=== PATIENT | male | born 1960 | race Hispanic/Latino ===

== ENCOUNTER → 2018-12-12 | Outpatient (CLI) | payer MEDICARE, BC | END | disposition home or self-care (01) | LOC: RAH 13:57 | PROVIDERS: ATTEND Nurse Practitioner Family | DX: J34.2 Deviated nasal septum (principal) | CPT/HCPCS: 70450 ==

== ENCOUNTER → 2019-04-04 | Outpatient (CLI) | payer MEDICARE ==
[~2019-04-04] MED LIST: IOHEXOL 350 MG/ML 100ML INFUS..BTL IV ONE; IOHEXOL-350 75 ML VIAL IV ONE
== END | disposition home or self-care (01) ==
LOC: RAH 08:31
PROVIDERS: ATTEND Nurse Practitioner Family
DX: E27.9 Disorder of adrenal gland, unspecified (principal); N28.1 Cyst of kidney, acquired; J98.11 Atelectasis; R94.5 Abnormal results of liver function studies
CPT/HCPCS: 74170; Q9967

== ENCOUNTER 2019-11-28 14:00 | Inpatient (IN) | payer MEDICARE ==
[2019-11-27 10:36] LABS: BASOPHILS % (AUTO) 1.4 % (0.0-5.0); EOSINOPHILS % (AUTO) 4.7 % (0.0-8.0); HEMATOCRIT 43.1 % (42-54); LYMPHOCYTES % (AUTO) 33.6 % (21.0-51.0); MEAN CORPUSCULAR HEMOGLOBIN 28.7 pg (27.0-33.0); MEAN CORPUSCULAR HGB CONC 33.2 g/dL (32.0-36.0); MEAN CORPUSCULAR VOLUME 86.4 fL (79-99); MONOCYTES % (AUTO) 8.4 % (3.0-13.0); NEUTROPHILS % (AUTO) 51.5 % (40.0-77.0); PLATELET COUNT (AUTO) 432 K/uL (130-400); RED BLOOD CELL COUNT(AUTO) 4.99 MIL/uL (4.50-6.20); RED CELL DISTRIBUTION WIDTH 13.7 % (11.0-15.5); WHITE BLOOD COUNT (AUTO) 10.1 K/uL (4.8-10.8)
[2019-11-27 10:52] LABS: ALBUMIN 3.6 g/dL (3.5-5.0); BILIRUBIN,TOTAL 0.3 mg/dL (0.2-1.0); POTASSIUM 3.7 mmol/L (3.5-5.1); TOTAL PROTEIN, SERUM 8.5 g/dL (6.0-8.3)
[2019-11-27 10:56] LABS: PARTIAL THROMBOPLASTIN TIME 27.8 SEC (26.3-35.5)
[2019-11-27 12:35] LABS: INR 0.94 (0.85-1.15); PROTHROMBIN TIME 10.2 SEC (9.6-11.6)
[~2019-11-28] VITALS: Ht 157.5 cm; Wt 87.5 kg
[2019-11-30] MEDS: CEFAZOLIN SODIUM 1 GM VIAL IVP SCH (12:45)
--- NOTE | 2019-12-01 12:29 | NUR ---
Per Doctor Saul need to advise patient to come in early Wednesday for treatment prior to surgery on 12/04/19, I spoke to patient and he is aware to be here Wednesday12/03/19 at 8am per house.
[2019-12-01] MEDS: CEFAZOLIN SODIUM 1 GM VIAL IVP SCH (12:45)
[2019-12-02] MEDS: CEFAZOLIN SODIUM 1 GM VIAL IVP SCH (12:45)
[2019-12-03 08:00] VITALS: BP 132/65
--- NOTE | 2019-12-03 08:45 | NUR ---
DIRECT ADMIT pt ambulated to room 328 accopm by nurse and sister denies need for wheelchair oriented pt to room pt has home medications in room with him has mati hearing aides with him necklace and ring (gave to sister on admit ) discussed plan of care with pt and sister ,voices understanding ,denies questions pt speaks wolof sister speaks Cameroonian and Vietnamese
[2019-12-03] MEDS ORDERED: HYDR25TA PO (09:08)
[2019-12-03] MEDS ORDERED: LEVO150T11 PO (09:08)
[2019-12-03] MEDS ORDERED: METO50TA18 PO (09:08)
[2019-12-03] MEDS ORDERED: MECL-160 PO (09:08)
[2019-12-03] MEDS ORDERED: DOXA1TAB2 PO (09:08)
[2019-12-03] MEDS ORDERED: DULO60CA64 PO (09:08)
[2019-12-03] MEDS ORDERED: PRAV80TA21 PO (09:08)
[2019-12-03] MEDS ORDERED: AMLO-258 PO (09:08)
[2019-12-03] MEDS ORDERED: INSU500I SQ ×2 (09:08→09:13)
[2019-12-03] MEDS ORDERED: HUM (09:08)
[2019-12-03] MEDS ORDERED: POTASSIUM CL ER PO (09:08)
[2019-12-03] MEDS ORDERED: INSULIN GLARGINE 100 UNITS/ML 10 ML VIAL SQ SCH ×2 (09:30→21:00)
[2019-12-03] MEDS ORDERED: SODIUM CHLORIDE 0.9% 1000ML 1,000 ML IV ONE (09:52)
[2019-12-03] MEDS ORDERED: SODIUM CHLORIDE 0.9% 1000ML 1,000 ML IV SCH (10:00)
[2019-12-03 10:09] LABS: BASOPHILS % (AUTO) 1.5 % (0.0-5.0); EOSINOPHILS % (AUTO) 4.2 % (0.0-8.0); HEMATOCRIT 41.8 % (42-54); LYMPHOCYTES % (AUTO) 36.4 % (21.0-51.0); MEAN CORPUSCULAR HEMOGLOBIN 28.8 pg (27.0-33.0); MEAN CORPUSCULAR VOLUME 84.8 fL (79-99); MONOCYTES % (AUTO) 8.6 % (3.0-13.0); PLATELET COUNT (AUTO) 454 K/uL (130-400); RED BLOOD CELL COUNT(AUTO) 4.93 MIL/uL (4.50-6.20); RED CELL DISTRIBUTION WIDTH 13.6 % (11.0-15.5); WHITE BLOOD COUNT (AUTO) 8.8 K/uL (4.8-10.8)
[2019-12-03 10:26] LABS: HEMOGLOBIN A1C 7.5 % (4.0-6.0)
[2019-12-03 10:47] LABS: ALBUMIN 3.5 g/dL (3.5-5.0); BILIRUBIN,TOTAL 0.3 mg/dL (0.2-1.0); CREATININE 0.9 mg/dL (0.5-1.5); POTASSIUM 3.7 mmol/L (3.5-5.1); TOTAL PROTEIN, SERUM 8.1 g/dL (6.0-8.3)
[2019-12-03 12:00] VITALS: BP_SYST 120; BP_SYST 122; BP_SYST 134; BP_DIAS 59; BP_DIAS 65
[2019-12-03] MEDS: CEFAZOLIN SODIUM 1 GM VIAL IVP SCH (12:45)
[2019-12-03] MEDS ORDERED: INSULIN HUMULIN R 100 UNIT/ML 3ML ONE (12:52)
[2019-12-03] MEDS: INSULIN HUMULIN R 100 UNIT/ML 3ML SQ SCH ×3 (12:54→21:57)
[2019-12-03] MEDS: NS-20 MEQ KCL 1000ML 1,000 ML IV SCH ×3 (13:00→23:27)
[2019-12-03] MEDS ORDERED: POTASSIUM CHLORIDE 20 MEQ in SODIUM CHLORIDE 0.9% 1000ML 1,000 ML IV SCH (13:00)
[2019-12-03 16:00] VITALS: BP 149/64
[2019-12-03] MEDS: INSULIN LISPRO 100 UNIT/ML 3ML SQ SCH ×2 (16:12→19:06)
[2019-12-03] MEDS ORDERED: INSULIN LISPRO 100 UNIT/ML 3ML SQ SCH (16:30)
--- NOTE | 2019-12-03 17:42 | NUR ---
INITIAL: Met w pt and sister this afternoon to discuss dcp. Pt mentions that prior to admission he was living w his sister Anne. Pt is independent w ambulation and ADLs. He does not own any DME or receive services. Per pt he feels safe and comfortable to return home at ct, however if Md recommends he is willing to consider SNF. CM to continue to follow and wait for MD recommendations. Addendum: 12/03/19 at 1743 by PEACE OTOOLE Amended: Links added.
[2019-12-03 20:00] VITALS: BP 156/68
[2019-12-03] MEDS: METOPROLOL SUCCINATE 50 MG TAB.SR.24H PO SCH (21:50)
--- NOTE | 2019-12-03 21:50 | NUR ---
MEDS SHIFT ASSESSMENT DONE, PLEASE REFER TO CHART. PT HAS SPEECH IMPEDIMENT AND IS [place], FAMILY IS BEING ALLOWED TO STAY OVERNIGHT. DUE MEDS ADMINISTERED, TOLERATED WELL. INSTRUCTED TO BE NPO POST MN, VERBALIZES UNDERSTANDING. PT REQUESTED TO SHOWER IN THE AM. KEPT COMFORTABLE IN BED. CALL LIGHT WITHIN REACH. WILL MONITOR PT. Addendum: 12/04/19 at 0139 by KYLE CASTANEDA RN RN Amended: Links added.
[2019-12-03] MEDS: HYDROCORTISONE SOD SUCCINATE 100 MG/2 ML VIAL IV SCH (22:02)
--- NOTE | 2019-12-03 23:30 | NUR ---
RECEIVED ORDERS FROM DR SANTO ENTERED REMOTELY. PLEASE REFER TO CPOE. INCREASED IVF REGULATION TO 200CC/HR. HOME MEDS OF DOXAZOSINE 1MG FROM PT'S HOME MEDS GIVEN, TOTAL OF 10 PILLS. REMINDED PT TO BE NPO POST MN. ENCOURAGED TO REST AND SLEEP. FAMILY IN ATTENDANCE TO NEEDS AT THIS TIME.
[2019-12-04] VITALS (13 sets, daily range): BP systolic 106–146; BP diastolic 49–80
--- NOTE | 2019-12-04 02:00 | NUR ---
ROUNDS PT RESTING WELL, FAIRLY ASLEEP. NO DISTRESS NOTED. KEPT COMFORTABLE AND RESTED. CALL LIGHT WITHIN REACH. FAMILY ASLEEP AT BEDSIDE.
--- NOTE | 2019-12-04 05:13 | NUR ---
ROUNDS PT RESTING WELL. NO DISTRESS NOTED. NO CONCERNS VERBALIZED. KEPT NPO. FOR MORE CARE.
[2019-12-04] MEDS: NS-20 MEQ KCL 1000ML 1,000 ML IV SCH ×3 (05:42→16:31)
[2019-12-04 06:11] LABS: BASOPHILS % (AUTO) 1.4 % (0.0-5.0); EOSINOPHILS % (AUTO) 4.4 % (0.0-8.0); HEMATOCRIT 40.9 % (42-54); MEAN CORPUSCULAR HEMOGLOBIN 28.1 pg (27.0-33.0); MONOCYTES % (AUTO) 8.2 % (3.0-13.0); NEUTROPHILS % (AUTO) 52.8 % (40.0-77.0); PLATELET COUNT (AUTO) 463 K/uL (130-400); RED BLOOD CELL COUNT(AUTO) 4.81 MIL/uL (4.50-6.20); RED CELL DISTRIBUTION WIDTH 13.3 % (11.0-15.5); WHITE BLOOD COUNT (AUTO) 9.6 K/uL (4.8-10.8)
[2019-12-04] MEDS: INSULIN HUMULIN R 100 UNIT/ML 3ML SQ SCH ×3 (06:17→17:28)
[2019-12-04 06:46] LABS: ALBUMIN 3.3 g/dL (3.5-5.0); BILIRUBIN,TOTAL 0.3 mg/dL (0.2-1.0); CREATININE 0.7 mg/dL (0.5-1.5); POTASSIUM 3.5 mmol/L (3.5-5.1); TOTAL PROTEIN, SERUM 7.8 g/dL (6.0-8.3)
--- NOTE | 2019-12-04 07:10 | NUR ---
SURGERY PT ALREADY TAKEN DOWN TO SX BY OR TEAM. FOR MORE CARE AND MANAGEMENT.
[2019-12-04] MEDS ORDERED: SUCCINYLCHOLINE 200MG/10ML SYR ONE (08:40)
[2019-12-04] MEDS ORDERED: PROPOFOL 10 MG/ML 20ML VIAL IV ONE ×2 (08:40→14:09)
[2019-12-04] MEDS ORDERED: LIDOCAINE PF 2% 5ML ABBOJECT ONE (08:40)
[2019-12-04] MEDS: HYDROCORTISONE SOD SUCCINATE 100 MG/2 ML VIAL IV SCH ×2 (09:00→14:00)
[2019-12-04] MEDS: METOPROLOL SUCCINATE 50 MG TAB.SR.24H PO SCH ×2 (09:00→21:00)
[2019-12-04] MEDS ORDERED: ROCURONIUM 10MG/1ML SYR 10 MG/ML ML ONE ×4 (09:14→12:33)
[2019-12-04] MEDS: CEFAZOLIN SODIUM 1 GM VIAL IVP SCH (09:45)
[2019-12-04 11:37] LABS: ABG BASE EXCESS -3.4 mmol/L (-2.0-3.0); ABG HCO3 23.1 mmol/L (21.0-28.0); ABG OXYGEN SATURATION 97.9 % (95.0-99.0); ABG PCO2 47 mmHg (35-48)
[2019-12-04] MEDS ORDERED: ALBUMIN (HUMAN) 5% 250 ML IV ONE ×3 (11:38→12:17)
[2019-12-04 11:40] LABS: ABG BASE EXCESS -2.8 mmol/L (-2.0-3.0); ABG HCO3 24.3 mmol/L (21.0-28.0); ABG OXYGEN SATURATION 97.9 % (95.0-99.0); ABG PCO2 52 mmHg (35-48)
[2019-12-04 11:45] LABS: ABG BASE EXCESS -3.1 mmol/L (-2.0-3.0); ABG HCO3 23.3 mmol/L (21.0-28.0); ABG PCO2 47 mmHg (35-48)
[2019-12-04] MEDS ORDERED: NOREPINEPHRINE BITARTRATE 1 MG/1 ML ML IV ONE ×2 (12:32→13:21)
[2019-12-04] MEDS ORDERED: GLYCOPYRROLATE 1 MG/5 ML SYRINGE ONE (12:32)
[2019-12-04] MEDS ORDERED: EPINEPHRINE 1 MG/ML AMPULE ONE (12:32)
[2019-12-04 12:42] LABS: ABG BASE EXCESS -6.5 mmol/L (-2.0-3.0); ABG HCO3 22.3 mmol/L (21.0-28.0); ABG PCO2 61 mmHg (35-48)
[2019-12-04] MEDS ORDERED: SODIUM BICARB 8.4% 50ML SYRINGE ONE ×3 (12:44→13:39)
[2019-12-04] MEDS ORDERED: EPINEPHRINE 1 MG/ML 30ML VIAL IJ ONE (12:59)
[2019-12-04] MEDS ORDERED: FENTANYL CITRATE PF 50 MCG/1 ML 5ML AMP IV ONE ×2 (13:21)
[2019-12-04] MEDS ORDERED: SODIUM BICARB 50MEQ 50ML VIAL 50 ML ONE ×2 (13:48→15:22)
[2019-12-04 13:53] LABS: ABG BASE EXCESS -1.6 mmol/L (-2.0-3.0); ABG HCO3 25.2 mmol/L (21.0-28.0); ABG OXYGEN SATURATION 98.7 % (95.0-99.0); ABG PCO2 53 mmHg (35-48)
--- NOTE | 2019-12-04 14:14 | NUR ---
pt to ICU received pt from OR
--- NOTE | 2019-12-04 15:34 | NUR ---
Lottie notified of consultation Lottie Cabral DIRECT SUPPORT STAFF MEMBER, notified of consultation, updated on pt status, orders received.
[2019-12-04] MEDS ORDERED: SODIUM BICARB 50MEQ 50ML VIAL IV ONE (15:45)
[2019-12-04] MEDS ORDERED: SODIUM CHLORIDE 0.9% 1000ML 1,000 ML IV SCH (15:45)
[2019-12-04] MEDS ORDERED: LIDOCAINE HCL-MPF 1% 2ML VIAL IV PRN (15:45)
[2019-12-04 16:17] LABS: ABG BASE EXCESS -5.9 mmol/L (-2.0-3.0); ABG HCO3 23.1 mmol/L (21.0-28.0); ABG OXYGEN SATURATION 91.3 % (95.0-99.0); ABG PCO2 60 mmHg (35-48)
[2019-12-04 16:24] LABS: HEMATOCRIT 28.6 % (42-54)
[2019-12-04 17:08] LABS: INR 1.06 (0.85-1.15); PARTIAL THROMBOPLASTIN TIME 23.8 SEC (26.3-35.5); PROTHROMBIN TIME 11.4 SEC (9.6-11.6)
[2019-12-04] MEDS: MIDAZOLAM 100MG-0.9% NS 100ML 100ML BAG IV PRN (17:36)
[2019-12-04] MEDS: FENTANYL 2500MCG+NS 250ML 250 ML IV SCH (17:36)
[2019-12-04] MEDS: INSULIN LISPRO 100 UNIT/ML 3ML SQ SCH (17:37)
[2019-12-04 17:45] LABS: ABG BASE EXCESS -8.6 mmol/L (-2.0-3.0); ABG HCO3 18.3 mmol/L (21.0-28.0); ABG OXYGEN SATURATION 92.7 % (95.0-99.0); ABG PCO2 43 mmHg (35-48)
[2019-12-04] MEDS ORDERED: SODIUM BICARB 50MEQ 50ML VIAL IV SCH (18:10)
[2019-12-04] MEDS ORDERED: SODIUM BICARB 50MEQ 50ML VIAL 150 ML ONE (18:18)
[2019-12-04] MEDS ORDERED: HYDROCORTISONE SOD SUCCINATE 100 MG/2 ML VIAL IV SCH (19:45)
[2019-12-04] MEDS ORDERED: NOREPINEPHRINE 4MG/NS 250ML 250 ML IV ONE (20:27)
[2019-12-04] MEDS: POTASSIUM CHLORIDE 20MEQ/100ML 100 ML IV PRN (20:46)
[2019-12-04 21:02] LABS: CREATININE 1.5 mg/dL (0.5-1.5); POTASSIUM 3.5 mmol/L (3.5-5.1)
[2019-12-04 23:13] LABS: HEMATOCRIT 28.7 % (42-54)
[2019-12-05] VITALS (24 sets, daily range): BP systolic 104–143; BP diastolic 48–74
[2019-12-05] MEDS ORDERED: SODIUM CHLORIDE 0.9% 1000ML 1,000 ML IV SCH (00:15)
[2019-12-05] MEDS ORDERED: DEXTROSE 5 % AND 0.9 % NACL 1,000 ML IV SCH (02:15)
[2019-12-05] MEDS ORDERED: DEXTROSE 5 % AND 0.9 % NACL 1,000 ML IV ONE (02:20)
[2019-12-05 04:54] LABS: ABG BASE EXCESS 4.6 mmol/L (-2.0-3.0); ABG HCO3 29.6 mmol/L (21.0-28.0); ABG OXYGEN SATURATION 95.8 % (95.0-99.0); ABG PCO2 45 mmHg (35-48)
[2019-12-05 05:27] LABS: BASOPHILS % (AUTO) 0.2 % (0.0-5.0); EOSINOPHILS % (AUTO) 1.6 % (0.0-8.0); HEMATOCRIT 26.2 % (42-54); LYMPHOCYTES % (AUTO) 11.7 % (21.0-51.0); MEAN CORPUSCULAR HEMOGLOBIN 28.5 pg (27.0-33.0); MEAN CORPUSCULAR HGB CONC 33.6 g/dL (32.0-36.0); MEAN CORPUSCULAR VOLUME 84.8 fL (79-99); MONOCYTES % (AUTO) 9.9 % (3.0-13.0); NEUTROPHILS % (AUTO) 76.3 % (40.0-77.0); PLATELET COUNT (AUTO) 266 K/uL (130-400); RED BLOOD CELL COUNT(AUTO) 3.09 MIL/uL (4.50-6.20); RED CELL DISTRIBUTION WIDTH 14.2 % (11.0-15.5); WHITE BLOOD COUNT (AUTO) 9.6 K/uL (4.8-10.8)
[2019-12-05] MEDS: HYDROCORTISONE SOD SUCCINATE 100 MG/2 ML VIAL IV SCH ×4 (05:35→20:39)
[2019-12-05 05:54] LABS: ALBUMIN 2.9 g/dL (3.5-5.0); BILIRUBIN,TOTAL 0.3 mg/dL (0.2-1.0); MAGNESIUM 1.5 mg/dL (1.80-2.40); POTASSIUM 3.5 mmol/L (3.5-5.1); TOTAL PROTEIN, SERUM 5.9 g/dL (6.0-8.3)
[2019-12-05] MEDS: MIDAZOLAM 100MG-0.9% NS 100ML 100ML BAG IV PRN (06:00)
[2019-12-05] MEDS: FENTANYL 2500MCG+NS 250ML 250 ML IV SCH (06:02)
[2019-12-05] MEDS: POTASSIUM CHLORIDE 20MEQ/100ML 100 ML IV PRN ×2 (06:30→18:17)
[2019-12-05] MEDS: MAGNESIUM 2GM PREMIX 50ML 50 ML IV PRN ×2 (06:31→09:50)
[2019-12-05] MEDS: METOPROLOL SUCCINATE 50 MG TAB.SR.24H PO SCH ×2 (09:00→20:40)
[2019-12-05] MEDS ORDERED: GLUCAGON 1MG KIT 1 MG ML IM PRN (09:45)
[2019-12-05] MEDS ORDERED: LIDOCAINE HCL-MPF 1% 2ML VIAL IV PRN ×2 (09:45)
[2019-12-05] MEDS ORDERED: POTASSIUM CHLORIDE 20 MEQ ERTAB PO PRN (09:45)
[2019-12-05] MEDS ORDERED: POTASSIUM CHLORIDE 20MEQ/100ML 100 ML IV PRN (09:45)
[2019-12-05] MEDS ORDERED: DEXTROSE 50%-WATER 50 ML DISP.SYRIN IV PRN (09:45)
[2019-12-05] MEDS: FUROSEMIDE 10 MG/ML 2ML VIAL IV SCH ×2 (09:51→20:40)
[2019-12-05] MEDS ORDERED: DEXTROSE 5 %-0.45 % NACL 1,000 ML IV ONE (10:00)
[2019-12-05] MEDS ORDERED: DEXTROSE 5 %-0.45 % NACL 1,000 ML IV SCH (10:45)
[2019-12-05 12:27] LABS: HEMATOCRIT 25.2 % (42-54)
--- NOTE | 2019-12-05 16:15 | NUR ---
PT HAD SOME SHIVERING AND THEN HAD A SEIZURE TYPE OF ACTIVITY OF ALL 4 EXTREMITIES AND EYES ROLLED BACK AND ARCHED BACK ALSO. NOTIFIED LUISANA VEGA AND ORDERS NOTED. DR. MOLINA WAS PAGED AND NOTIFIED OF CONSULT AND REASON FOR CONSULT. ORDERS NOTED.
--- NOTE | 2019-12-05 17:15 | NUR ---
PT TAKEN DOWN FOR CT SCAN AND TO HAVE STAT READING. SISTER HAS REMAINED AT BEDSIDE.
[2019-12-05 17:22] LABS: POTASSIUM 3.2 mmol/L (3.5-5.1)
--- NOTE | 2019-12-05 18:10 | NUR ---
DR. MOLINA WAS SEND RESULTS OF CT SCAN AND WILL CONTINUE TO MONITOR THE PATIENT FOR ANY FURTHER ACTIVITY.
[2019-12-05] MEDS: LEVETIRACETAM 1,500 MG in SODIUM CHLORIDE 0.9% 100 ML IV SCH (18:23)
[2019-12-05] MEDS: DEXTROSE 5%-WATER 500 ML IV SCH (21:30)
[2019-12-06] VITALS (21 sets, daily range): BP systolic 135–174; BP diastolic 54–74
[2019-12-06] MEDS: MIDAZOLAM 100MG-0.9% NS 100ML 100ML BAG IV PRN (00:21)
[2019-12-06 03:25] LABS: BASOPHILS % (AUTO) 0.6 % (0.0-5.0); EOSINOPHILS % (AUTO) 1.1 % (0.0-8.0); HEMATOCRIT 24.7 % (42-54); LYMPHOCYTES % (AUTO) 16.6 % (21.0-51.0); MEAN CORPUSCULAR HGB CONC 33.2 g/dL (32.0-36.0); MEAN CORPUSCULAR VOLUME 87.3 fL (79-99); MONOCYTES % (AUTO) 7.5 % (3.0-13.0); NEUTROPHILS % (AUTO) 73.7 % (40.0-77.0); PLATELET COUNT (AUTO) 253 K/uL (130-400); RED BLOOD CELL COUNT(AUTO) 2.83 MIL/uL (4.50-6.20); RED CELL DISTRIBUTION WIDTH 14.9 % (11.0-15.5); WHITE BLOOD COUNT (AUTO) 12.2 K/uL (4.8-10.8)
[2019-12-06 03:40] LABS: ALBUMIN 2.7 g/dL (3.5-5.0); BILIRUBIN,TOTAL 0.2 mg/dL (0.2-1.0); POTASSIUM 3.3 mmol/L (3.5-5.1); TOTAL PROTEIN, SERUM 6.1 g/dL (6.0-8.3)
[2019-12-06] MEDS ORDERED: DEXTROSE 5 %-0.45 % NACL 1,000 ML IV ONE (05:58)
[2019-12-06] MEDS: LEVETIRACETAM 1,500 MG in SODIUM CHLORIDE 0.9% 100 ML IV SCH ×2 (06:03→19:21)
[2019-12-06] MEDS: POTASSIUM CHLORIDE 20MEQ/100ML 100 ML IV PRN ×3 (06:03→09:22)
[2019-12-06] MEDS: DEXTROSE 10%-WATER 1,000 ML IV SCH (06:37)
[2019-12-06] MEDS: DEXTROSE 5%-WATER 500 ML IV SCH ×2 (07:30→17:30)
[2019-12-06] MEDS: FUROSEMIDE 10 MG/ML 2ML VIAL IV SCH ×2 (09:04→20:43)
[2019-12-06] MEDS: METOPROLOL SUCCINATE 50 MG TAB.SR.24H PO SCH ×2 (09:04→20:43)
[2019-12-06] MEDS: HYDROCORTISONE SOD SUCCINATE 100 MG/2 ML VIAL IV SCH ×3 (09:04→20:42)
[2019-12-06] MEDS ORDERED: COMPOUND NARC IV MISC 1 EACH IVSOLN MISC PRN (10:00)
--- NOTE | 2019-12-06 11:00 | NUR ---
DR. SARMIENTO HERE AND TALKED WITH SISTER AND ADVISED HER THE PLAN OF CARE AND STUDIES THAT WERE GOING TO BE DONE PRIOR TO EXTUBATING.
[2019-12-06] MEDS: LACOSAMIDE 200 MG/20 ML VIAL IV SCH ×2 (11:22→19:20)
[2019-12-06] MEDS ORDERED: HYDRALAZINE HCL 20 MG/ML VIAL IV PRN (11:45)
[2019-12-06] MEDS: HYDRALAZINE HCL 20 MG/ML VIAL IV PRN (12:17)
[2019-12-06] MEDS ORDERED: COMPOUND IV MISC 1 EACH IVSOLN MISC PRN (13:15)
[2019-12-06 13:19] LABS: CREATININE 0.9 mg/dL (0.5-1.5); POTASSIUM 3.7 mmol/L (3.5-5.1)
--- NOTE | 2019-12-06 15:00 | NUR ---
INTRA ABDOMINAL PRESSURE MEASURED AND LUISANA VEGA NP WAS ADVISED OF THE RESULTS.
--- NOTE | 2019-12-06 15:30 | NUR ---
2D ECHO DONE INCLUDING THE BUBBLE STUDY.
[2019-12-06] MEDS ORDERED: METOPROLOL TARTRATE 1 MG/ML 5ML VIAL IV PRN (22:45)
[2019-12-07] VITALS (19 sets, daily range): BP systolic 146–174; BP diastolic 60–81
[2019-12-07] MEDS: MIDAZOLAM 100MG-0.9% NS 100ML 100ML BAG IV PRN (00:39)
[2019-12-07] MEDS: HYDRALAZINE HCL 20 MG/ML VIAL IV PRN (02:37)
[2019-12-07] MEDS: DEXTROSE 5%-WATER 500 ML IV SCH ×3 (03:30→23:30)
[2019-12-07 04:15] LABS: BASOPHILS % (AUTO) 0.6 % (0.0-5.0); EOSINOPHILS % (AUTO) 0.1 % (0.0-8.0); HEMATOCRIT 28.2 % (42-54); LYMPHOCYTES % (AUTO) 16.5 % (21.0-51.0); MEAN CORPUSCULAR HEMOGLOBIN 28.4 pg (27.0-33.0); MEAN CORPUSCULAR HGB CONC 31.6 g/dL (32.0-36.0); MEAN CORPUSCULAR VOLUME 90.1 fL (79-99); MONOCYTES % (AUTO) 7.7 % (3.0-13.0); NEUTROPHILS % (AUTO) 73.9 % (40.0-77.0); NUCLEATED RED BLOOD CELLS 0.4 % (0.0-0.19); PLATELET COUNT (AUTO) 301 K/uL (130-400); RED BLOOD CELL COUNT(AUTO) 3.13 MIL/uL (4.50-6.20); RED CELL DISTRIBUTION WIDTH 14.8 % (11.0-15.5); WHITE BLOOD COUNT (AUTO) 13.4 K/uL (4.8-10.8)
[2019-12-07 04:45] LABS: ALBUMIN 2.9 g/dL (3.5-5.0); BILIRUBIN,TOTAL 0.3 mg/dL (0.2-1.0); POTASSIUM 3.7 mmol/L (3.5-5.1); TOTAL PROTEIN, SERUM 7.2 g/dL (6.0-8.3)
[2019-12-07] MEDS: POTASSIUM CHLORIDE 20MEQ/100ML 100 ML IV PRN (06:22)
[2019-12-07] MEDS: LEVETIRACETAM 1,500 MG in SODIUM CHLORIDE 0.9% 100 ML IV SCH ×2 (06:33→18:01)
[2019-12-07] MEDS: METOPROLOL SUCCINATE 50 MG TAB.SR.24H PO SCH ×2 (08:27→20:33)
[2019-12-07] MEDS: ENOXAPARIN SODIUM 40 MG/0.4 ML SYRINGE SQ SCH (08:27)
[2019-12-07] MEDS: FAMOTIDINE/PF 20 MG/2 ML VIAL IV SCH ×2 (08:28→20:32)
[2019-12-07] MEDS: FUROSEMIDE 10 MG/ML 2ML VIAL IV SCH ×2 (08:29→20:32)
[2019-12-07] MEDS: HYDROCORTISONE SOD SUCCINATE 100 MG/2 ML VIAL IV SCH ×3 (08:31→20:35)
[2019-12-07] MEDS: LACOSAMIDE 200 MG/20 ML VIAL IV SCH ×2 (08:37→20:32)
[2019-12-07] MEDS: DEXTROSE 10%-WATER 1,000 ML IV SCH (12:45)
[2019-12-08] VITALS (24 sets, daily range): BP systolic 112–178; BP diastolic 47–90
--- NOTE | 2019-12-08 00:15 | NUR ---
Trevor markham/Dr. Mckeon and was notified by the answering service that Dr. Blake is personal service representative for tonight. Dr. Blake baged at this time to notify of patient status, Fever of 102.7. Patient is hemodynamically stable and no distress noted.
[2019-12-08] MEDS: HYDRALAZINE HCL 20 MG/ML VIAL IV PRN (00:38)
[2019-12-08] MEDS: DEXTROSE 10%-WATER 1,000 ML IV SCH ×2 (00:40→08:45)
[2019-12-08] MEDS: PROPOFOL 1000 MG/100 ML 100 ML IV PRN ×2 (00:55→10:46)
[2019-12-08] MEDS ORDERED: ZOSYN 3.375GM+NS 50ML 50 ML IV ONE (01:29)
[2019-12-08] MEDS ORDERED: ACETAMINOPHEN 650 MG SUPPOSITORY RC ONE (01:30)
[2019-12-08] MEDS: ZOSYN 3.375GM+NS 50ML 50 ML IV SCH ×3 (02:00→17:04)
[2019-12-08 04:19] LABS: HEMATOCRIT 26.1 % (42-54); MEAN CORPUSCULAR HEMOGLOBIN 28.4 pg (27.0-33.0); MEAN CORPUSCULAR HGB CONC 31.4 g/dL (32.0-36.0); MEAN CORPUSCULAR VOLUME 90.3 fL (79-99); NUCLEATED RED BLOOD CELLS 0.5 % (0.0-0.19); RED BLOOD CELL COUNT(AUTO) 2.89 MIL/uL (4.50-6.20); RED CELL DISTRIBUTION WIDTH 14.7 % (11.0-15.5); WHITE BLOOD COUNT (AUTO) 11.5 K/uL (4.8-10.8)
[2019-12-08 04:28] LABS: CREATININE 0.9 mg/dL (0.5-1.5); POTASSIUM 3.3 mmol/L (3.5-5.1)
[2019-12-08] MEDS: LEVETIRACETAM 1,500 MG in SODIUM CHLORIDE 0.9% 100 ML IV SCH ×2 (06:06→17:49)
[2019-12-08] MEDS: INSULIN REGULAR, HUMAN 3ML 100 UNIT in SODIUM CHLORIDE 0.9% 99 ML IV SCH ×2 (06:09)
[2019-12-08] MEDS: POTASSIUM CHLORIDE 20MEQ/100ML 100 ML IV PRN ×4 (06:10→13:11)
--- NOTE | 2019-12-08 07:30 | NUR ---
ASSESSMENT Orally intubated - vent settings as recorded. Pt not on sedation but not arousable with verbal stimulation. Pt with documented hearing impairment. Brief eye opening with tactile stimulation but pt does not focus or follow commands. Gross motor movement of UE's with tactile stimulation. No visible movement of LE's - possibly due to presence of epidural catheter/infusion. SR/ST on tele with strong apical heart tones. Breath sounds diminished to RLL. No evidence of respiratory distress. Skin is warm, dry. Generalized edema noted. Right IJ central line in use. Abd incision is clean, dry. Steri strips intact. Abd obese, soft with absent bowel sounds. OGT placement verified per routine - clamped. TF off pending SBT and possible extubation today. F/C patent - yellow urine. PIV to RH patent - insulin gtt infusing per protocol. Assessment completed/recorded.
--- NOTE | 2019-12-08 07:45 | NUR ---
PT CARE Epidural catheter d/c'd by . Will continue to hold lovenox x4h post removal as instructed by .
--- NOTE | 2019-12-08 07:45 | NUR ---
MD ROUNDS in to see pt - updated. Plan of care discussed. Planned SBT today. TF remains on hold.
--- NOTE | 2019-12-08 08:23 | NUR ---
STATUS Placed on CPAP at prescribed setting by R.T. - will observe pt tolerance.
[2019-12-08] MEDS: DEXTROSE 5%-WATER 500 ML IV SCH (09:30)
[2019-12-08] MEDS: HYDROCORTISONE SOD SUCCINATE 100 MG/2 ML VIAL IV SCH ×3 (09:37→21:11)
[2019-12-08] MEDS: FUROSEMIDE 10 MG/ML 2ML VIAL IV SCH ×2 (09:38→21:12)
[2019-12-08] MEDS: FAMOTIDINE/PF 20 MG/2 ML VIAL IV SCH ×2 (09:38→21:11)
[2019-12-08] MEDS: METOPROLOL SUCCINATE 50 MG TAB.SR.24H PO SCH (09:38)
--- NOTE | 2019-12-08 10:10 | NUR ---
STATUS Placed back on IMV vent settings - pt tachypneic/hypertensive - O2 sat 88%.
--- NOTE | 2019-12-08 10:46 | NUR ---
PT CARE Placed on low dose sedation for pt comfort.
[2019-12-08] MEDS: LACOSAMIDE 200 MG/20 ML VIAL IV SCH ×2 (10:52→21:12)
[2019-12-08 12:02] LABS: ABG OXYGEN SATURATION 89.7 % (95.0-99.0); ABG PCO2 45 mmHg (35-48)
[2019-12-08 12:03] LABS: ABG BASE EXCESS 1.5 mmol/L (-2.0-3.0); ABG HCO3 26.1 mmol/L (21.0-28.0); ABG OXYGEN SATURATION 95.3 % (95.0-99.0); ABG PCO2 41 mmHg (35-48)
[2019-12-08 12:04] LABS: ABG BASE EXCESS 4.4 mmol/L (-2.0-3.0); ABG HCO3 28.8 mmol/L (21.0-28.0); ABG OXYGEN SATURATION 97.3 % (95.0-99.0); ABG PCO2 42 mmHg (35-48)
--- NOTE | 2019-12-08 13:00 | NUR ---
MD VISIT in for afternoon rounds - updated. Pt placed on SBT, CPAP 5, PS8, by MD. Will observe pt tolerance and f/u with MD regarding potential extubation. Pt's sister remains at bedside - briefly updated by MD - questions addressed.
[2019-12-08] MEDS: ENOXAPARIN SODIUM 40 MG/0.4 ML SYRINGE SQ SCH (13:11)
[2019-12-08] MEDS ORDERED: FENTANYL CITRATE PF 0.05 MG/ML 1,000 MCG in SODIUM CHLORIDE 0.9% 100 ML IV PRN (16:00)
--- NOTE | 2019-12-08 16:00 | NUR ---
PT CARE Pt placed back on AC vent settings - pt agitated/restless.
--- NOTE | 2019-12-08 16:10 | NUR ---
STATUS Fentanyl gtt initiated - pt agitated/restless even with higher dose of sedation. Will observe med effect and titrate meds accordingly.
[2019-12-08] MEDS ORDERED: FENTANYL 2500MCG+NS 250ML 250 ML IV SCH (16:15)
[2019-12-08] MEDS: ACETAMINOPHEN 650 MG SUPPOSITORY RC PRN ×2 (16:49→21:16)
--- NOTE | 2019-12-08 19:00 | NUR ---
SHIFT REPORT Care of pt endorsed to 7P RN. Discussed plan of care for 12/09/19 regarding planned SBT with possible extubation. Discussed 's preference for low dose sedation in order to facilitate sedation vacation in AM with SBT to follow.
[2019-12-08] MEDS: METOPROLOL TARTRATE 50 MG TAB NG SCH (21:12)
[2019-12-09] VITALS (23 sets, daily range): BP systolic 101–177; BP diastolic 42–76
[2019-12-09] MEDS: ZOSYN 3.375GM+NS 50ML 50 ML IV SCH ×3 (02:28→17:10)
[2019-12-09 03:43] LABS: HEMATOCRIT 25.7 % (42-54); MEAN CORPUSCULAR HEMOGLOBIN 28.1 pg (27.0-33.0); MEAN CORPUSCULAR HGB CONC 31.5 g/dL (32.0-36.0); MEAN CORPUSCULAR VOLUME 89.2 fL (79-99); NUCLEATED RED BLOOD CELLS 0.3 % (0.0-0.19); RED BLOOD CELL COUNT(AUTO) 2.88 MIL/uL (4.50-6.20); RED CELL DISTRIBUTION WIDTH 14.4 % (11.0-15.5); WHITE BLOOD COUNT (AUTO) 9.7 K/uL (4.8-10.8)
[2019-12-09 03:55] LABS: POTASSIUM 3.5 mmol/L (3.5-5.1)
[2019-12-09] MEDS: DEXTROSE 10%-WATER 1,000 ML IV SCH (04:21)
[2019-12-09] MEDS ORDERED: POTASSIUM CHLORIDE 10MEQ/100ML 100 ML IV ONE (04:25)
[2019-12-09] MEDS: LEVETIRACETAM 1,500 MG in SODIUM CHLORIDE 0.9% 100 ML IV SCH ×2 (07:13→17:10)
[2019-12-09 07:25] LABS: ABG HCO3 28.1 mmol/L (21.0-28.0); ABG OXYGEN SATURATION 97.8 % (95.0-99.0); ABG PCO2 49 mmHg (35-48)
[2019-12-09] MEDS: METOPROLOL TARTRATE 50 MG TAB NG SCH ×2 (08:54→20:56)
[2019-12-09] MEDS: FAMOTIDINE/PF 20 MG/2 ML VIAL IV SCH ×2 (08:54→20:55)
[2019-12-09] MEDS: FUROSEMIDE 10 MG/ML 2ML VIAL IV SCH ×2 (08:55→20:58)
[2019-12-09] MEDS: ENOXAPARIN SODIUM 40 MG/0.4 ML SYRINGE SQ SCH (08:55)
[2019-12-09] MEDS: DEXMEDETOMIDINE HCL 400 MCG in SODIUM CHLORIDE 0.9% 100 ML IV SCH ×3 (08:58→15:34)
[2019-12-09] MEDS: POTASSIUM CHLORIDE 20MEQ/100ML 100 ML IV PRN ×2 (08:58→21:00)
[2019-12-09] MEDS: LACOSAMIDE 200 MG/20 ML VIAL IV SCH ×2 (10:09→20:56)
--- NOTE | 2019-12-09 10:15 | NUR ---
Patient changed from propofol to precedex per Dr Moore rounding verbal orders; patient awakened simultaneously & pulled out OG & breathing tube, ambu bagged @ 100% sat, placed on bipap rate 14, fio2 50%, TV 440; will notify Dr Mckeon.
--- NOTE | 2019-12-09 10:46 | NUR ---
Updated patients sister on patient condition, began praying @ bedside, verbalized understanding, patient tolerating bipap; will repeat abg in 1 hour, bilateral mittens placed for patient safety.
--- NOTE | 2019-12-09 11:00 | NUR ---
Dr Nam here to evaluate patient, notified of self-extubation & no bm since 12/02; no new orders noted.
[2019-12-09 11:32] LABS: ABG BASE EXCESS 2.1 mmol/L (-2.0-3.0); ABG HCO3 27.4 mmol/L (21.0-28.0); ABG OXYGEN SATURATION 97.7 % (95.0-99.0); ABG PCO2 45 mmHg (35-48)
[2019-12-09] MEDS ORDERED: HALOPERIDOL LACTATE 5 MG/ML VIAL ONE (12:33)
[2019-12-09] MEDS ORDERED: DEXMEDETOMIDINE HCL IV SCH (12:45)
[2019-12-09] MEDS ORDERED: SODIUM CHLORIDE 0.9% IV SCH (12:45)
[2019-12-09] MEDS ORDERED: LORAZEPAM 2 MG/ML 1 ML VIAL ONE (14:36)
[2019-12-09] MEDS ORDERED: MORPHINE SULFATE 2 MG/ML 1ML SYG IVP PRN (20:30)
[2019-12-09] MEDS ORDERED: SODIUM CHLORIDE 0.9% 500ML 500 ML IV ONE (23:28)
[2019-12-10] VITALS (23 sets, daily range): BP systolic 103–171; BP diastolic 41–81
[2019-12-10] MEDS: MORPHINE SULFATE 4 MG/1ML SYG IV PRN ×2 (00:10→03:55)
[2019-12-10] MEDS: POTASSIUM CHLORIDE 20MEQ/100ML 100 ML IV PRN ×5 (00:26→16:02)
[2019-12-10] MEDS: DEXTROSE 10%-WATER 1,000 ML IV SCH (00:45)
[2019-12-10] MEDS: ZOSYN 3.375GM+NS 50ML 50 ML IV SCH ×3 (01:31→18:40)
[2019-12-10 04:11] LABS: BASOPHILS % (AUTO) 0.7 % (0.0-5.0); EOSINOPHILS % (AUTO) 2.5 % (0.0-8.0); HEMATOCRIT 25.8 % (42-54); LYMPHOCYTES % (AUTO) 23.6 % (21.0-51.0); MEAN CORPUSCULAR HEMOGLOBIN 28.1 pg (27.0-33.0); MEAN CORPUSCULAR HGB CONC 32.9 g/dL (32.0-36.0); MEAN CORPUSCULAR VOLUME 85.1 fL (79-99); MONOCYTES % (AUTO) 8.8 % (3.0-13.0); NEUTROPHILS % (AUTO) 63.5 % (40.0-77.0); NUCLEATED RED BLOOD CELLS 0.4 % (0.0-0.19); PLATELET COUNT (AUTO) 395 K/uL (130-400); RED BLOOD CELL COUNT(AUTO) 3.03 MIL/uL (4.50-6.20); RED CELL DISTRIBUTION WIDTH 13.4 % (11.0-15.5); WHITE BLOOD COUNT (AUTO) 12.7 K/uL (4.8-10.8)
[2019-12-10 04:27] LABS: ALBUMIN 2.5 g/dL (3.5-5.0); BILIRUBIN,TOTAL 0.6 mg/dL (0.2-1.0); CREATININE 0.9 mg/dL (0.5-1.5); MAGNESIUM 1.6 mg/dL (1.80-2.40); TOTAL PROTEIN, SERUM 7.2 g/dL (6.0-8.3)
[2019-12-10 04:31] LABS: B-TYPE NATRIURETIC PEPTIDE 530 pg/mL (0-100)
[2019-12-10] MEDS: LEVETIRACETAM 1,500 MG in SODIUM CHLORIDE 0.9% 100 ML IV SCH ×2 (05:54→18:40)
[2019-12-10] MEDS: MAGNESIUM 2GM PREMIX 50ML 50 ML IV SCH (06:40)
[2019-12-10] MEDS ORDERED: SODIUM CHLORIDE 0.9% IV SCH (07:00)
[2019-12-10] MEDS ORDERED: DEXMEDETOMIDINE HCL IV SCH (07:00)
[2019-12-10] MEDS ORDERED: HALOPERIDOL LACTATE 5 MG/ML VIAL ONE (08:02)
[2019-12-10] MEDS ORDERED: LORAZEPAM 2 MG/ML 1 ML VIAL ONE (08:03)
[2019-12-10 08:45] LABS: ABG BASE EXCESS -0.4 mmol/L (-2.0-3.0); ABG HCO3 22.3 mmol/L (21.0-28.0); ABG OXYGEN SATURATION 94.9 % (95.0-99.0); ABG PCO2 31 mmHg (35-48)
[2019-12-10] MEDS: LACOSAMIDE 200 MG/20 ML VIAL IV SCH ×2 (09:42→20:35)
[2019-12-10] MEDS: ENOXAPARIN SODIUM 40 MG/0.4 ML SYRINGE SQ SCH (09:44)
[2019-12-10] MEDS: FUROSEMIDE 10 MG/ML 2ML VIAL IV SCH ×2 (09:44→20:35)
[2019-12-10] MEDS: METOPROLOL TARTRATE 50 MG TAB NG SCH ×2 (09:44→21:00)
[2019-12-10] MEDS: FAMOTIDINE/PF 20 MG/2 ML VIAL IV SCH ×2 (09:45→20:11)
[2019-12-10] MEDS: ACETAMINOPHEN 650 MG SUPPOSITORY RC PRN (10:08)
[2019-12-10] MEDS ORDERED: BISACODYL 10 MG SUPP.RECT RC SCH (10:30)
[2019-12-10] MEDS: LORAZEPAM 2 MG/ML 1 ML VIAL IVP PRN ×3 (12:25→20:10)
[2019-12-10] MEDS ORDERED: VANCOMYCIN PROTOCOL PER PHARMACY IV SCH (12:45)
[2019-12-10] MEDS ORDERED: VANCOMYCIN 2 GM in SODIUM CHLORIDE 0.9% 500ML 500 ML IV ONE (13:15)
[2019-12-10] MEDS: INSULIN REGULAR, HUMAN 3ML 100 UNIT in SODIUM CHLORIDE 0.9% 99 ML IV SCH ×2 (14:05)
[2019-12-10] MEDS: HALOPERIDOL LACTATE 5 MG/ML VIAL IV PRN ×2 (18:48→22:48)
[2019-12-10] MEDS: CHLORDIAZEPOXIDE HCL 25 MG CAP PO SCH (20:11)
[2019-12-11] VITALS (24 sets, daily range): BP systolic 102–182; BP diastolic 49–83
[2019-12-11] MEDS: LORAZEPAM 2 MG/ML 1 ML VIAL IVP PRN ×4 (01:09→22:18)
[2019-12-11] MEDS: POTASSIUM CHLORIDE 20MEQ/100ML 100 ML IV PRN (01:11)
[2019-12-11] MEDS: VANCOMYCIN 1GM+NS 250ML 250 ML IV SCH ×2 (01:11→12:05)
[2019-12-11] MEDS: ZOSYN 3.375GM+NS 50ML 50 ML IV SCH ×3 (01:52→17:28)
[2019-12-11] MEDS: DEXTROSE 10%-WATER 1,000 ML IV SCH (04:23)
[2019-12-11] MEDS: DEXMEDETOMIDINE HCL 400 MCG in SODIUM CHLORIDE 0.9% 100 ML IV SCH ×3 (04:23→11:24)
[2019-12-11 04:50] LABS: BASOPHILS % (AUTO) 0.7 % (0.0-5.0); EOSINOPHILS % (AUTO) 7.5 % (0.0-8.0); HEMATOCRIT 25.5 % (42-54); LYMPHOCYTES % (AUTO) 17.5 % (21.0-51.0); MEAN CORPUSCULAR HEMOGLOBIN 28.2 pg (27.0-33.0); MEAN CORPUSCULAR HGB CONC 32.9 g/dL (32.0-36.0); MEAN CORPUSCULAR VOLUME 85.6 fL (79-99); NEUTROPHILS % (AUTO) 66.1 % (40.0-77.0); NUCLEATED RED BLOOD CELLS 0.2 % (0.0-0.19); PLATELET COUNT (AUTO) 413 K/uL (130-400); RED BLOOD CELL COUNT(AUTO) 2.98 MIL/uL (4.50-6.20); RED CELL DISTRIBUTION WIDTH 13.5 % (11.0-15.5); WHITE BLOOD COUNT (AUTO) 11.9 K/uL (4.8-10.8)
[2019-12-11 05:02] LABS: ALBUMIN 2.4 g/dL (3.5-5.0); BILIRUBIN,TOTAL 0.6 mg/dL (0.2-1.0); CREATININE 1.1 mg/dL (0.5-1.5); POTASSIUM 3.5 mmol/L (3.5-5.1); TOTAL PROTEIN, SERUM 7.1 g/dL (6.0-8.3)
[2019-12-11 05:12] LABS: B-TYPE NATRIURETIC PEPTIDE 264 pg/mL (0-100)
[2019-12-11] MEDS: HALOPERIDOL LACTATE 5 MG/ML VIAL IV PRN ×3 (05:52→23:44)
[2019-12-11] MEDS: LEVETIRACETAM 1,500 MG in SODIUM CHLORIDE 0.9% 100 ML IV SCH ×2 (06:36→17:30)
[2019-12-11 07:32] LABS: ABG BASE EXCESS -1.8 mmol/L (-2.0-3.0); ABG HCO3 22.2 mmol/L (21.0-28.0); ABG OXYGEN SATURATION 96.6 % (95.0-99.0); ABG PCO2 36 mmHg (35-48)
--- NOTE | 2019-12-11 07:35 | NUR ---
Dr Mckeon at bedside, made aware about latest ABG's, new orders given.
[2019-12-11] MEDS: LEVOFLOXACIN 750 MG/D5W 150 ML 150 ML IV SCH (07:41)
[2019-12-11] MEDS: FAMOTIDINE/PF 20 MG/2 ML VIAL IV SCH ×2 (07:42→21:19)
[2019-12-11] MEDS: METOPROLOL TARTRATE 50 MG TAB NG SCH ×2 (07:42→21:19)
[2019-12-11] MEDS: CHLORDIAZEPOXIDE HCL 25 MG CAP PO SCH ×3 (07:42→21:19)
[2019-12-11] MEDS: ENOXAPARIN SODIUM 40 MG/0.4 ML SYRINGE SQ SCH (08:03)
[2019-12-11] MEDS: LACOSAMIDE 200 MG/20 ML VIAL IV SCH ×2 (08:03→21:29)
[2019-12-11] MEDS: FUROSEMIDE 10 MG/ML 2ML VIAL IV SCH ×2 (08:32→21:19)
[2019-12-11] MEDS ORDERED: CHLORDIAZEPOXIDE HCL 25 MG CAP PO SCH (08:36)
[2019-12-11] MEDS ORDERED: PHARMACY COMMUNICATION MISC SCH (10:45)
[2019-12-11] MEDS ORDERED: SODIUM CHLORIDE 0.9% IV SCH (12:00)
[2019-12-11] MEDS ORDERED: DEXMEDETOMIDINE HCL IV SCH (12:00)
--- NOTE | 2019-12-11 13:40 | NUR ---
RD NOTIFICATION - TPN Recommend initiate Clinimix 5/15% @75mls/hr. Recommend 20% Intralipids MWF schedule. Recommend Weekly Lipid lab draw Recommendations faxed to 2D, RN notified. ANDIE NOTE: Pt admitted with Neoplasm of Right Adrenal Gland. NPO X 5 days. S/p pheochromocytoma excision. Self-extubated X 2 days, NRB, AMS. Pending CT. KUB revealed Ileus s/p procedure. NGT for suction. Possible resolution of Ileus as per MD note. Pending Surgery follow up, feedings previously not recommended. RD to continue to monitor Pt daily weight and TPN tolerance. Please notify as additional nutrition concerns arise. Thank you. Addendum: 12/11/19 at [address] Amended: Links added.
[2019-12-11] MEDS: CLINIMIX E 5%-15% 2,000 ML IV SCH (14:15)
[2019-12-11] MEDS: FAT EMULSIONS 20% 250ML 250 ML IV SCH (14:16)
[2019-12-11] MEDS: MORPHINE SULFATE 4 MG/1ML SYG IV PRN (14:43)
[2019-12-11] MEDS: HYDRALAZINE HCL 20 MG/ML VIAL IV PRN (16:24)
[2019-12-11] MEDS: IPRATROPIUM/ALBUTEROL SULFATE 3 ML SOLUTION IH SCH ×2 (19:03→23:21)
[2019-12-11] MEDS: ACETAMINOPHEN 650 MG SUPPOSITORY RC PRN (19:13)
[2019-12-11] MEDS: INSULIN REGULAR, HUMAN 3ML 100 UNIT in SODIUM CHLORIDE 0.9% 99 ML IV SCH ×2 (20:12)
[2019-12-12] VITALS (24 sets, daily range): BP systolic 119–180; BP diastolic 42–64
[2019-12-12] MEDS: VANCOMYCIN 1GM+NS 250ML 250 ML IV SCH ×2 (01:15→13:21)
[2019-12-12] MEDS: ZOSYN 3.375GM+NS 50ML 50 ML IV SCH ×3 (01:15→17:47)
[2019-12-12 04:39] LABS: BASOPHILS % (AUTO) 0.6 % (0.0-5.0); EOSINOPHILS % (AUTO) 4.5 % (0.0-8.0); HEMATOCRIT 25.5 % (42-54); LYMPHOCYTES % (AUTO) 18.2 % (21.0-51.0); MEAN CORPUSCULAR HEMOGLOBIN 28.2 pg (27.0-33.0); MEAN CORPUSCULAR HGB CONC 32.9 g/dL (32.0-36.0); MEAN CORPUSCULAR VOLUME 85.6 fL (79-99); MONOCYTES % (AUTO) 9.9 % (3.0-13.0); NEUTROPHILS % (AUTO) 65.1 % (40.0-77.0); NUCLEATED RED BLOOD CELLS 0.6 % (0.0-0.19); PLATELET COUNT (AUTO) 472 K/uL (130-400); RED BLOOD CELL COUNT(AUTO) 2.98 MIL/uL (4.50-6.20); RED CELL DISTRIBUTION WIDTH 13.4 % (11.0-15.5); WHITE BLOOD COUNT (AUTO) 9.4 K/uL (4.8-10.8)
[2019-12-12] MEDS: DEXMEDETOMIDINE HCL 400 MCG in SODIUM CHLORIDE 0.9% 100 ML IV SCH ×6 (04:45→20:02)
[2019-12-12 04:55] LABS: ALBUMIN 2.3 g/dL (3.5-5.0); BILIRUBIN,TOTAL 0.5 mg/dL (0.2-1.0); CREATININE 1.5 mg/dL (0.5-1.5); MAGNESIUM 2.3 mg/dL (1.80-2.40); PHOSPHORUS 3.2 mg/dL (2.5-4.9); TOTAL PROTEIN, SERUM 7.1 g/dL (6.0-8.3)
[2019-12-12] MEDS: POTASSIUM CHLORIDE 20MEQ/100ML 100 ML IV PRN ×3 (05:11→13:31)
[2019-12-12 05:21] LABS: B-TYPE NATRIURETIC PEPTIDE 258 pg/mL (0-100)
[2019-12-12] MEDS: IPRATROPIUM/ALBUTEROL SULFATE 3 ML SOLUTION IH SCH ×4 (06:45→23:49)
[2019-12-12] MEDS: LEVETIRACETAM 1,500 MG in SODIUM CHLORIDE 0.9% 100 ML IV SCH ×2 (06:49→17:18)
[2019-12-12] MEDS: LEVOTHYROXINE 100 MCG VIAL IV SCH (06:49)
[2019-12-12] MEDS: FAMOTIDINE/PF 20 MG/2 ML VIAL IV SCH ×2 (08:05→20:02)
[2019-12-12] MEDS: LEVOFLOXACIN 750 MG/D5W 150 ML 150 ML IV SCH (08:06)
[2019-12-12] MEDS: CHLORDIAZEPOXIDE HCL 25 MG CAP PO SCH ×3 (08:19→20:02)
[2019-12-12] MEDS: METOPROLOL TARTRATE 50 MG TAB NG SCH (08:20)
[2019-12-12] MEDS: ENOXAPARIN SODIUM 40 MG/0.4 ML SYRINGE SQ SCH (08:21)
[2019-12-12] MEDS: FUROSEMIDE 10 MG/ML 2ML VIAL IV SCH ×2 (08:22→20:03)
[2019-12-12] MEDS: LACOSAMIDE 200 MG/20 ML VIAL IV SCH ×2 (09:57→20:02)
--- NOTE | 2019-12-12 10:30 | NUR ---
nasogastric tube insertion inserted a 14french nasogastric tube to right nare wtih no resistance. auscultation verified with clarice rockwell rn via auscultation and aspiration of gastric contents Addendum: 12/12/19 at 1441 by SAM WINCHESTER RN RN Amended: Links added.
[2019-12-12] MEDS: INSULIN REGULAR, HUMAN 3ML 100 UNIT in SODIUM CHLORIDE 0.9% 99 ML IV SCH ×2 (10:53)
[2019-12-12 12:24] LABS: MAGNESIUM 2.1 mg/dL (1.80-2.40); POTASSIUM 3.2 mmol/L (3.5-5.1)
[2019-12-12] MEDS: CLINIMIX E 5%-15% 2,000 ML IV SCH (13:48)
[2019-12-12] MEDS ORDERED: LABETALOL 20 MG/4 ML DISP.SYRIN IV PRN (15:00)
[2019-12-12] MEDS ORDERED: POTASSIUM CHLORIDE 10% ELIXIR 20 MEQ/15 ML UDCUP PO PRN (16:00)
[2019-12-12] MEDS: POTASSIUM CHLORIDE 10% ELIXIR 20 MEQ/15 ML UDCUP PO PRN ×3 (16:00→18:30)
[2019-12-12] MEDS: LORAZEPAM 2 MG/ML 1 ML VIAL IVP PRN (21:58)
[2019-12-13] VITALS (23 sets, daily range): BP systolic 116–152; BP diastolic 40–86
[2019-12-13] MEDS: VANCOMYCIN 1GM+NS 250ML 250 ML IV SCH ×2 (00:28→12:46)
[2019-12-13] MEDS: ZOSYN 3.375GM+NS 50ML 50 ML IV SCH ×3 (01:26→17:38)
[2019-12-13 05:07] LABS: BASOPHILS % (AUTO) 0.6 % (0.0-5.0); EOSINOPHILS % (AUTO) 4.9 % (0.0-8.0); HEMATOCRIT 26.3 % (42-54); LYMPHOCYTES % (AUTO) 19.8 % (21.0-51.0); MEAN CORPUSCULAR HEMOGLOBIN 28.1 pg (27.0-33.0); MEAN CORPUSCULAR HGB CONC 31.9 g/dL (32.0-36.0); MONOCYTES % (AUTO) 11.3 % (3.0-13.0); NEUTROPHILS % (AUTO) 62.4 % (40.0-77.0); PLATELET COUNT (AUTO) 483 K/uL (130-400); RED BLOOD CELL COUNT(AUTO) 2.99 MIL/uL (4.50-6.20); RED CELL DISTRIBUTION WIDTH 13.9 % (11.0-15.5); WHITE BLOOD COUNT (AUTO) 9.4 K/uL (4.8-10.8)
[2019-12-13 05:30] LABS: ALBUMIN 2.4 g/dL (3.5-5.0); BILIRUBIN,TOTAL 0.4 mg/dL (0.2-1.0); CREATININE 1.3 mg/dL (0.5-1.5); MAGNESIUM 2.3 mg/dL (1.80-2.40); POTASSIUM 3.2 mmol/L (3.5-5.1); TOTAL PROTEIN, SERUM 7.3 g/dL (6.0-8.3)
[2019-12-13] MEDS: LEVOTHYROXINE 100 MCG VIAL IV SCH (05:40)
[2019-12-13] MEDS: LEVETIRACETAM 1,500 MG in SODIUM CHLORIDE 0.9% 100 ML IV SCH ×2 (05:40→17:38)
[2019-12-13] MEDS: IPRATROPIUM/ALBUTEROL SULFATE 3 ML SOLUTION IH SCH ×4 (06:15→23:47)
[2019-12-13] MEDS: POTASSIUM CHLORIDE 10% ELIXIR 20 MEQ/15 ML UDCUP PO PRN ×3 (07:32→10:51)
[2019-12-13] MEDS: LEVOFLOXACIN 750 MG/D5W 150 ML 150 ML IV SCH (08:05)
[2019-12-13] MEDS: FAMOTIDINE/PF 20 MG/2 ML VIAL IV SCH ×2 (08:05→20:01)
[2019-12-13] MEDS: FUROSEMIDE 10 MG/ML 2ML VIAL IV SCH ×2 (08:11→20:02)
[2019-12-13] MEDS: CHLORDIAZEPOXIDE HCL 25 MG CAP PO SCH ×3 (08:12→20:02)
[2019-12-13] MEDS: ENOXAPARIN SODIUM 40 MG/0.4 ML SYRINGE SQ SCH (08:13)
[2019-12-13] MEDS: DEXMEDETOMIDINE HCL 400 MCG in SODIUM CHLORIDE 0.9% 100 ML IV SCH ×5 (08:19→23:28)
[2019-12-13] MEDS: INSULIN REGULAR, HUMAN 3ML 100 UNIT in SODIUM CHLORIDE 0.9% 99 ML IV SCH ×4 (08:21→16:04)
[2019-12-13] MEDS: LACOSAMIDE 200 MG/20 ML VIAL IV SCH ×2 (09:13→20:02)
[2019-12-13] MEDS ORDERED: CLINIMIX E 5%-15% 2,000 ML IV SCH (10:00)
--- NOTE | 2019-12-13 11:05 | NUR ---
ANDIE FOLLOW UP Pt with NPO diet order in place, receiving TPN, Clinimix 5/15 @75mls/hr. via PICC line. KCl, Dextrose, Piperacillin, Insulin, Lovenox, Lasix, Vanco, Synthroid medications in place. Elevated BG levels with Insulin in place. Additional monitored labs: Na 1489, K 3.2, BG 329, Alb 2.4, BNP 258. ANDIE Concern for elevated BG levels; Recommend to consider decreasing TPN rate to 65mls/hr as medically feasible. Recommend to monitor hydration, nutrition labs, and I/O. Addendum: 12/14/19 at [address] RD Amended: Links added.
--- NOTE | 2019-12-13 11:15 | NUR ---
CONTINUOUS INSULIN DRIP NOTIFIED DR. Hallie SANTO CONCERNING PERSISTENTLY ELEVATED GLUCOSE LEVELS AND PATIENT RECEIVING ALGORITHM 4 OF THE INSULIN DRIP AND INQUIRE IF FURTHER ORDERS/RECOMMENDATIONS COULD BE MADE; WILL CONTINUE TO ASSESS/MONITOR AND AWAIT ANY FURTHER ORDERS
[2019-12-13] MEDS: LORAZEPAM 2 MG/ML 1 ML VIAL IVP PRN ×2 (12:57→19:50)
[2019-12-13] MEDS ORDERED: 1/2 NORMAL SALINE 1,000 ML IV SCH (15:00)
[2019-12-13] MEDS: FAT EMULSIONS 20% 250ML 250 ML IV SCH (15:58)
[2019-12-14] VITALS (27 sets, daily range): BP systolic 118–163; BP diastolic 43–75
[2019-12-14] MEDS: ZOSYN 3.375GM+NS 50ML 50 ML IV SCH ×3 (01:04→18:12)
[2019-12-14] MEDS: VANCOMYCIN 1GM+NS 250ML 250 ML IV SCH ×2 (01:04→12:51)
[2019-12-14] MEDS: INSULIN REGULAR, HUMAN 3ML 100 UNIT in SODIUM CHLORIDE 0.9% 99 ML IV SCH ×2 (03:31)
[2019-12-14] MEDS: DEXMEDETOMIDINE HCL 400 MCG in SODIUM CHLORIDE 0.9% 100 ML IV SCH ×7 (03:31→23:06)
[2019-12-14 03:37] LABS: BASOPHILS % (AUTO) 0.6 % (0.0-5.0); EOSINOPHILS % (AUTO) 8.8 % (0.0-8.0); HEMATOCRIT 27.7 % (42-54); LYMPHOCYTES % (AUTO) 16.6 % (21.0-51.0); MEAN CORPUSCULAR HEMOGLOBIN 27.8 pg (27.0-33.0); MEAN CORPUSCULAR HGB CONC 31.8 g/dL (32.0-36.0); MEAN CORPUSCULAR VOLUME 87.4 fL (79-99); MONOCYTES % (AUTO) 6.9 % (3.0-13.0); NEUTROPHILS % (AUTO) 66.3 % (40.0-77.0); PLATELET COUNT (AUTO) 486 K/uL (130-400); RED BLOOD CELL COUNT(AUTO) 3.17 MIL/uL (4.50-6.20); RED CELL DISTRIBUTION WIDTH 14.1 % (11.0-15.5); WHITE BLOOD COUNT (AUTO) 10.4 K/uL (4.8-10.8)
[2019-12-14 03:53] LABS: ALBUMIN 2.3 g/dL (3.5-5.0); BILIRUBIN,TOTAL 0.3 mg/dL (0.2-1.0); CREATININE 1.3 mg/dL (0.5-1.5); MAGNESIUM 2.6 mg/dL (1.80-2.40); PHOSPHORUS 3.2 mg/dL (2.5-4.9); POTASSIUM 3.6 mmol/L (3.5-5.1); TOTAL PROTEIN, SERUM 7.1 g/dL (6.0-8.3)
[2019-12-14] MEDS: LEVETIRACETAM 1,500 MG in SODIUM CHLORIDE 0.9% 100 ML IV SCH ×2 (05:58→17:55)
[2019-12-14] MEDS: IPRATROPIUM/ALBUTEROL SULFATE 3 ML SOLUTION IH SCH ×3 (06:20→18:59)
[2019-12-14] MEDS: LEVOTHYROXINE 100 MCG VIAL IV SCH (06:30)
[2019-12-14] MEDS: POTASSIUM CHLORIDE 10% ELIXIR 20 MEQ/15 ML UDCUP PO PRN ×2 (07:43→12:50)
[2019-12-14] MEDS: FAMOTIDINE/PF 20 MG/2 ML VIAL IV SCH ×2 (07:59→20:09)
[2019-12-14] MEDS: FUROSEMIDE 10 MG/ML 2ML VIAL IV SCH ×2 (07:59→20:09)
[2019-12-14] MEDS: CHLORDIAZEPOXIDE HCL 25 MG CAP PO SCH ×3 (08:00→20:09)
[2019-12-14] MEDS: ENOXAPARIN SODIUM 40 MG/0.4 ML SYRINGE SQ SCH (08:03)
[2019-12-14] MEDS: LACOSAMIDE 200 MG/20 ML VIAL IV SCH ×2 (09:07→20:09)
[2019-12-14] MEDS: LEVOFLOXACIN 750 MG/D5W 150 ML 150 ML IV SCH (09:08)
--- NOTE | 2019-12-14 14:20 | NUR ---
RD FOLLOW UP/UPDATE Pt continues with TPN @75mls/hr. Receiving 90gm Protein, 1278kcal. Intralipid MWF schedule. Meds: Lasix, KCl, Insulin, Piperacillin, vanco Labs: BG 298, BUN 19, Mg 2.60, Alb 2.3. Resolved ileus. NGT. PICC Line. RD to continue to monitor.
[2019-12-14] MEDS ORDERED: CLINIMIX E 5%-15% 2,000 ML IV SCH (18:15)
[2019-12-14] MEDS: QUETIAPINE FUMARATE 25 MG TAB PO SCH (20:08)
[2019-12-14] MEDS: LORAZEPAM 2 MG/ML 1 ML VIAL IVP PRN (21:33)
[2019-12-15] VITALS (23 sets, daily range): BP systolic 107–157; BP diastolic 41–88
[2019-12-15] MEDS: IPRATROPIUM/ALBUTEROL SULFATE 3 ML SOLUTION IH SCH ×4 (00:03→18:42)
[2019-12-15] MEDS: INSULIN REGULAR, HUMAN 3ML 100 UNIT in SODIUM CHLORIDE 0.9% 99 ML IV SCH ×4 (00:24→09:36)
[2019-12-15] MEDS: DEXMEDETOMIDINE HCL 400 MCG in SODIUM CHLORIDE 0.9% 100 ML IV SCH ×3 (00:25→09:35)
[2019-12-15] MEDS: LORAZEPAM 2 MG/ML 1 ML VIAL IVP PRN ×4 (01:05→20:28)
[2019-12-15] MEDS: VANCOMYCIN 1GM+NS 250ML 250 ML IV SCH ×3 (01:07→13:27)
[2019-12-15] MEDS: ZOSYN 3.375GM+NS 50ML 50 ML IV SCH ×3 (02:00→17:40)
[2019-12-15 05:02] LABS: BASOPHILS % (AUTO) 0.7 % (0.0-5.0); EOSINOPHILS % (AUTO) 8.4 % (0.0-8.0); LYMPHOCYTES % (AUTO) 20.7 % (21.0-51.0); MEAN CORPUSCULAR HEMOGLOBIN 28.1 pg (27.0-33.0); MEAN CORPUSCULAR HGB CONC 32.1 g/dL (32.0-36.0); MEAN CORPUSCULAR VOLUME 87.6 fL (79-99); MONOCYTES % (AUTO) 9.3 % (3.0-13.0); NEUTROPHILS % (AUTO) 60.2 % (40.0-77.0); PLATELET COUNT (AUTO) 518 K/uL (130-400); RED BLOOD CELL COUNT(AUTO) 3.31 MIL/uL (4.50-6.20); RED CELL DISTRIBUTION WIDTH 14.1 % (11.0-15.5); WHITE BLOOD COUNT (AUTO) 8.9 K/uL (4.8-10.8)
[2019-12-15] MEDS: LEVETIRACETAM 1,500 MG in SODIUM CHLORIDE 0.9% 100 ML IV SCH ×2 (05:26→17:40)
[2019-12-15] MEDS: LEVOTHYROXINE 100 MCG VIAL IV SCH (05:27)
[2019-12-15 05:45] LABS: ALBUMIN 2.4 g/dL (3.5-5.0); BILIRUBIN,TOTAL 0.3 mg/dL (0.2-1.0); CREATININE 1.3 mg/dL (0.5-1.5); MAGNESIUM 2.1 mg/dL (1.80-2.40); PHOSPHORUS 4.6 mg/dL (2.5-4.9); POTASSIUM 3.4 mmol/L (3.5-5.1); TOTAL PROTEIN, SERUM 7.3 g/dL (6.0-8.3)
[2019-12-15] MEDS: CHLORDIAZEPOXIDE HCL 25 MG CAP PO SCH ×3 (08:17→20:06)
[2019-12-15] MEDS: POTASSIUM CHLORIDE 10% ELIXIR 20 MEQ/15 ML UDCUP PO PRN ×3 (08:17→16:04)
[2019-12-15] MEDS: FAMOTIDINE/PF 20 MG/2 ML VIAL IV SCH ×2 (08:18→20:06)
[2019-12-15] MEDS: QUETIAPINE FUMARATE 25 MG TAB PO SCH ×3 (08:18→20:06)
[2019-12-15] MEDS: FUROSEMIDE 10 MG/ML 2ML VIAL IV SCH ×2 (08:18→20:06)
[2019-12-15] MEDS: LEVOFLOXACIN 750 MG/D5W 150 ML 150 ML IV SCH (08:19)
[2019-12-15] MEDS: ENOXAPARIN SODIUM 40 MG/0.4 ML SYRINGE SQ SCH (08:19)
[2019-12-15] MEDS: LACOSAMIDE 200 MG/20 ML VIAL IV SCH ×2 (09:55→20:12)
--- NOTE | 2019-12-15 12:36 | NUR ---
Right eyelid droop Right eyelid droop noted. Lottie Cbaral ODD JOBS DAY WORKER notified. Orders received.
[2019-12-15] MEDS: FAT EMULSIONS 20% 250ML 250 ML IV SCH (13:27)
--- NOTE | 2019-12-15 15:40 | NUR ---
DYSPHAGIA EVAL COMPLETED. -S/S OF ASPIRATION. RECOMMEND MECHANICAL SOFT, THIN LIQUIDS; PILLS WHOLE WITH LIQUIDS. BRANCH LENDING MANAGER COORDINATED WITH NURSE MERCEDES. AT BEDSIDE AT THE TIME OF THE EVALUATION. ALL QUESTIONS ANSWERED AT THIS TIME. Addendum: 12/15/19 at 1542 by OLGA DURON, [facility] Amended: Links added.
[2019-12-15] MEDS: POTASSIUM CHLORIDE 20MEQ/100ML 100 ML IV PRN (16:04)
[2019-12-15] MEDS ORDERED: CLINIMIX E 5%-15% 2,000 ML IV SCH (19:45)
[2019-12-16] VITALS (14 sets, daily range): BP systolic 118–184; BP diastolic 50–95
[2019-12-16] MEDS: IPRATROPIUM/ALBUTEROL SULFATE 3 ML SOLUTION IH SCH ×5 (00:31→23:27)
[2019-12-16] MEDS: VANCOMYCIN 1GM+NS 250ML 250 ML IV SCH ×2 (00:56→12:46)
[2019-12-16] MEDS: LORAZEPAM 2 MG/ML 1 ML VIAL IVP PRN ×9 (00:56→22:31)
[2019-12-16] MEDS: MORPHINE SULFATE 2 MG/ML 1ML SYG IVP PRN ×2 (01:32→20:39)
[2019-12-16] MEDS: ZOSYN 3.375GM+NS 50ML 50 ML IV SCH ×3 (01:38→17:12)
[2019-12-16 03:42] LABS: BASOPHILS % (AUTO) 0.9 % (0.0-5.0); EOSINOPHILS % (AUTO) 3.1 % (0.0-8.0); HEMATOCRIT 28.5 % (42-54); MEAN CORPUSCULAR HEMOGLOBIN 27.9 pg (27.0-33.0); MEAN CORPUSCULAR HGB CONC 32.3 g/dL (32.0-36.0); MEAN CORPUSCULAR VOLUME 86.4 fL (79-99); MONOCYTES % (AUTO) 7.4 % (3.0-13.0); NEUTROPHILS % (AUTO) 70.7 % (40.0-77.0); PLATELET COUNT (AUTO) 587 K/uL (130-400); RED CELL DISTRIBUTION WIDTH 14.2 % (11.0-15.5); WHITE BLOOD COUNT (AUTO) 10.6 K/uL (4.8-10.8)
[2019-12-16 03:58] LABS: ALBUMIN 2.6 g/dL (3.5-5.0); BILIRUBIN,TOTAL 0.5 mg/dL (0.2-1.0); CREATININE 1.6 mg/dL (0.5-1.5); MAGNESIUM 1.7 mg/dL (1.80-2.40); POTASSIUM 3.4 mmol/L (3.5-5.1); TOTAL PROTEIN, SERUM 7.6 g/dL (6.0-8.3)
[2019-12-16] MEDS: LEVOTHYROXINE 100 MCG VIAL IV SCH (05:43)
[2019-12-16] MEDS: LEVETIRACETAM 1,500 MG in SODIUM CHLORIDE 0.9% 100 ML IV SCH ×2 (05:44→17:12)
[2019-12-16] MEDS: FAMOTIDINE/PF 20 MG/2 ML VIAL IV SCH ×2 (07:34→19:50)
[2019-12-16] MEDS: ACETAMINOPHEN 650 MG SUPPOSITORY RC PRN ×3 (07:34→23:18)
[2019-12-16] MEDS: POTASSIUM CHLORIDE 20MEQ/100ML 100 ML IV PRN (07:35)
[2019-12-16] MEDS: LEVOFLOXACIN 750 MG/D5W 150 ML 150 ML IV SCH (07:36)
[2019-12-16] MEDS: ENOXAPARIN SODIUM 40 MG/0.4 ML SYRINGE SQ SCH (07:36)
[2019-12-16] MEDS: CHLORDIAZEPOXIDE HCL 25 MG CAP PO SCH ×3 (08:11→19:50)
[2019-12-16] MEDS: MAGNESIUM 2GM PREMIX 50ML 50 ML IV SCH (08:11)
[2019-12-16] MEDS: QUETIAPINE FUMARATE 25 MG TAB PO SCH ×3 (08:11→19:50)
[2019-12-16] MEDS: FUROSEMIDE 10 MG/ML 2ML VIAL IV SCH (08:11)
[2019-12-16] MEDS: LACOSAMIDE 200 MG/20 ML VIAL IV SCH ×2 (09:28→20:27)
[2019-12-16 11:19] LABS: INR 1.03 (0.85-1.15); PROTHROMBIN TIME 11.1 SEC (9.6-11.6)
[2019-12-16] MEDS: INSULIN HUMULIN R 100 UNIT/ML 3ML SQ SCH ×5 (11:30→20:57)
[2019-12-16] MEDS ORDERED: INSULIN GLARGINE 100 UNITS/ML 10 ML VIAL SQ SCH (11:30)
[2019-12-16] MEDS: METOPROLOL TARTRATE 50 MG TAB PO SCH (19:50)
[2019-12-16] MEDS: INSULIN GLARGINE 100 UNITS/ML 10 ML VIAL SQ SCH (20:56)
[2019-12-17] VITALS (21 sets, daily range): BP systolic 116–178; BP diastolic 40–76
[2019-12-17] MEDS: VANCOMYCIN 1GM+NS 250ML 250 ML IV SCH ×2 (00:14→14:40)
[2019-12-17] MEDS: ZOSYN 3.375GM+NS 50ML 50 ML IV SCH ×3 (02:04→17:31)
[2019-12-17 03:55] LABS: EOSINOPHILS % (AUTO) 2.2 % (0.0-8.0); HEMATOCRIT 27.5 % (42-54); LYMPHOCYTES % (AUTO) 20.8 % (21.0-51.0); MEAN CORPUSCULAR HEMOGLOBIN 27.7 pg (27.0-33.0); MEAN CORPUSCULAR HGB CONC 31.3 g/dL (32.0-36.0); MEAN CORPUSCULAR VOLUME 88.7 fL (79-99); NEUTROPHILS % (AUTO) 64.4 % (40.0-77.0); PLATELET COUNT (AUTO) 532 K/uL (130-400); RED CELL DISTRIBUTION WIDTH 14.5 % (11.0-15.5)
[2019-12-17 04:03] LABS: CREATININE 1.8 mg/dL (0.5-1.5); MAGNESIUM 2.3 mg/dL (1.80-2.40); POTASSIUM 4.5 mmol/L (3.5-5.1)
[2019-12-17] MEDS: IPRATROPIUM/ALBUTEROL SULFATE 3 ML SOLUTION IH SCH ×3 (06:19→19:22)
[2019-12-17] MEDS: LEVOTHYROXINE 150 MCG TABLET PO SCH (06:36)
[2019-12-17] MEDS: LEVETIRACETAM 1,500 MG in SODIUM CHLORIDE 0.9% 100 ML IV SCH ×2 (06:36→17:32)
[2019-12-17] MEDS: INSULIN HUMULIN R 100 UNIT/ML 3ML SQ SCH ×7 (07:02→20:24)
[2019-12-17] MEDS: INSULIN GLARGINE 100 UNITS/ML 10 ML VIAL SQ SCH (07:03)
[2019-12-17] MEDS ORDERED: FLUCONAZOLE 200 MG/NS 100 ML 100 ML IV SCH (09:00)
[2019-12-17] MEDS: CHLORDIAZEPOXIDE HCL 25 MG CAP PO SCH ×3 (09:11→20:22)
[2019-12-17] MEDS: LACOSAMIDE 200 MG/20 ML VIAL IV SCH ×2 (09:11→20:22)
[2019-12-17] MEDS: METOPROLOL TARTRATE 50 MG TAB PO SCH ×2 (09:11→20:22)
[2019-12-17] MEDS: LEVOFLOXACIN 750 MG/D5W 150 ML 150 ML IV SCH (09:11)
[2019-12-17] MEDS: FAMOTIDINE/PF 20 MG/2 ML VIAL IV SCH ×2 (09:11→20:22)
[2019-12-17] MEDS: ENOXAPARIN SODIUM 40 MG/0.4 ML SYRINGE SQ SCH (09:12)
[2019-12-17] MEDS: QUETIAPINE FUMARATE 25 MG TAB PO SCH ×3 (09:12→20:22)
[2019-12-17] MEDS: LORAZEPAM 2 MG/ML 1 ML VIAL IVP PRN ×3 (09:12→17:35)
[2019-12-17] MEDS: ACETAMINOPHEN 650 MG SUPPOSITORY RC PRN (09:13)
[2019-12-17] MEDS ORDERED: SODIUM CHLORIDE 0.9% 500ML 1,000 ML IV ONE (09:14)
[2019-12-17] MEDS: MORPHINE SULFATE 2 MG/ML 1ML SYG IVP PRN (10:16)
[2019-12-17] MEDS: ACETAMINOPHEN ELIXIR 650 MG/20.3 ML UDCUP PEG PRN ×2 (11:45→15:52)
[2019-12-17] MEDS ORDERED: PHARMACY COMMUNICATION**MICAFUNGIN ORDER MISC SCH (18:00)
[2019-12-17] MEDS ORDERED: PHARMACY COMMUNICATION MISC SCH (18:45)
[2019-12-18] VITALS (24 sets, daily range): BP systolic 129–177; BP diastolic 48–77
[2019-12-18] MEDS: IPRATROPIUM/ALBUTEROL SULFATE 3 ML SOLUTION IH SCH ×4 (00:32→18:31)
[2019-12-18] MEDS: VANCOMYCIN 1GM+NS 250ML 250 ML IV SCH ×2 (00:43→11:52)
[2019-12-18] MEDS: LORAZEPAM 2 MG/ML 1 ML VIAL IVP PRN ×2 (01:17→22:29)
[2019-12-18 03:53] LABS: BASOPHILS % (AUTO) 1.1 % (0.0-5.0); EOSINOPHILS % (AUTO) 4.5 % (0.0-8.0); HEMATOCRIT 27.1 % (42-54); LYMPHOCYTES % (AUTO) 19.5 % (21.0-51.0); MEAN CORPUSCULAR HGB CONC 31.7 g/dL (32.0-36.0); MEAN CORPUSCULAR VOLUME 88.3 fL (79-99); MONOCYTES % (AUTO) 11.3 % (3.0-13.0); PLATELET COUNT (AUTO) 613 K/uL (130-400); RED BLOOD CELL COUNT(AUTO) 3.07 MIL/uL (4.50-6.20); RED CELL DISTRIBUTION WIDTH 14.8 % (11.0-15.5); WHITE BLOOD COUNT (AUTO) 10.3 K/uL (4.8-10.8)
[2019-12-18 04:02] LABS: CREATININE 1.4 mg/dL (0.5-1.5); POTASSIUM 3.6 mmol/L (3.5-5.1)
[2019-12-18] MEDS: LEVETIRACETAM 1,500 MG in SODIUM CHLORIDE 0.9% 100 ML IV SCH ×2 (05:57→17:42)
[2019-12-18] MEDS: INSULIN HUMULIN R 100 UNIT/ML 3ML SQ SCH ×6 (05:58→21:00)
[2019-12-18] MEDS: LEVOTHYROXINE 150 MCG TABLET PO SCH (05:58)
[2019-12-18] MEDS: ACETAMINOPHEN 650 MG SUPPOSITORY RC PRN (06:41)
[2019-12-18] MEDS: INSULIN GLARGINE 100 UNITS/ML 10 ML VIAL SQ SCH ×3 (07:29→21:00)
[2019-12-18] MEDS: POTASSIUM CHLORIDE 20MEQ/100ML 100 ML IV PRN (08:01)
[2019-12-18] MEDS: LEVOFLOXACIN 750 MG/D5W 150 ML 150 ML IV SCH (08:01)
[2019-12-18] MEDS: ENOXAPARIN SODIUM 40 MG/0.4 ML SYRINGE SQ SCH (08:02)
[2019-12-18] MEDS: MORPHINE SULFATE 2 MG/ML 1ML SYG IVP PRN ×2 (08:02→23:47)
[2019-12-18] MEDS: METOPROLOL TARTRATE 50 MG TAB PO SCH ×2 (08:02→22:28)
[2019-12-18] MEDS: FAMOTIDINE/PF 20 MG/2 ML VIAL IV SCH ×2 (08:02→22:28)
[2019-12-18] MEDS: LACOSAMIDE 200 MG/20 ML VIAL IV SCH ×2 (08:03→22:28)
[2019-12-18] MEDS: MICAFUNGIN 100MG+NS 100ML 100 ML IV SCH (08:04)
[2019-12-18] MEDS: QUETIAPINE FUMARATE 25 MG TAB PO SCH ×3 (08:11→22:28)
[2019-12-18] MEDS: CHLORDIAZEPOXIDE HCL 25 MG CAP PO SCH ×3 (08:11→22:28)
[2019-12-18] MEDS ORDERED: INSULIN HUMULIN R 100 UNIT/ML 3ML SQ SCH (11:55)
[2019-12-18] MEDS: ACETAMINOPHEN ELIXIR 650 MG/20.3 ML UDCUP PEG PRN (14:44)
--- NOTE | 2019-12-18 16:29 | NUR ---
RD FOLLOW UP TPN discontinued. Diet advanced to Full Liquid this AM. Pt seen by Speech Therapy, -S/S aspiration, Mechanical Soft diet order recommended once diet advanced. Monitored labs: BG 236, GFR 56, H/H 8.6/27.1. PO intake at 75%. LBM 12/17. Vanco, Lantus, Morphine, KCl medications in place. Pending possible NGT removal. Recommend continue advance diet as tolerated to 60gm CC, Mechanical Soft diet order RD to continue to monitor. Please notify as additional nutrition concerns arise. Thank you.
[2019-12-19] VITALS (20 sets, daily range): BP systolic 102–195; BP diastolic 42–74
[2019-12-19] MEDS ORDERED: HALOPERIDOL LACTATE 5 MG/ML VIAL ONE (00:06)
[2019-12-19] MEDS: IPRATROPIUM/ALBUTEROL SULFATE 3 ML SOLUTION IH SCH ×5 (00:20→23:50)
[2019-12-19] MEDS: LORAZEPAM 2 MG/ML 1 ML VIAL IVP PRN (00:20)
[2019-12-19] MEDS ORDERED: DEXMEDETOMIDINE HCL 400 MCG in SODIUM CHLORIDE 0.9% 100 ML IV SCH (00:30)
[2019-12-19] MEDS: VANCOMYCIN 1GM+NS 250ML 250 ML IV SCH ×2 (02:03→12:00)
[2019-12-19] MEDS: HALOPERIDOL LACTATE 5 MG/ML VIAL IV SCH (02:03)
[2019-12-19] MEDS ORDERED: SODIUM CHLORIDE 0.9% 200 ML IV ONE (04:43)
[2019-12-19] MEDS: LEVETIRACETAM 1,500 MG in SODIUM CHLORIDE 0.9% 100 ML IV SCH (06:18)
[2019-12-19 06:24] LABS: BASOPHILS % (AUTO) 0.8 % (0.0-5.0); EOSINOPHILS % (AUTO) 5.2 % (0.0-8.0); HEMATOCRIT 26.5 % (42-54); LYMPHOCYTES % (AUTO) 26.9 % (21.0-51.0); MEAN CORPUSCULAR HEMOGLOBIN 28.1 pg (27.0-33.0); MEAN CORPUSCULAR HGB CONC 31.7 g/dL (32.0-36.0); MEAN CORPUSCULAR VOLUME 88.6 fL (79-99); MONOCYTES % (AUTO) 10.3 % (3.0-13.0); NEUTROPHILS % (AUTO) 56.2 % (40.0-77.0); PLATELET COUNT (AUTO) 671 K/uL (130-400); RED BLOOD CELL COUNT(AUTO) 2.99 MIL/uL (4.50-6.20); RED CELL DISTRIBUTION WIDTH 14.6 % (11.0-15.5); WHITE BLOOD COUNT (AUTO) 8.3 K/uL (4.8-10.8)
[2019-12-19] MEDS: LEVOTHYROXINE 150 MCG TABLET PO SCH (06:30)
[2019-12-19] MEDS: INSULIN HUMULIN R 100 UNIT/ML 3ML SQ SCH ×7 (07:30→20:53)
[2019-12-19 08:17] LABS: CREATININE 1.3 mg/dL (0.5-1.5); POTASSIUM 3.8 mmol/L (3.5-5.1)
[2019-12-19] MEDS: LEVOFLOXACIN 750 MG/D5W 150 ML 150 ML IV SCH (09:06)
[2019-12-19] MEDS: QUETIAPINE FUMARATE 25 MG TAB PO SCH ×3 (09:07→20:48)
[2019-12-19] MEDS: CHLORDIAZEPOXIDE HCL 25 MG CAP PO SCH ×3 (09:07→20:48)
[2019-12-19] MEDS: METOPROLOL TARTRATE 50 MG TAB PO SCH ×2 (09:07→20:48)
[2019-12-19] MEDS: FAMOTIDINE/PF 20 MG/2 ML VIAL IV SCH (09:07)
[2019-12-19] MEDS: ENOXAPARIN SODIUM 40 MG/0.4 ML SYRINGE SQ SCH (09:07)
[2019-12-19] MEDS: INSULIN GLARGINE 100 UNITS/ML 10 ML VIAL SQ SCH ×2 (09:18→21:00)
[2019-12-19] MEDS: LACOSAMIDE 200 MG/20 ML VIAL IV SCH ×2 (09:41→21:03)
[2019-12-19] MEDS: MICAFUNGIN 100MG+NS 100ML 100 ML IV SCH (09:41)
[2019-12-19] MEDS: FLUCONAZOLE 400 MG/NS 200 ML 200 ML IV SCH (12:00)
--- NOTE | 2019-12-19 16:41 | NUR ---
FOLLOW-UP ON DC ORDERS LEFT MESSAGE WITH SARAH BETH BARKER TO DR. DORANTES AND DR. VILLASENOR RE: ACCEPTANCE TO [facility]. PENDING RESPONSE. NOTIFIED SARAH BETH VARGAS WITH BENCHMARK OF ACCEPTANCE TO [facility]. ASKED FOR CLEARANCE. PER SAM, PATIENT HAS NOT BEEN CLEARED FROM THEIR PERSPECTIVE AT THIS TIME. CD
[2019-12-19] MEDS: FAMOTIDINE 20MG TAB 20 MG TAB PO SCH (20:48)
[2019-12-19] MEDS: LEVETIRACETAM 500 MG TABLET PO SCH (20:48)
[2019-12-19] MEDS: ACETAMINOPHEN ELIXIR 650 MG/20.3 ML UDCUP PEG PRN (21:15)
[2019-12-20] VITALS (21 sets, daily range): BP systolic 99–178; BP diastolic 45–81
[2019-12-20] MEDS: HALOPERIDOL LACTATE 5 MG/ML VIAL IV SCH (00:30)
[2019-12-20] MEDS: VANCOMYCIN 1GM+NS 250ML 250 ML IV SCH ×2 (02:55→12:25)
[2019-12-20 03:43] LABS: BASOPHILS % (AUTO) 1.2 % (0.0-5.0); EOSINOPHILS % (AUTO) 5.4 % (0.0-8.0); HEMATOCRIT 27.4 % (42-54); LYMPHOCYTES % (AUTO) 35.4 % (21.0-51.0); MEAN CORPUSCULAR HEMOGLOBIN 28.1 pg (27.0-33.0); MEAN CORPUSCULAR HGB CONC 32.1 g/dL (32.0-36.0); MEAN CORPUSCULAR VOLUME 87.5 fL (79-99); MONOCYTES % (AUTO) 9.9 % (3.0-13.0); NEUTROPHILS % (AUTO) 47.7 % (40.0-77.0); RED BLOOD CELL COUNT(AUTO) 3.13 MIL/uL (4.50-6.20); RED CELL DISTRIBUTION WIDTH 14.9 % (11.0-15.5); WHITE BLOOD COUNT (AUTO) 8.4 K/uL (4.8-10.8)
[2019-12-20 03:46] LABS: PLATELET COUNT (AUTO) 739 K/uL (130-400)
[2019-12-20 04:02] LABS: ALBUMIN 2.5 g/dL (3.5-5.0); BILIRUBIN,TOTAL 0.2 mg/dL (0.2-1.0); CREATININE 1.5 mg/dL (0.5-1.5); MAGNESIUM 2.2 mg/dL (1.80-2.40); POTASSIUM 3.6 mmol/L (3.5-5.1); TOTAL PROTEIN, SERUM 7.1 g/dL (6.0-8.3)
[2019-12-20] MEDS: LEVOTHYROXINE 150 MCG TABLET PO SCH (06:28)
[2019-12-20] MEDS: INSULIN HUMULIN R 100 UNIT/ML 3ML SQ SCH ×6 (06:28→21:00)
[2019-12-20] MEDS: IPRATROPIUM/ALBUTEROL SULFATE 3 ML SOLUTION IH SCH ×3 (06:40→18:34)
[2019-12-20] MEDS: LEVETIRACETAM 500 MG TABLET PO SCH ×2 (08:22→20:22)
[2019-12-20] MEDS: ENOXAPARIN SODIUM 40 MG/0.4 ML SYRINGE SQ SCH (08:22)
[2019-12-20] MEDS: METOPROLOL TARTRATE 50 MG TAB PO SCH ×2 (08:22→20:22)
[2019-12-20] MEDS: LEVOFLOXACIN 750 MG/D5W 150 ML 150 ML IV SCH (08:23)
[2019-12-20] MEDS: FAMOTIDINE 20MG TAB 20 MG TAB PO SCH ×2 (08:23→20:26)
[2019-12-20] MEDS: QUETIAPINE FUMARATE 25 MG TAB PO SCH (08:29)
[2019-12-20] MEDS: CHLORDIAZEPOXIDE HCL 25 MG CAP PO SCH (08:30)
[2019-12-20] MEDS: LACOSAMIDE 200 MG/20 ML VIAL IV SCH ×2 (08:30→20:21)
[2019-12-20] MEDS: INSULIN GLARGINE 100 UNITS/ML 10 ML VIAL SQ SCH (08:32)
[2019-12-20] MEDS: FLUCONAZOLE 400 MG/NS 200 ML 200 ML IV SCH (10:33)
[2019-12-20] MEDS ORDERED: LORAZEPAM 2 MG/ML 1 ML VIAL IM PRN (10:45)
--- NOTE | 2019-12-20 13:17 | NUR ---
CALLED DR HAMILTON VILLASENOR WAS CONTACTED REGARDING PATIENT'S DISCHARGE TO [facility] BUT PAGER WASN'T ANSWERED. OFFICE NUMBERS WERE CALLED AND I WAS TOLD IS IN [facility] . CONTINUE TO WAIT ON TO ROUND SO DISCHARGE CONCERNS CAN BE ADDRESSED. FAMILY AT BEDSIDE WITH PATIENT. VS STABLE AND PATIENT IS JAEL X3 AT THE MOMENT. WILL CONTINUE TO MONITOR.
[2019-12-20] MEDS ORDERED: INSULIN HUMULIN R 100 UNIT/ML 3ML SQ SCH (17:00)
--- NOTE | 2019-12-20 18:40 | NUR ---
CALLED REPORT TO [facility] AND EMS TRANSFER REPORT WAS GIVEN TO TRI Ramos RN AT [facility] AND [facility] WITH EMS. PATIENT CONTINUOUS TO BE PLEASANT AND DO DO REQUIRE MITTENS. SISTER PRESENT AT BEDSIDE. WILL CONTINUE TO MONITOR
--- NOTE | 2019-12-20 22:15 | NUR ---
EMS at [facility] for Transfer of patient to [facility]. Telepak removed, patient stable, Vitals signs stable, AOX3, left with smart and IV's. No distress noted during the transfer of patient. Paperwork given to EMS.
[2019-12-21] MEDS ORDERED: INSULIN GLARGINE 100 UNITS/ML 10 ML VIAL SQ SCH (09:00)
[2019-12-21] MEDS ORDERED: AMLODIPINE BESYLATE 5 MG TAB PO SCH (09:00)
== END 2019-12-20 22:16 | DRG 614 ==
LOC: EDSTATUS 14:00 → 3DH 12-03 07:32 → 2DH 12-04 15:27
PROVIDERS: ADMIT Student in an Organized Health Care Education/Training Program; ATTEND Student in an Organized Health Care Education/Training Program
PROC: 5A1955Z Respiratory Ventilation, Greater than 96 Consecutive Hours (ICD-10-PCS; 2019-12-04)
PROC: 0BH17EZ Insertion of Endotracheal Airway into Trachea, Via Natural or Artificial Opening (ICD-10-PCS; 2019-12-04)
PROC: 30233K1 Transfusion of Nonautologous Frozen Plasma into Peripheral Vein, Percutaneous Approach (ICD-10-PCS; 2019-12-04)
PROC: 30233N1 Transfusion of Nonautologous Red Blood Cells into Peripheral Vein, Percutaneous Approach (ICD-10-PCS; 2019-12-04)
PROC: 0GT30ZZ Resection of Right Adrenal Gland, Open Approach (ICD-10-PCS; principal; 2019-12-04 08:47)
PROC: 4A10X4Z Monitoring of Central Nervous Electrical Activity, External Approach (ICD-10-PCS; 2019-12-07)
PROC: 5A09457 Assistance with Respiratory Ventilation, 24-96 Consecutive Hours, Continuous Positive Airway Pressure (ICD-10-PCS; 2019-12-09)
PROC: 5A09357 Assistance with Respiratory Ventilation, Less than 24 Consecutive Hours, Continuous Positive Airway Pressure (ICD-10-PCS; 2019-12-12)
PROC: 5A09357 Assistance with Respiratory Ventilation, Less than 24 Consecutive Hours, Continuous Positive Airway Pressure (ICD-10-PCS; 2019-12-13)
PROC: 5A09357 Assistance with Respiratory Ventilation, Less than 24 Consecutive Hours, Continuous Positive Airway Pressure (ICD-10-PCS; 2019-12-14)
PROC: 5A09357 Assistance with Respiratory Ventilation, Less than 24 Consecutive Hours, Continuous Positive Airway Pressure (ICD-10-PCS; 2019-12-15)
PROC: 02HV33Z Insertion of Infusion Device into Superior Vena Cava, Percutaneous Approach (ICD-10-PCS; 2019-12-16)
PROC: B548ZZA Ultrasonography of Superior Vena Cava, Guidance (ICD-10-PCS; 2019-12-16)
DX: D35.01 Benign neoplasm of right adrenal gland (principal); J96.01 Acute respiratory failure with hypoxia; J18.9 Pneumonia, unspecified organism; A41.9 Sepsis, unspecified organism; Z99.11 Dependence on respirator [ventilator] status; E87.2 Acidosis; J98.11 Atelectasis; N17.9 Acute kidney failure, unspecified; R47.01 Aphasia; G93.40 Encephalopathy, unspecified; K56.7 Ileus, unspecified; B49 Unspecified mycosis; R56.9 Unspecified convulsions; H02.401 Unspecified ptosis of right eyelid; D64.9 Anemia, unspecified; I13.10 Hypertensive heart and chronic kidney disease without heart failure, with stage 1 through stage 4 chronic kidney disease, or unspecified chronic kidney disease; N18.9 Chronic kidney disease, unspecified; E11.22 Type 2 diabetes mellitus with diabetic chronic kidney disease; E11.65 Type 2 diabetes mellitus with hyperglycemia; E11.649 Type 2 diabetes mellitus with hypoglycemia without coma; E86.0 Dehydration; E66.9 Obesity, unspecified; H91.90 Unspecified hearing loss, unspecified ear; E03.9 Hypothyroidism, unspecified; K21.9 Gastro-esophageal reflux disease without esophagitis; I25.10 Atherosclerotic heart disease of native coronary artery without angina pectoris; E78.5 Hyperlipidemia, unspecified; Z20.828 Contact with and (suspected) exposure to other viral communicable diseases; Z87.730 Personal history of (corrected) cleft lip and palate; Z68.35 Body mass index [BMI] 35.0-35.9, adult; Z79.899 Other long term (current) drug therapy; Z82.49 Family history of ischemic heart disease and other diseases of the circulatory system; Z83.3 Family history of diabetes mellitus; Z79.4 Long term (current) use of insulin
CPT/HCPCS: 31720; 36415; 36430; 36569; 36600; 70450; 70551; 71045; 74018; 74176; 76700; 80048; 80053; 80177; 80202; 82010; 82140; 82435; 82530; 82533; 82803; 82947; 82948; 83036; 83605; 83735; 83880; 84100; 84132; 84145; 84244; 84295; 85014; 85018; 85025; 85027; 85610; 85730; 86850; 86900; 86901; 86923; 86927; 87040; 87071; 87205; 92610; 93005; 93356; 94002; 94003; 94640; 94660; 94664; 95816; 97039; A4344; C1894; C8929; G0378; J0171; J0330; J0360; J0690; J1450; J1630; J1650; J1720; J1815; J1940; J1953; J1956; J2001; J2060; J2248; J2250; J2270; J2543; J2704; J3010; J3370; J3475; J3480; J3490; J7030; J7040; J7042; J7060; J7070; P9016; P9017; P9045; U0003

== ENCOUNTER 2020-04-02 20:28 | Inpatient (IN) | payer MEDICARE ==
[~2020-04-02] VITALS: Ht 160 cm; Wt 77.1 kg
[~2020-04-02 20:28] MED LIST changes: +AMLO-258 PO; +DOXA1TAB2 PO; +DULO60CA64 PO; +HYDR25TA PO; +INSU500I SQ; -IOHEXOL 350 MG/ML 100ML INFUS..BTL IV ONE; -IOHEXOL-350 75 ML VIAL IV ONE; +LEVO150T11 PO; +MECL-160 PO; +METO50TA18 PO; +POTASSIUM CL ER PO; +PRAV80TA21 PO
[2020-04-02] MEDS ORDERED: ACETAMINOPHEN 500 MG TABLET ONE (21:05)
[2020-04-02 21:06] LABS: BASOPHILS % (AUTO) 0.3 % (0.0-5.0); EOSINOPHILS % (AUTO) 0.3 % (0.0-8.0); HEMATOCRIT 40.6 % (42-54); LYMPHOCYTES % (AUTO) 20.1 % (21.0-51.0); MEAN CORPUSCULAR HEMOGLOBIN 25.3 pg (27.0-33.0); MEAN CORPUSCULAR HGB CONC 33.3 g/dL (32.0-36.0); MONOCYTES % (AUTO) 5.4 % (3.0-13.0); NEUTROPHILS % (AUTO) 73.7 % (40.0-77.0); PLATELET COUNT (AUTO) 261 K/uL (130-400); RED BLOOD CELL COUNT(AUTO) 5.34 MIL/uL (4.50-6.20); WHITE BLOOD COUNT (AUTO) 5.8 K/uL (4.8-10.8)
[2020-04-02 21:21] LABS: INR 0.99 (0.85-1.15); PROTHROMBIN TIME 10.8 SEC (9.6-11.6)
[2020-04-02 21:22] LABS: PARTIAL THROMBOPLASTIN TIME 34.2 SEC (26.3-35.5)
[2020-04-02 21:24] LABS: CREATININE 1.3 mg/dL (0.5-1.5); POTASSIUM 3.6 mmol/L (3.5-5.1)
[2020-04-02 21:29] LABS: ALBUMIN 3.4 g/dL (3.5-5.0); BILIRUBIN,TOTAL 0.3 mg/dL (0.2-1.0); TOTAL PROTEIN, SERUM 8.9 g/dL (6.0-8.3)
[2020-04-02] MEDS ORDERED: DEXAMETHASONE SOD PHOSPHATE 4 MG/ML 5ML VIAL ONE (21:37)
[2020-04-02] MEDS ORDERED: AZITHROMYCIN 500MG+NS 250ML 250 ML IV ONE (21:37)
[2020-04-02] MEDS ORDERED: CEFTRIAXONE 1G VIAL ONE (21:37)
[2020-04-02 22:15] LABS: ABG BASE EXCESS -2.3 mmol/L (-2.0-3.0); ABG HCO3 20.9 mmol/L (21.0-28.0); ABG PCO2 32 mmHg (35-48)
[2020-04-02] MEDS: CEFTRIAXONE 1G VIAL IVP SCH (22:45)
[2020-04-02] MEDS: DEXAMETHASONE SOD PHOSPHATE 4 MG/ML 1ML VIAL IVP SCH (22:45)
[2020-04-02] MEDS ORDERED: PHARMACY COMMUNICATION MISC SCH (22:45)
[2020-04-02] MEDS: ASCORBIC ACID 500 MG TAB PO SCH (22:45)
[2020-04-02] MEDS ORDERED: LACTULOSE 20 GM/30 ML UDCUP PO PRN (22:45)
[2020-04-02] MEDS ORDERED: ONDANSETRON 4MG INJ IV PRN (22:45)
[2020-04-02] MEDS ORDERED: DiphenhydrAMINE HCL 50 MG/ML VIAL IV PRN (22:45)
[2020-04-02] MEDS ORDERED: NITROGLYCERIN 0.4 MG SL TAB SL PRN (22:45)
[2020-04-02] MEDS ORDERED: ERGOCALCIFEROL (VITAMIN D2) 50,000 UNIT CAPSULE PO ONE (22:45)
[2020-04-02] MEDS ORDERED: ALBUTEROL 0.083% 2.5 MG/3 ML INH IH PRN (22:45)
[2020-04-02] MEDS ORDERED: GUAIFENESIN-DM 200/20 MG 10 ML PO PRN (22:45)
[2020-04-02] MEDS ORDERED: DIPHENHYDRAMINE HCL 25 MG CAPSULE PO PRN (22:45)
[2020-04-02] MEDS ORDERED: MAG/ALUM/SIMETH 30 ML UDCUP PO PRN (22:45)
[2020-04-03] MEDS ORDERED: ASCORBIC ACID 500 MG TAB ONE (00:54)
[2020-04-03] MEDS ORDERED: ERGOCALCIFEROL (VITAMIN D2) 50,000 UNIT CAPSULE ONE (00:54)
[2020-04-03] MEDS ORDERED: POTASSIUM CHLORIDE 20MEQ/100ML 100 ML IV PRN ×2 (01:30)
[2020-04-03] MEDS ORDERED: GLUCAGON 1MG KIT 1 MG ML IM PRN (01:30)
[2020-04-03] MEDS: INSULIN GLARGINE 100 UNITS/ML 10 ML VIAL SQ SCH ×2 (01:30→21:39)
[2020-04-03 04:10] VITALS: BP 136/65
[2020-04-03 04:11] LABS: BASOPHILS % (AUTO) 0.2 % (0.0-5.0); HEMATOCRIT 39.1 % (42-54); LYMPHOCYTES % (AUTO) 21.4 % (21.0-51.0); MEAN CORPUSCULAR HEMOGLOBIN 25.6 pg (27.0-33.0); MEAN CORPUSCULAR HGB CONC 33.2 g/dL (32.0-36.0); NEUTROPHILS % (AUTO) 75.1 % (40.0-77.0); PLATELET COUNT (AUTO) 246 K/uL (130-400); RED BLOOD CELL COUNT(AUTO) 5.08 MIL/uL (4.50-6.20); RED CELL DISTRIBUTION WIDTH 19.9 % (11.0-15.5); WHITE BLOOD COUNT (AUTO) 6.3 K/uL (4.8-10.8)
[2020-04-03 04:27] LABS: ALBUMIN 3.1 g/dL (3.5-5.0); BILIRUBIN,TOTAL 0.2 mg/dL (0.2-1.0); CREATININE 1.3 mg/dL (0.5-1.5); CRP QUANTITATIVE 143.7 mg/L (0.00-9.0); POTASSIUM 3.7 mmol/L (3.5-5.1); TOTAL PROTEIN, SERUM 8.5 g/dL (6.0-8.3)
[2020-04-03] MEDS: KCL 20 MEQ ERTAB PO PRN ×2 (05:36→06:34)
[2020-04-03] MEDS: ASCORBIC ACID 500 MG TAB PO SCH ×3 (06:07→21:38)
[2020-04-03] MEDS: INSULIN HUMULIN R 100 UNIT/ML 3ML SQ SCH ×7 (07:08→21:40)
[2020-04-03 08:00] VITALS: BP 123/58
[2020-04-03] MEDS: FAMOTIDINE 20MG TAB PO SCH ×2 (08:18→21:38)
[2020-04-03] MEDS: ZINC SULFATE 220 CAPSULE PO SCH (08:18)
[2020-04-03] MEDS: CEFTRIAXONE 1G VIAL IVP SCH (08:20)
[2020-04-03] MEDS: ENOXAPARIN SODIUM 40 MG/0.4 ML SYRINGE SQ SCH ×2 (08:24→09:00)
[2020-04-03] MEDS ORDERED: DOXYCYCLINE HYCLATE 100 MG TABLET PO SCH (09:00)
[2020-04-03] MEDS: PHARMACY COMMUNICATION MISC SCH ×3 (10:10→20:15)
[2020-04-03] MEDS ORDERED: PHARMACY COMMUNICATION MISC SCH (11:00)
[2020-04-03 12:00] VITALS: BP 132/70
[2020-04-03 16:00] VITALS: BP 126/63
[2020-04-03] MEDS ORDERED: OLME20TA22 PO (16:28)
[2020-04-03] MEDS ORDERED: CHOL500051 PO (16:30)
[2020-04-03] MEDS ORDERED: INSU100I3 SQ (16:33)
[2020-04-03] MEDS ORDERED: INSU200I4 SQ (16:34)
[2020-04-03 20:00] VITALS: BP 148/71
[2020-04-03] MEDS: DEXAMETHASONE SOD PHOSPHATE 4 MG/ML 1ML VIAL IVP SCH (21:38)
[2020-04-03] MEDS: ACETAMINOPHEN 325 MG TAB PO PRN (23:12)
[2020-04-04] VITALS: BP 169/74
[2020-04-04] MEDS: PHARMACY COMMUNICATION MISC SCH ×6 (00:15→20:15)
[2020-04-04 04:00] VITALS: BP 135/74
[2020-04-04] MEDS: ASCORBIC ACID 500 MG TAB PO SCH ×3 (06:02→23:14)
[2020-04-04 06:09] LABS: BASOPHILS % (AUTO) 0.1 % (0.0-5.0); HEMATOCRIT 41.2 % (42-54); LYMPHOCYTES % (AUTO) 8.5 % (21.0-51.0); MEAN CORPUSCULAR HEMOGLOBIN 25.5 pg (27.0-33.0); MEAN CORPUSCULAR HGB CONC 33.5 g/dL (32.0-36.0); MEAN CORPUSCULAR VOLUME 76.2 fL (79-99); MONOCYTES % (AUTO) 3.9 % (3.0-13.0); NEUTROPHILS % (AUTO) 86.7 % (40.0-77.0); PLATELET COUNT (AUTO) 342 K/uL (130-400); RED BLOOD CELL COUNT(AUTO) 5.41 MIL/uL (4.50-6.20); RED CELL DISTRIBUTION WIDTH 20.4 % (11.0-15.5); WHITE BLOOD COUNT (AUTO) 13.9 K/uL (4.8-10.8)
[2020-04-04 06:26] LABS: ALBUMIN 3.2 g/dL (3.5-5.0); BILIRUBIN,TOTAL 0.3 mg/dL (0.2-1.0); CREATININE 1.1 mg/dL (0.5-1.5); MAGNESIUM 2.1 mg/dL (1.80-2.40); POTASSIUM 3.9 mmol/L (3.5-5.1)
[2020-04-04] MEDS ORDERED: ALBUTEROL INHALER 90MCG/INH IH PRN (06:45)
[2020-04-04] MEDS: INSULIN HUMULIN R 100 UNIT/ML 3ML SQ SCH ×7 (07:06→20:08)
[2020-04-04] MEDS: ZINC SULFATE 220 CAPSULE PO SCH (08:43)
[2020-04-04] MEDS: FAMOTIDINE 20MG TAB PO SCH ×2 (08:43→20:07)
[2020-04-04] MEDS: ENOXAPARIN SODIUM 40 MG/0.4 ML SYRINGE SQ SCH ×3 (08:44→23:14)
[2020-04-04 09:08] VITALS: BP 153/90
[2020-04-04 12:21] VITALS: BP 133/82
[2020-04-04] MEDS ORDERED: COMPOUND IV REFRIGERATED 1 EACH IVSOLN MISC PRN (14:00)
[2020-04-04] MEDS ORDERED: REMDESIVIR (EUA) 520 200 MG in 0.9% NACL 250ML 250 ML IV ONE (14:00)
[2020-04-04] MEDS: DEXAMETHASONE SOD PHOSPHATE 4 MG/ML 1ML VIAL IVP SCH (14:58)
[2020-04-04 18:49] VITALS: BP 190/83
[2020-04-04 19:00] VITALS: BP 140/87
[2020-04-04] MEDS: METOPROLOL TARTRATE 50 MG TAB PO SCH (19:40)
[2020-04-04] MEDS: ACETAMINOPHEN 325 MG TAB PO PRN (19:46)
[2020-04-04] MEDS: ATORVASTATIN 20 MG TABLET PO SCH (20:07)
[2020-04-04] MEDS: INSULIN GLARGINE 100 UNITS/ML 10 ML VIAL SQ SCH (20:09)
[2020-04-04] MEDS ORDERED: NON-FORMULARY MEDICATION 1 EACH (Pravastatin Sodium 80 MG) PO SCH (21:00)
[2020-04-04] MEDS: FUROSEMIDE 40MG VIAL IV SCH (23:22)
[2020-04-04 23:50] LABS: ABG BASE EXCESS -5.6 mmol/L (-2.0-3.0); ABG HCO3 21.9 mmol/L (21.0-28.0); ABG OXYGEN SATURATION 73.9 % (95.0-99.0); ABG PCO2 50 mmHg (35-48)
[2020-04-05] VITALS (45 sets, daily range): BP systolic 77–153; BP diastolic 45–106
[2020-04-05] MEDS: LORAZEPAM 2 MG/ML 1 ML VIAL ONE ×2 (00:04→01:29)
[2020-04-05] MEDS: PHARMACY COMMUNICATION MISC SCH ×6 (00:15→17:05)
[2020-04-05] MEDS ORDERED: DEXMEDETOMIDINE HCL 200 MCG/2 ML VIAL IV ONE (00:16)
[2020-04-05] MEDS ORDERED: LORAZEPAM 2 MG/ML 1 ML VIAL IVP STA (00:20)
[2020-04-05] MEDS ORDERED: DEXMEDETOMIDINE HCL 400 MCG in 0.9%NACL 100ML 100 ML IV SCH (00:30)
[2020-04-05] MEDS ORDERED: PROPOFOL 1000 MG/100 ML 0 ML IV ONE (00:58)
[2020-04-05] MEDS ORDERED: FENTANYL 2500MCG+NS 250ML 250 ML IV ONE (01:10)
[2020-04-05] MEDS ORDERED: PROPOFOL 1000 MG/100 ML 100 ML IV ONE (01:16)
[2020-04-05] MEDS ORDERED: FENTANYL CITRATE PF 0.05 MG/ML 1,000 MCG in 0.9%NACL 100ML 100 ML IVPB SCH (01:30)
[2020-04-05 01:31] LABS: ALBUMIN 2.9 g/dL (3.5-5.0); BILIRUBIN,TOTAL 0.3 mg/dL (0.2-1.0); CREATININE 1.5 mg/dL (0.5-1.5); POTASSIUM 4.6 mmol/L (3.5-5.1)
[2020-04-05 01:35] LABS: BASOPHILS % (AUTO) 0.2 % (0.0-5.0); EOSINOPHILS % (AUTO) 0.8 % (0.0-8.0); HEMATOCRIT 43.1 % (42-54); LYMPHOCYTES % (AUTO) 6.7 % (21.0-51.0); MEAN CORPUSCULAR HGB CONC 33.6 g/dL (32.0-36.0); MEAN CORPUSCULAR VOLUME 77.4 fL (79-99); MONOCYTES % (AUTO) 3.1 % (3.0-13.0); NUCLEATED RED BLOOD CELLS 0.2 % (0.0-0.19); PLATELET COUNT (AUTO) 435 K/uL (130-400); RED BLOOD CELL COUNT(AUTO) 5.57 MIL/uL (4.50-6.20); RED CELL DISTRIBUTION WIDTH 21.3 % (11.0-15.5); WHITE BLOOD COUNT (AUTO) 16.5 K/uL (4.8-10.8)
[2020-04-05] MEDS ORDERED: NOREPINEPHRIN 4MG/NS 250ML 250 ML IV ONE (01:50)
[2020-04-05 02:11] LABS: CRP QUANTITATIVE 335.9 mg/L (0.00-9.0)
[2020-04-05 03:53] LABS: ABG BASE EXCESS -4.5 mmol/L (-2.0-3.0); ABG HCO3 22.8 mmol/L (21.0-28.0); ABG OXYGEN SATURATION 62.6 % (95.0-99.0); ABG PCO2 50 mmHg (35-48)
[2020-04-05] MEDS ORDERED: PHARMACY COMMUNICATION MISC SCH ×2 (04:55→06:30)
[2020-04-05] MEDS ORDERED: VECURONIUM 10MG/10ML IV ONE (04:55)
[2020-04-05 05:48] LABS: BASOPHILS % (AUTO) 0.3 % (0.0-5.0); EOSINOPHILS % (AUTO) 0.9 % (0.0-8.0); HEMATOCRIT 40.5 % (42-54); LYMPHOCYTES % (AUTO) 11.5 % (21.0-51.0); MEAN CORPUSCULAR HEMOGLOBIN 25.4 pg (27.0-33.0); MEAN CORPUSCULAR HGB CONC 32.8 g/dL (32.0-36.0); MEAN CORPUSCULAR VOLUME 77.4 fL (79-99); MONOCYTES % (AUTO) 2.6 % (3.0-13.0); NEUTROPHILS % (AUTO) 83.9 % (40.0-77.0); NUCLEATED RED BLOOD CELLS 0.3 % (0.0-0.19); PLATELET COUNT (AUTO) 393 K/uL (130-400); RED BLOOD CELL COUNT(AUTO) 5.23 MIL/uL (4.50-6.20); RED CELL DISTRIBUTION WIDTH 21.2 % (11.0-15.5)
[2020-04-05] MEDS: REMDESIVIR LABS MISC SCH (06:00)
[2020-04-05 06:04] LABS: ALBUMIN 2.6 g/dL (3.5-5.0); BILIRUBIN,TOTAL 0.3 mg/dL (0.2-1.0); CREATININE 1.7 mg/dL (0.5-1.5); POTASSIUM 4.9 mmol/L (3.5-5.1); TOTAL PROTEIN, SERUM 8.2 g/dL (6.0-8.3)
[2020-04-05] MEDS ORDERED: VECURONIUM IV PRN (06:30)
[2020-04-05] MEDS ORDERED: [UNRECOGNIZED DRUG - OTHER] IV PRN (06:30)
[2020-04-05] MEDS: INSULIN HUMULIN R 100 UNIT/ML 3ML SQ SCH ×7 (07:30→20:47)
[2020-04-05] MEDS: (Cholecalciferol (Vitamin D3) (Vitamin D3) 125 MCG) PO SCH (08:00)
[2020-04-05] MEDS ORDERED: NON-FORMULARY MEDICATION 1 EACH (Cholecalciferol (Vitamin D3) (Vitamin D3) 125 MCG) PO SCH (08:00)
[2020-04-05] MEDS: METOPROLOL TARTRATE 50 MG TAB PO SCH ×2 (09:00→20:17)
[2020-04-05] MEDS ORDERED: NON-FORMULARY MEDICATION 1 EACH (Amlodipine Besylate 10 MG) PO SCH (09:00)
[2020-04-05] MEDS ORDERED: NON-FORMULARY MEDICATION 1 EACH (Olmesartan Medoxomil 20 MG) PO SCH (09:00)
[2020-04-05] MEDS ORDERED: NON-FORMULARY MEDICATION 1 EACH (Duloxetine HCl 60 MG) PO SCH (09:00)
[2020-04-05] MEDS: PROPOFOL 1000 MG/100 ML 100 ML IV SCH ×4 (09:55→20:48)
[2020-04-05] MEDS: VECURONIUM 10MG/10ML IV PRN ×3 (10:05→22:13)
[2020-04-05 11:41] LABS: HEMOGLOBIN A1C 8.5 % (4.0-6.0)
[2020-04-05] MEDS: DEXAMETHASONE SOD PHOSPHATE 4 MG/ML 1ML VIAL IVP SCH ×2 (11:50)
[2020-04-05] MEDS: CEFEPIME HCL 2 GM VIAL IVP SCH ×2 (11:50→21:54)
[2020-04-05] MEDS: LEVOTHYROXINE 125 MCG TABLET PO SCH (11:58)
[2020-04-05] MEDS: LINEZOLID 600 MG/ISO-OSM 300 ML IV SCH ×2 (11:58→21:52)
[2020-04-05] MEDS: LOSARTAN 50 MG TABLET PO SCH (11:58)
[2020-04-05] MEDS: ASCORBIC ACID 500 MG TAB PO SCH ×3 (11:58→23:12)
[2020-04-05] MEDS: ZINC SULFATE 220 CAPSULE PO SCH (11:58)
[2020-04-05] MEDS: AMLODIPINE 5 MG TAB PO SCH (12:05)
[2020-04-05] MEDS: ENOXAPARIN SODIUM 40 MG/0.4 ML SYRINGE SQ SCH ×3 (12:05→20:45)
[2020-04-05] MEDS: FAMOTIDINE 20MG TAB PO SCH ×2 (12:05→20:45)
[2020-04-05] MEDS: DULOXETINE HCL 30 MG CAP PO SCH (12:11)
[2020-04-05] MEDS ORDERED: PHARMACY COMMUNICATION MISC STA (13:46)
[2020-04-05] MEDS ORDERED: REMDESIVIR (EUA) 520 100 MG in 0.9% NACL 250ML 250 ML IV SCH (14:00)
[2020-04-05 14:23] LABS: ABG BASE EXCESS -5.1 mmol/L (-2.0-3.0); ABG HCO3 22.7 mmol/L (21.0-28.0); ABG OXYGEN SATURATION 83.8 % (95.0-99.0); ABG PCO2 54 mmHg (35-48)
[2020-04-05] MEDS: FENTANYL 2500MCG+NS 250ML 250 ML IV SCH (15:23)
[2020-04-05] MEDS ORDERED: MIDAZOLAM 100MG-0.9% NS 100ML 100ML BAG IV PRN (17:30)
[2020-04-05] MEDS ORDERED: MIDAZOLAM HCL 1 MG/ML 2ML VIAL IV PRN (17:30)
[2020-04-05] MEDS ORDERED: MIDAZOLAM 100MG-0.9% NS 100ML 100 ML IV SCH (17:30)
[2020-04-05] MEDS: NOREPINEPHRIN 4MG/NS 250ML 250 ML IV SCH (19:44)
[2020-04-05] MEDS: ATORVASTATIN 20 MG TABLET PO SCH (20:45)
[2020-04-05] MEDS ORDERED: INSULIN GLARGINE 100 UNITS/ML 10 ML VIAL SQ SCH (21:00)
[2020-04-05] MEDS: FUROSEMIDE 40MG VIAL IV SCH (23:12)
[2020-04-06] VITALS (90 sets, daily range): BP systolic 85–140; BP diastolic 45–62
[2020-04-06] MEDS: DEXAMETHASONE SOD PHOSPHATE 4 MG/ML 1ML VIAL IVP SCH ×2 (00:07→11:08)
[2020-04-06] MEDS: PHARMACY COMMUNICATION MISC SCH ×6 (00:07→20:15)
[2020-04-06] MEDS: PROPOFOL 1000 MG/100 ML 100 ML IV SCH ×4 (02:51→17:11)
[2020-04-06] MEDS ORDERED: NOREPINEPHRIN 8MG/250ML NS PMX 250 ML IV ONE (02:55)
[2020-04-06] MEDS: FENTANYL 2500MCG+NS 250ML 250 ML IV SCH ×2 (03:02→16:49)
[2020-04-06] MEDS: NOREPINEPHRIN 4MG/NS 250ML 250 ML IV SCH ×2 (04:43→18:44)
[2020-04-06 05:14] LABS: BASOPHILS % (AUTO) 0.1 % (0.0-5.0); HEMATOCRIT 37.6 % (42-54); LYMPHOCYTES % (AUTO) 10.6 % (21.0-51.0); MEAN CORPUSCULAR HEMOGLOBIN 24.7 pg (27.0-33.0); MEAN CORPUSCULAR HGB CONC 30.9 g/dL (32.0-36.0); MONOCYTES % (AUTO) 2.6 % (3.0-13.0); NEUTROPHILS % (AUTO) 85.4 % (40.0-77.0); NUCLEATED RED BLOOD CELLS 0.3 % (0.0-0.19); PLATELET COUNT (AUTO) 520 K/uL (130-400); RED CELL DISTRIBUTION WIDTH 21.4 % (11.0-15.5); WHITE BLOOD COUNT (AUTO) 13.7 K/uL (4.8-10.8)
[2020-04-06 05:23] LABS: ALBUMIN 2.3 g/dL (3.5-5.0); BILIRUBIN,TOTAL 0.3 mg/dL (0.2-1.0); CREATININE 2.5 mg/dL (0.5-1.5); POTASSIUM 5.4 mmol/L (3.5-5.1); TOTAL PROTEIN, SERUM 7.7 g/dL (6.0-8.3)
[2020-04-06 05:31] LABS: ABG BASE EXCESS -9.4 mmol/L (-2.0-3.0); ABG HCO3 20.8 mmol/L (21.0-28.0); ABG OXYGEN SATURATION 87.2 % (95.0-99.0); ABG PCO2 64 mmHg (35-48)
[2020-04-06 05:43] LABS: CRP QUANTITATIVE 309.3 mg/L (0.00-9.0)
[2020-04-06] MEDS: REMDESIVIR LABS MISC SCH (06:00)
[2020-04-06] MEDS: LEVOTHYROXINE 125 MCG TABLET PO SCH (06:13)
[2020-04-06] MEDS: ASCORBIC ACID 500 MG TAB PO SCH ×3 (06:13→21:41)
[2020-04-06] MEDS: INSULIN HUMULIN R 100 UNIT/ML 3ML SQ SCH ×7 (06:58→21:40)
[2020-04-06] MEDS: (Cholecalciferol (Vitamin D3) (Vitamin D3) 125 MCG) PO SCH (08:00)
[2020-04-06] MEDS: AMLODIPINE 5 MG TAB PO SCH (08:08)
[2020-04-06] MEDS: DULOXETINE HCL 30 MG CAP PO SCH (08:09)
[2020-04-06] MEDS: ZINC SULFATE 220 CAPSULE PO SCH (08:09)
[2020-04-06] MEDS: METOPROLOL TARTRATE 50 MG TAB PO SCH ×2 (08:09→21:41)
[2020-04-06] MEDS: LOSARTAN 50 MG TABLET PO SCH (08:09)
[2020-04-06] MEDS: FAMOTIDINE 20MG TAB PO SCH ×2 (08:09→21:41)
[2020-04-06] MEDS: ENOXAPARIN SODIUM 40 MG/0.4 ML SYRINGE SQ SCH ×2 (08:10→21:46)
[2020-04-06] MEDS: CEFEPIME HCL 2 GM VIAL IVP SCH ×2 (09:33→21:41)
[2020-04-06] MEDS: LINEZOLID 600 MG/ISO-OSM 300 ML IV SCH ×2 (09:47→21:45)
[2020-04-06] MEDS: MIDAZOLAM 100MG-0.9% NS 100ML 100ML BAG IV SCH (10:00)
[2020-04-06] MEDS ORDERED: KAYEXALATE 15GM/60ML NG SCH (10:15)
[2020-04-06] MEDS: PANTOPRAZOLE 40 MG/VIAL IVP SCH (11:41)
[2020-04-06] MEDS ORDERED: SOLU-MEDROL 125MG VIAL IVP SCH (14:00)
[2020-04-06 15:35] LABS: PROTHROMBIN TIME 10.9 SEC (9.6-11.6)
[2020-04-06 16:16] LABS: ABG BASE EXCESS -7.1 mmol/L (-2.0-3.0); ABG HCO3 19.3 mmol/L (21.0-28.0); ABG OXYGEN SATURATION 89.8 % (95.0-99.0); ABG PCO2 42 mmHg (35-48)
[2020-04-06] MEDS ORDERED: INSULIN GLARGINE 100 UNITS/ML 10 ML VIAL SQ SCH (21:00)
[2020-04-06] MEDS: ATORVASTATIN 20 MG TABLET PO SCH (21:41)
[2020-04-07] VITALS (42 sets, daily range): BP systolic 69–142; BP diastolic 41–69
[2020-04-07] MEDS: FUROSEMIDE 40MG VIAL IV SCH ×2 (00:17→23:49)
[2020-04-07] MEDS: PROPOFOL 1000 MG/100 ML 100 ML IV SCH ×4 (00:24→18:13)
[2020-04-07] MEDS: MIDAZOLAM 100MG-0.9% NS 100ML 100ML BAG IV SCH ×2 (03:47→15:45)
[2020-04-07] MEDS: NOREPINEPHRIN 4MG/NS 250ML 250 ML IV SCH ×2 (03:48→15:43)
[2020-04-07] MEDS: FENTANYL 2500MCG+NS 250ML 250 ML IV SCH ×3 (04:17→15:52)
[2020-04-07 05:50] LABS: BASOPHILS % (AUTO) 0.3 % (0.0-5.0); HEMATOCRIT 38.7 % (42-54); LYMPHOCYTES % (AUTO) 10.9 % (21.0-51.0); MEAN CORPUSCULAR HGB CONC 31.8 g/dL (32.0-36.0); MEAN CORPUSCULAR VOLUME 78.7 fL (79-99); MONOCYTES % (AUTO) 4.8 % (3.0-13.0); NUCLEATED RED BLOOD CELLS 0.8 % (0.0-0.19); PLATELET COUNT (AUTO) 614 K/uL (130-400); RED BLOOD CELL COUNT(AUTO) 4.92 MIL/uL (4.50-6.20); RED CELL DISTRIBUTION WIDTH 21.4 % (11.0-15.5)
[2020-04-07] MEDS: REMDESIVIR LABS MISC SCH (06:00)
[2020-04-07 06:10] LABS: ALBUMIN 2.3 g/dL (3.5-5.0); BILIRUBIN,TOTAL 0.2 mg/dL (0.2-1.0); CREATININE 2.3 mg/dL (0.5-1.5); CRP QUANTITATIVE 170.7 mg/L (0.00-9.0); POTASSIUM 5.1 mmol/L (3.5-5.1); TOTAL PROTEIN, SERUM 6.8 g/dL (6.0-8.3)
[2020-04-07 07:48] LABS: ABG BASE EXCESS -6.3 mmol/L (-2.0-3.0); ABG HCO3 19.8 mmol/L (21.0-28.0); ABG OXYGEN SATURATION 89.2 % (95.0-99.0); ABG PCO2 41 mmHg (35-48)
[2020-04-07] MEDS: (Cholecalciferol (Vitamin D3) (Vitamin D3) 125 MCG) PO SCH (08:00)
[2020-04-07] MEDS: LEVOTHYROXINE 125 MCG TABLET PO SCH (08:28)
[2020-04-07] MEDS: FAMOTIDINE 20MG TAB PO SCH ×2 (08:28→21:27)
[2020-04-07] MEDS: ZINC SULFATE 220 CAPSULE PO SCH (08:28)
[2020-04-07] MEDS: DEXAMETHASONE SOD PHOSPHATE 4 MG/ML 1ML VIAL IVP SCH (08:28)
[2020-04-07] MEDS: CEFEPIME HCL 2 GM VIAL IVP SCH ×2 (08:29→21:27)
[2020-04-07] MEDS: LINEZOLID 600 MG/ISO-OSM 300 ML IV SCH ×2 (08:29→22:17)
[2020-04-07] MEDS: PANTOPRAZOLE 40 MG/VIAL IVP SCH (08:29)
[2020-04-07] MEDS: ASCORBIC ACID 500 MG TAB PO SCH ×3 (08:29→23:49)
[2020-04-07] MEDS: ENOXAPARIN SODIUM 40 MG/0.4 ML SYRINGE SQ SCH ×2 (08:29→21:27)
[2020-04-07] MEDS: DULOXETINE HCL 30 MG CAP PO SCH (08:29)
[2020-04-07] MEDS: AMLODIPINE 5 MG TAB PO SCH (08:30)
[2020-04-07] MEDS: LOSARTAN 50 MG TABLET PO SCH (08:30)
[2020-04-07] MEDS: METOPROLOL TARTRATE 50 MG TAB PO SCH ×2 (08:30→21:00)
[2020-04-07] MEDS: INSULIN HUMULIN R 100 UNIT/ML 3ML SQ SCH ×6 (08:32→21:00)
[2020-04-07] MEDS ORDERED: INSULIN REGULAR, HUMAN 3ML 100 UNIT in 0.9%NACL 100ML 99 ML IV PRN ×2 (11:30)
[2020-04-07] MEDS ORDERED: PHARMACY COMMUNICATION MISC ONE (11:30)
[2020-04-07 14:52] LABS: PROTEIN,URINE RANDOM 46.7 mg/dL (0-11.9)
[2020-04-07] MEDS: PHARMACY COMMUNICATION MISC SCH ×2 (16:15→20:15)
[2020-04-07] MEDS: ATORVASTATIN 20 MG TABLET PO SCH (21:27)
[2020-04-08] VITALS (23 sets, daily range): BP systolic 101–160; BP diastolic 51–69
[2020-04-08] MEDS: PHARMACY COMMUNICATION MISC SCH ×6 (00:15→20:15)
[2020-04-08] MEDS: PROPOFOL 1000 MG/100 ML 100 ML IV SCH ×4 (01:56→19:27)
[2020-04-08 05:11] LABS: ABG BASE EXCESS 0.8 mmol/L (-2.0-3.0); ABG HCO3 24.2 mmol/L (21.0-28.0); ABG OXYGEN SATURATION 91.8 % (95.0-99.0); ABG PCO2 35 mmHg (35-48)
[2020-04-08 05:21] LABS: BASOPHILS % (AUTO) 0.3 % (0.0-5.0); HEMATOCRIT 38.5 % (42-54); LYMPHOCYTES % (AUTO) 7.6 % (21.0-51.0); MEAN CORPUSCULAR HEMOGLOBIN 24.8 pg (27.0-33.0); MEAN CORPUSCULAR HGB CONC 32.7 g/dL (32.0-36.0); MEAN CORPUSCULAR VOLUME 75.8 fL (79-99); MONOCYTES % (AUTO) 4.9 % (3.0-13.0); NEUTROPHILS % (AUTO) 84.8 % (40.0-77.0); NUCLEATED RED BLOOD CELLS 1.5 % (0.0-0.19); PLATELET COUNT (AUTO) 650 K/uL (130-400); RED BLOOD CELL COUNT(AUTO) 5.08 MIL/uL (4.50-6.20); RED CELL DISTRIBUTION WIDTH 20.9 % (11.0-15.5)
[2020-04-08 05:37] LABS: BILIRUBIN,TOTAL 0.3 mg/dL (0.2-1.0); CREATININE 1.3 mg/dL (0.5-1.5); MAGNESIUM 2.6 mg/dL (1.80-2.40); PHOSPHORUS 2.7 mg/dL (2.5-4.9); POTASSIUM 3.6 mmol/L (3.5-5.1); TOTAL PROTEIN, SERUM 7.2 g/dL (6.0-8.3)
[2020-04-08] MEDS: REMDESIVIR LABS MISC SCH (06:00)
[2020-04-08] MEDS: INSULIN HUMULIN R 100 UNIT/ML 3ML SQ SCH ×5 (06:11→23:27)
[2020-04-08] MEDS: LEVOTHYROXINE 125 MCG TABLET PO SCH (06:42)
[2020-04-08] MEDS: (Cholecalciferol (Vitamin D3) (Vitamin D3) 125 MCG) PO SCH (07:05)
[2020-04-08] MEDS: DULOXETINE HCL 30 MG CAP PO SCH (08:01)
[2020-04-08] MEDS: ENOXAPARIN SODIUM 40 MG/0.4 ML SYRINGE SQ SCH ×2 (08:02→20:32)
[2020-04-08] MEDS: ASCORBIC ACID 500 MG TAB PO SCH ×3 (08:02→20:31)
[2020-04-08] MEDS: DEXAMETHASONE SOD PHOSPHATE 4 MG/ML 1ML VIAL IVP SCH (08:02)
[2020-04-08] MEDS: ZINC SULFATE 220 CAPSULE PO SCH (08:02)
[2020-04-08] MEDS: FAMOTIDINE 20MG TAB PO SCH ×2 (08:02→20:31)
[2020-04-08] MEDS: AMLODIPINE 5 MG TAB PO SCH (08:02)
[2020-04-08] MEDS: POLYETHYLENE GLYCOL 3350 17 GM POWD.PACK PO SCH (08:02)
[2020-04-08] MEDS: SENNOSIDES 8.6 MG TABLET GT SCH (08:02)
[2020-04-08] MEDS: LOSARTAN 50 MG TABLET PO SCH (08:03)
[2020-04-08] MEDS: METOPROLOL TARTRATE 50 MG TAB PO SCH (08:03)
[2020-04-08] MEDS: PANTOPRAZOLE 40 MG/VIAL IVP SCH (08:16)
[2020-04-08] MEDS: CEFEPIME HCL 2 GM VIAL IVP SCH ×2 (08:22→20:32)
[2020-04-08] MEDS: FENTANYL 2500MCG+NS 250ML 250 ML IV SCH ×4 (08:30→12:13)
[2020-04-08] MEDS ORDERED: DOCUSATE NA 100MG/10ML UDCUP GT SCH (09:00)
[2020-04-08] MEDS ORDERED: PHARMACY COMMUNICATION MISC STA ×3 (09:42→10:05)
[2020-04-08] MEDS ORDERED: COMPOUND NARC IV MISC 1 EACH IVSOLN MISC PRN (10:45)
[2020-04-08] MEDS: LINEZOLID 600 MG/ISO-OSM 300 ML IV SCH ×2 (11:01→20:32)
[2020-04-08] MEDS: KETAMINE 50MG/ML SYRINGE 100 MG in 0.9%NACL 100ML 100 ML IV SCH ×3 (11:06→23:17)
[2020-04-08] MEDS: DOCUSATE NA 100MG/10ML UDCUP GT SCH ×3 (11:51→20:31)
[2020-04-08] MEDS: BARICITINIB (EUA) 2 MG TABLET PO SCH (12:08)
[2020-04-08] MEDS: NOREPINEPHRIN 4MG/NS 250ML 250 ML IV SCH (13:15)
[2020-04-08] MEDS: MIDAZOLAM 100MG-0.9% NS 100ML 100ML BAG IV SCH (14:57)
[2020-04-08] MEDS: REMDESIVIR (EUA) 520 100 MG in 0.9% NACL 250ML 250 ML IV SCH (15:07)
[2020-04-08] MEDS ORDERED: INSULIN GLARGINE 100 UNITS/ML 10 ML VIAL SQ SCH (21:00)
[2020-04-08] MEDS: ERYTHROMYCIN BASE 250 MG TABLET GT SCH (23:03)
[2020-04-08] MEDS: FUROSEMIDE 40MG VIAL IV SCH (23:21)
[2020-04-09] VITALS (23 sets, daily range): BP systolic 82–132; BP diastolic 45–65
[2020-04-09] MEDS: PHARMACY COMMUNICATION MISC SCH ×4 (00:15→11:35)
[2020-04-09] MEDS: PROPOFOL 1000 MG/100 ML 100 ML IV SCH ×3 (01:25→15:28)
[2020-04-09] MEDS: MIDAZOLAM 100MG-0.9% NS 100ML 100ML BAG IV SCH (02:39)
[2020-04-09] MEDS: REMDESIVIR LABS MISC SCH (05:16)
[2020-04-09] MEDS: DOCUSATE NA 100MG/10ML UDCUP GT SCH ×3 (05:19→20:56)
[2020-04-09] MEDS: ERYTHROMYCIN BASE 250 MG TABLET GT SCH ×3 (05:20→20:57)
[2020-04-09] MEDS: ASCORBIC ACID 500 MG TAB PO SCH ×3 (05:31→20:57)
[2020-04-09] MEDS: LEVOTHYROXINE 125 MCG TABLET PO SCH (05:31)
[2020-04-09 05:35] LABS: ABG BASE EXCESS -5.4 mmol/L (-2.0-3.0); ABG HCO3 19.4 mmol/L (21.0-28.0); ABG OXYGEN SATURATION 93.3 % (95.0-99.0); ABG PCO2 36 mmHg (35-48)
[2020-04-09 05:48] LABS: BASOPHILS % (AUTO) 0.3 % (0.0-5.0); EOSINOPHILS % (AUTO) 0.1 % (0.0-8.0); HEMATOCRIT 37.4 % (42-54); LYMPHOCYTES % (AUTO) 11.6 % (21.0-51.0); MEAN CORPUSCULAR HEMOGLOBIN 25.7 pg (27.0-33.0); MEAN CORPUSCULAR HGB CONC 32.4 g/dL (32.0-36.0); MEAN CORPUSCULAR VOLUME 79.6 fL (79-99); MONOCYTES % (AUTO) 5.2 % (3.0-13.0); NEUTROPHILS % (AUTO) 78.2 % (40.0-77.0); NUCLEATED RED BLOOD CELLS 1.1 % (0.0-0.19); PLATELET COUNT (AUTO) 592 K/uL (130-400); RED CELL DISTRIBUTION WIDTH 22.5 % (11.0-15.5); WHITE BLOOD COUNT (AUTO) 10.4 K/uL (4.8-10.8)
[2020-04-09 06:26] LABS: BILIRUBIN,TOTAL 0.3 mg/dL (0.2-1.0); CREATININE 1.9 mg/dL (0.5-1.5); CRP QUANTITATIVE 38.2 mg/L (0.00-9.0); POTASSIUM 4.6 mmol/L (3.5-5.1); TOTAL PROTEIN, SERUM 6.1 g/dL (6.0-8.3)
[2020-04-09] MEDS: INSULIN HUMULIN R 100 UNIT/ML 3ML SQ SCH (06:27)
[2020-04-09] MEDS: VECURONIUM 50MG/NS 50ML IV SCH ×4 (08:00→15:30)
[2020-04-09] MEDS ORDERED: INSULIN GLARGINE 100 UNITS/ML 10 ML VIAL SQ SCH (09:00)
[2020-04-09] MEDS: FUROSEMIDE 20MG VIAL IV SCH (09:15)
[2020-04-09] MEDS ORDERED: PHARMACY COMMUNICATION MISC SCH ×2 (09:15→15:30)
[2020-04-09] MEDS: INSULIN REGULAR, HUMAN 3ML 100 UNIT in 0.9%NACL 100ML 99 ML IV PRN ×6 (10:00→19:07)
[2020-04-09] MEDS: ZINC SULFATE 220 CAPSULE PO SCH (10:46)
[2020-04-09] MEDS: SENNOSIDES 8.6 MG TABLET GT SCH (10:46)
[2020-04-09] MEDS: FAMOTIDINE 20MG TAB PO SCH ×2 (10:46→20:57)
[2020-04-09] MEDS: POLYETHYLENE GLYCOL 3350 17 GM POWD.PACK PO SCH (10:46)
[2020-04-09] MEDS: CEFEPIME HCL 2 GM VIAL IVP SCH ×2 (10:47→20:57)
[2020-04-09] MEDS: DEXAMETHASONE SOD PHOSPHATE 4 MG/ML 1ML VIAL IVP SCH (10:47)
[2020-04-09] MEDS: ENOXAPARIN SODIUM 40 MG/0.4 ML SYRINGE SQ SCH ×2 (10:48→20:56)
[2020-04-09] MEDS: LINEZOLID 600 MG/ISO-OSM 300 ML IV SCH ×2 (10:48→20:57)
[2020-04-09] MEDS: BARICITINIB (EUA) 2 MG TABLET PO SCH (11:00)
[2020-04-09] MEDS: REMDESIVIR (EUA) 520 100 MG in 0.9% NACL 250ML 250 ML IV SCH (14:07)
[2020-04-09] MEDS: NOREPINEPHRIN 4MG/NS 250ML 250 ML IV SCH (15:29)
[2020-04-09 16:22] LABS: POTASSIUM 3.6 mmol/L (3.5-5.1)
[2020-04-09] MEDS: KETAMINE 50MG/ML SYRINGE 500 MG in 0.9% NACL 500ML IV.SOLN 500 ML IV SCH ×2 (17:10→23:49)
[2020-04-09] MEDS ORDERED: SOLU-MEDROL 125MG VIAL IVP SCH (22:00)
[2020-04-10] VITALS (22 sets, daily range): BP systolic 95–139; BP diastolic 46–65
[2020-04-10] MEDS: VECURONIUM 50MG/NS 50ML IV SCH ×6 (00:07→14:22)
[2020-04-10] MEDS: PROPOFOL 1000 MG/100 ML 100 ML IV SCH ×4 (02:13→14:21)
[2020-04-10] MEDS: ACETAMINOPHEN 325 MG TAB PO PRN ×2 (03:43→09:07)
[2020-04-10] MEDS: KETAMINE 50MG/ML SYRINGE 500 MG in 0.9% NACL 500ML IV.SOLN 500 ML IV SCH ×3 (04:57→22:51)
[2020-04-10 05:27] LABS: BASOPHILS % (AUTO) 0.5 % (0.0-5.0); EOSINOPHILS % (AUTO) 0.4 % (0.0-8.0); HEMATOCRIT 36.4 % (42-54); LYMPHOCYTES % (AUTO) 19.4 % (21.0-51.0); MEAN CORPUSCULAR HEMOGLOBIN 25.1 pg (27.0-33.0); MEAN CORPUSCULAR HGB CONC 31.9 g/dL (32.0-36.0); MEAN CORPUSCULAR VOLUME 78.8 fL (79-99); NEUTROPHILS % (AUTO) 76.4 % (40.0-77.0); NUCLEATED RED BLOOD CELLS 3.8 % (0.0-0.19); PLATELET COUNT (AUTO) 438 K/uL (130-400); RED BLOOD CELL COUNT(AUTO) 4.62 MIL/uL (4.50-6.20); RED CELL DISTRIBUTION WIDTH 21.8 % (11.0-15.5); WHITE BLOOD COUNT (AUTO) 7.6 K/uL (4.8-10.8)
[2020-04-10] MEDS: LEVOTHYROXINE 125 MCG TABLET PO SCH (05:35)
[2020-04-10] MEDS: ERYTHROMYCIN BASE 250 MG TABLET GT SCH ×3 (05:35→20:54)
[2020-04-10] MEDS: DOCUSATE NA 100MG/10ML UDCUP GT SCH ×3 (05:35→20:54)
[2020-04-10] MEDS: ASCORBIC ACID 500 MG TAB PO SCH ×3 (05:37→20:54)
[2020-04-10 05:46] LABS: ALBUMIN 1.6 g/dL (3.5-5.0); BILIRUBIN,TOTAL 0.4 mg/dL (0.2-1.0); CREATININE 1.9 mg/dL (0.5-1.5); POTASSIUM 4.4 mmol/L (3.5-5.1); TOTAL PROTEIN, SERUM 5.8 g/dL (6.0-8.3)
[2020-04-10 06:23] LABS: CRP QUANTITATIVE 295.7 mg/L (0.00-9.0)
[2020-04-10] MEDS: SENNOSIDES 8.6 MG TABLET GT SCH (09:06)
[2020-04-10] MEDS: POLYETHYLENE GLYCOL 3350 17 GM POWD.PACK PO SCH (09:06)
[2020-04-10] MEDS: BARICITINIB (EUA) 2 MG TABLET PO SCH (09:06)
[2020-04-10] MEDS: FAMOTIDINE 20MG TAB PO SCH ×2 (09:07→20:56)
[2020-04-10] MEDS: ZINC SULFATE 220 CAPSULE PO SCH (09:07)
[2020-04-10] MEDS: DEXAMETHASONE SOD PHOSPHATE 4 MG/ML 1ML VIAL IVP SCH (09:08)
[2020-04-10] MEDS: CEFEPIME HCL 2 GM VIAL IVP SCH (09:08)
[2020-04-10] MEDS: FUROSEMIDE 20MG VIAL IV SCH (09:08)
[2020-04-10] MEDS: ENOXAPARIN SODIUM 40 MG/0.4 ML SYRINGE SQ SCH ×2 (09:10→20:54)
[2020-04-10] MEDS: LINEZOLID 600 MG/ISO-OSM 300 ML IV SCH (09:10)
[2020-04-10] MEDS: NOREPINEPHRIN 4MG/NS 250ML 250 ML IV SCH (09:12)
[2020-04-10] MEDS ORDERED: VASOPRESSIN 20 UNITS in 0.9%NACL 100ML 100 ML IV SCH (10:45)
[2020-04-10 11:49] LABS: APPEARANCE,URINE Turbid (CLEAR); BILIRUBIN,URINE Negative (NEGATIVE); COLOR,URINE Yellow (YELLOW); GLUCOSE, URINE (UA) Negative (NEGATIVE); KETONES,URINE Negative (NEGATIVE); LEUKOCYTE ESTERASE ,URINE Moderate (NEGATIVE); NITRATE,URINE Negative (NEGATIVE); OCCULT BLOOD,URINE Large (NEGATIVE); PH,URINE 5.5 (5.0-8.0); PROTEIN,URINE POS 1+ mg/dL (NEGATIVE); UROBILINOGEN,URINE 0.2 mg/dL (0.2-1.0)
[2020-04-10 12:06] LABS: BACTERIA,URINE Few /HPF (None Seen)
[2020-04-10 12:07] LABS: AMORPHOUS SEDIMENT,UR Few /LPF (None Seen); RBC,URINE 0-1 /HPF (0-1)
[2020-04-10] MEDS: INSULIN REGULAR, HUMAN 3ML 100 UNIT in 0.9%NACL 100ML 99 ML IV PRN ×2 (12:09)
[2020-04-10] MEDS: MEROPENEM 1 GM VIAL IVP SCH ×2 (12:49→22:44)
[2020-04-11] VITALS (25 sets, daily range): BP systolic 97–186; BP diastolic 45–86
[2020-04-11] MEDS: VECURONIUM 50MG/NS 50ML IV SCH ×2 (03:06)
[2020-04-11] MEDS: PROPOFOL 1000 MG/100 ML 100 ML IV SCH ×4 (03:55→21:12)
[2020-04-11] MEDS: LEVOTHYROXINE 125 MCG TABLET PO SCH (05:02)
[2020-04-11] MEDS: DOCUSATE NA 100MG/10ML UDCUP GT SCH ×3 (05:02→21:09)
[2020-04-11] MEDS: ERYTHROMYCIN BASE 250 MG TABLET GT SCH ×3 (05:02→21:10)
[2020-04-11] MEDS: ASCORBIC ACID 500 MG TAB PO SCH ×3 (05:02→21:18)
[2020-04-11] MEDS: INSULIN REGULAR, HUMAN 3ML 100 UNIT in 0.9%NACL 100ML 99 ML IV PRN ×4 (05:14→15:37)
[2020-04-11 05:49] LABS: HEMATOCRIT 32.6 % (42-54); MEAN CORPUSCULAR HEMOGLOBIN 25.1 pg (27.0-33.0); MEAN CORPUSCULAR HGB CONC 31.9 g/dL (32.0-36.0); MEAN CORPUSCULAR VOLUME 78.6 fL (79-99); NUCLEATED RED BLOOD CELLS 0.6 % (0.0-0.19); PLATELET COUNT (AUTO) 414 K/uL (130-400); RED BLOOD CELL COUNT(AUTO) 4.15 MIL/uL (4.50-6.20); RED CELL DISTRIBUTION WIDTH 22.7 % (11.0-15.5); WHITE BLOOD COUNT (AUTO) 13.9 K/uL (4.8-10.8)
[2020-04-11 06:04] LABS: ALBUMIN 1.4 g/dL (3.5-5.0); BILIRUBIN,TOTAL 0.4 mg/dL (0.2-1.0); CREATININE 1.8 mg/dL (0.5-1.5); MAGNESIUM 2.6 mg/dL (1.80-2.40); PHOSPHORUS 5.1 mg/dL (2.5-4.9); POTASSIUM 4.3 mmol/L (3.5-5.1); TOTAL PROTEIN, SERUM 6.7 g/dL (6.0-8.3)
[2020-04-11 07:23] LABS: ABG HCO3 19.8 mmol/L (21.0-28.0); ABG PCO2 40 mmHg (35-48)
[2020-04-11 07:39] LABS: BAND NEUTROPHILS % (MANUAL) 25 % (0-2); LYMPHOCYTES % (MANUAL) 16 % (22-44); MAN.DIFF COMMENT-IMPRESSION MANUAL DIFFERENTIAL; MONOCYTES % (MANUAL) 2 % (2-9); SEGMENTED NEUTROPHILS % 57 % (40-70)
[2020-04-11] MEDS: SENNOSIDES 8.6 MG TABLET GT SCH (09:07)
[2020-04-11] MEDS: FAMOTIDINE 20MG TAB PO SCH ×2 (09:07→21:10)
[2020-04-11] MEDS: BARICITINIB (EUA) 2 MG TABLET PO SCH (09:07)
[2020-04-11] MEDS: ZINC SULFATE 220 CAPSULE PO SCH (09:07)
[2020-04-11] MEDS: ENOXAPARIN SODIUM 40 MG/0.4 ML SYRINGE SQ SCH ×2 (09:08→21:09)
[2020-04-11] MEDS: DEXAMETHASONE SOD PHOSPHATE 4 MG/ML 1ML VIAL IVP SCH (09:08)
[2020-04-11] MEDS: ACETAMINOPHEN 325 MG TAB PO PRN (09:09)
[2020-04-11] MEDS: MEROPENEM 1 GM VIAL IVP SCH ×2 (11:15→22:03)
[2020-04-11] MEDS: KETAMINE 50MG/ML SYRINGE 500 MG in 0.9% NACL 500ML IV.SOLN 500 ML IV SCH ×3 (12:50→21:17)
[2020-04-12] VITALS (22 sets, daily range): BP systolic 123–206; BP diastolic 55–93
[2020-04-12] MEDS: ACETAMINOPHEN 325 MG TAB PO PRN ×2 (01:11→02:21)
[2020-04-12] MEDS: VECURONIUM 50MG/NS 50ML IV SCH ×4 (01:56→17:25)
[2020-04-12] MEDS: PROPOFOL 1000 MG/100 ML 100 ML IV SCH ×6 (02:55→20:58)
[2020-04-12] MEDS: KETAMINE 50MG/ML SYRINGE 500 MG in 0.9% NACL 500ML IV.SOLN 500 ML IV SCH ×4 (05:12→20:57)
[2020-04-12 05:26] LABS: BASOPHILS % (AUTO) 0.4 % (0.0-5.0); EOSINOPHILS % (AUTO) 0.5 % (0.0-8.0); HEMATOCRIT 35.7 % (42-54); LYMPHOCYTES % (AUTO) 13.5 % (21.0-51.0); MEAN CORPUSCULAR HEMOGLOBIN 25.1 pg (27.0-33.0); MEAN CORPUSCULAR HGB CONC 31.9 g/dL (32.0-36.0); MEAN CORPUSCULAR VOLUME 78.6 fL (79-99); MONOCYTES % (AUTO) 7.1 % (3.0-13.0); NEUTROPHILS % (AUTO) 73.1 % (40.0-77.0); NUCLEATED RED BLOOD CELLS 1.5 % (0.0-0.19); PLATELET COUNT (AUTO) 445 K/uL (130-400); RED BLOOD CELL COUNT(AUTO) 4.54 MIL/uL (4.50-6.20); RED CELL DISTRIBUTION WIDTH 23.4 % (11.0-15.5)
[2020-04-12 05:48] LABS: CREATININE 1.2 mg/dL (0.5-1.5); POTASSIUM 4.3 mmol/L (3.5-5.1)
[2020-04-12] MEDS: DOCUSATE NA 100MG/10ML UDCUP GT SCH ×3 (05:53→21:47)
[2020-04-12] MEDS: ERYTHROMYCIN BASE 250 MG TABLET GT SCH (05:53)
[2020-04-12] MEDS: LEVOTHYROXINE 125 MCG TABLET PO SCH (05:53)
[2020-04-12] MEDS: ASCORBIC ACID 500 MG TAB PO SCH ×3 (05:55→21:47)
[2020-04-12] MEDS ORDERED: FENTANYL CITRATE PF 0.05 MG/ML 1,000 MCG in 0.9%NACL 100ML 100 ML IV PRN (06:15)
[2020-04-12] MEDS ORDERED: ESMOLOL HCL 2500 MG/NACL 250 ML IV PRN ×2 (06:15→07:30)
[2020-04-12] MEDS ORDERED: METOPROLOL TARTRATE 1 MG/ML 5ML VIAL IV ONE (06:22)
[2020-04-12] MEDS ORDERED: FENTANYL 2500MCG+NS 250ML 250 ML IV ONE (06:23)
[2020-04-12] MEDS ORDERED: METOPROLOL TARTRATE 1 MG/ML 5ML VIAL IV SCH (07:12)
[2020-04-12 07:51] LABS: MAGNESIUM 2.7 mg/dL (1.80-2.40); PHOSPHORUS 3.7 mg/dL (2.5-4.9)
[2020-04-12] MEDS: BARICITINIB (EUA) 2 MG TABLET PO SCH (08:50)
[2020-04-12] MEDS: ZINC SULFATE 220 CAPSULE PO SCH (08:50)
[2020-04-12] MEDS: SENNOSIDES 8.6 MG TABLET GT SCH (08:51)
[2020-04-12] MEDS: DEXAMETHASONE SOD PHOSPHATE 4 MG/ML 1ML VIAL IVP SCH (08:51)
[2020-04-12] MEDS: FAMOTIDINE 20MG TAB PO SCH ×2 (08:51→21:48)
[2020-04-12] MEDS: ENOXAPARIN SODIUM 40 MG/0.4 ML SYRINGE SQ SCH ×2 (08:52→21:48)
[2020-04-12] MEDS ORDERED: POLYETHYLENE GLYCOL 3350 17 GM POWD.PACK PO SCH (09:00)
[2020-04-12] MEDS ORDERED: POLYETHYLENE GLYCOL 3350 17 GM POWD.PACK PO PRN (10:00)
[2020-04-12] MEDS: MEROPENEM 1 GM VIAL IVP SCH ×2 (10:45→17:34)
[2020-04-12] MEDS: INSULIN REGULAR, HUMAN 3ML 100 UNIT in 0.9%NACL 100ML 99 ML IV PRN ×2 (17:28)
[2020-04-13] VITALS (23 sets, daily range): BP systolic 97–192; BP diastolic 41–88
[2020-04-13] MEDS: VECURONIUM 50MG/NS 50ML IV SCH ×8 (01:00→18:10)
[2020-04-13] MEDS: PROPOFOL 1000 MG/100 ML 100 ML IV SCH ×5 (01:03→18:10)
[2020-04-13] MEDS: MEROPENEM 1 GM VIAL IVP SCH ×2 (01:03→11:07)
[2020-04-13] MEDS: KETAMINE 50MG/ML SYRINGE 500 MG in 0.9% NACL 500ML IV.SOLN 500 ML IV SCH ×4 (01:52→18:09)
[2020-04-13 03:56] LABS: ABG BASE EXCESS -0.4 mmol/L (-2.0-3.0); ABG HCO3 26.1 mmol/L (21.0-28.0); ABG OXYGEN SATURATION 91.1 % (95.0-99.0); ABG PCO2 51 mmHg (35-48)
[2020-04-13] MEDS: ASCORBIC ACID 500 MG TAB PO SCH ×3 (05:18→22:53)
[2020-04-13] MEDS: DOCUSATE NA 100MG/10ML UDCUP GT SCH ×3 (05:18→22:00)
[2020-04-13] MEDS: LEVOTHYROXINE 125 MCG TABLET PO SCH (05:23)
[2020-04-13 06:26] LABS: BASOPHILS % (AUTO) 0.6 % (0.0-5.0); EOSINOPHILS % (AUTO) 2.7 % (0.0-8.0); HEMATOCRIT 35.1 % (42-54); LYMPHOCYTES % (AUTO) 13.8 % (21.0-51.0); MEAN CORPUSCULAR HGB CONC 31.3 g/dL (32.0-36.0); MEAN CORPUSCULAR VOLUME 79.8 fL (79-99); MONOCYTES % (AUTO) 6.3 % (3.0-13.0); NUCLEATED RED BLOOD CELLS 1.4 % (0.0-0.19); PLATELET COUNT (AUTO) 476 K/uL (130-400); RED CELL DISTRIBUTION WIDTH 23.5 % (11.0-15.5); WHITE BLOOD COUNT (AUTO) 14.5 K/uL (4.8-10.8)
[2020-04-13 06:42] LABS: ALBUMIN 1.8 g/dL (3.5-5.0); BILIRUBIN,TOTAL 0.3 mg/dL (0.2-1.0); CREATININE 1.1 mg/dL (0.5-1.5); CRP QUANTITATIVE 100.9 mg/L (0.00-9.0); POTASSIUM 4.2 mmol/L (3.5-5.1); TOTAL PROTEIN, SERUM 7.1 g/dL (6.0-8.3)
[2020-04-13] MEDS ORDERED: NACL IV PRN ×2 (07:00→09:15)
[2020-04-13] MEDS ORDERED: ESMOLOL HCL IV PRN ×2 (07:00→09:15)
[2020-04-13] MEDS: BARICITINIB (EUA) 2 MG TABLET PO SCH (08:15)
[2020-04-13] MEDS: SENNOSIDES 8.6 MG TABLET GT SCH (08:16)
[2020-04-13] MEDS: ZINC SULFATE 220 CAPSULE PO SCH (08:16)
[2020-04-13] MEDS: DEXAMETHASONE SOD PHOSPHATE 4 MG/ML 1ML VIAL IVP SCH (08:16)
[2020-04-13] MEDS: FAMOTIDINE 20MG TAB PO SCH ×2 (08:16→21:57)
[2020-04-13] MEDS: ENOXAPARIN SODIUM 40 MG/0.4 ML SYRINGE SQ SCH ×2 (08:16→21:00)
[2020-04-13] MEDS: METOPROLOL TARTRATE 25 MG TAB PO SCH ×2 (11:07→21:59)
[2020-04-13] MEDS: VERAPAMIL HCL 240 MG SRTAB PO SCH (11:07)
[2020-04-13] MEDS ORDERED: PHARMACY COMMUNICATION MISC SCH (13:15)
[2020-04-13] MEDS: ZOSYN 3.375GM+NS 50ML 50 ML IV SCH ×2 (13:33→22:48)
[2020-04-13] MEDS: FENTANYL 2500MCG+NS 250ML 250 ML IV SCH (18:09)
[2020-04-14] VITALS (18 sets, daily range): BP systolic 123–189; BP diastolic 55–90
[2020-04-14] MEDS: HYDRALAZINE 25MG TABLET PO PRN ×2 (00:24→05:23)
[2020-04-14 03:54] LABS: ABG BASE EXCESS 0.6 mmol/L (-2.0-3.0); ABG HCO3 25.9 mmol/L (21.0-28.0); ABG OXYGEN SATURATION 93.2 % (95.0-99.0); ABG PCO2 44 mmHg (35-48)
[2020-04-14] MEDS: DOCUSATE NA 100MG/10ML UDCUP GT SCH (05:05)
[2020-04-14 05:09] LABS: BASOPHILS % (AUTO) 0.8 % (0.0-5.0); EOSINOPHILS % (AUTO) 1.9 % (0.0-8.0); HEMATOCRIT 36.1 % (42-54); LYMPHOCYTES % (AUTO) 13.6 % (21.0-51.0); MEAN CORPUSCULAR HEMOGLOBIN 24.6 pg (27.0-33.0); MEAN CORPUSCULAR VOLUME 79.3 fL (79-99); MONOCYTES % (AUTO) 5.8 % (3.0-13.0); NEUTROPHILS % (AUTO) 72.7 % (40.0-77.0); NUCLEATED RED BLOOD CELLS 0.3 % (0.0-0.19); PLATELET COUNT (AUTO) 411 K/uL (130-400); RED BLOOD CELL COUNT(AUTO) 4.55 MIL/uL (4.50-6.20); RED CELL DISTRIBUTION WIDTH 23.6 % (11.0-15.5); WHITE BLOOD COUNT (AUTO) 21.2 K/uL (4.8-10.8)
[2020-04-14 05:40] LABS: CRP QUANTITATIVE 123.2 mg/L (0.00-9.0); POTASSIUM 4.9 mmol/L (3.5-5.1)
[2020-04-14] MEDS: ZOSYN 3.375GM+NS 50ML 50 ML IV SCH (06:35)
[2020-04-14] MEDS: LEVOTHYROXINE 125 MCG TABLET PO SCH (06:42)
[2020-04-14] MEDS: ASCORBIC ACID 500 MG TAB PO SCH ×3 (06:43→23:06)
[2020-04-14] MEDS: DEXAMETHASONE SOD PHOSPHATE 4 MG/ML 1ML VIAL IVP SCH (08:51)
[2020-04-14] MEDS: ENOXAPARIN SODIUM 40 MG/0.4 ML SYRINGE SQ SCH ×2 (08:51→23:09)
[2020-04-14] MEDS: VERAPAMIL HCL 240 MG SRTAB PO SCH (08:52)
[2020-04-14] MEDS: FAMOTIDINE 20MG TAB PO SCH ×2 (08:52→23:07)
[2020-04-14] MEDS: BARICITINIB (EUA) 2 MG TABLET PO SCH (08:52)
[2020-04-14] MEDS: SENNOSIDES 8.6 MG TABLET GT SCH (08:52)
[2020-04-14] MEDS: ZINC SULFATE 220 CAPSULE PO SCH (08:52)
[2020-04-14] MEDS: METOPROLOL TARTRATE 25 MG TAB PO SCH ×2 (08:52→23:11)
[2020-04-14] MEDS: PROPOFOL 1000 MG/100 ML 100 ML IV SCH ×2 (08:53→17:01)
[2020-04-14] MEDS ORDERED: VERAPAMIL HCL 80 MG TABLET PO SCH (08:54)
[2020-04-14] MEDS: VECURONIUM 50MG/NS 50ML IV SCH ×2 (12:22)
[2020-04-14] MEDS: KETAMINE 50MG/ML SYRINGE 500 MG in 0.9% NACL 500ML IV.SOLN 500 ML IV SCH ×2 (12:22→20:35)
[2020-04-14] MEDS: MEROPENEM 1 GM VIAL IVP SCH ×2 (13:22→17:01)
[2020-04-14] MEDS: VERAPAMIL HCL 80 MG TABLET PO SCH ×2 (13:23→21:00)
[2020-04-14] MEDS: ACYCLOVIR 800 MG TABLET PO SCH ×3 (17:01→23:05)
[2020-04-14] MEDS: DEXTROSE 50%-WATER 50 ML DISP.SYRIN IV PRN (18:05)
[2020-04-14] MEDS: FENTANYL 2500MCG+NS 250ML 250 ML IV SCH (23:04)
[2020-04-14] MEDS: ALBUTEROL 0.083% 2.5 MG/3 ML INH IH SCH ×2 (23:06→23:12)
[2020-04-15] VITALS (13 sets, daily range): BP systolic 116–183; BP diastolic 50–78
[2020-04-15] MEDS: MEROPENEM 1 GM VIAL IVP SCH ×3 (02:26→18:02)
[2020-04-15 03:18] LABS: ABG BASE EXCESS -0.4 mmol/L (-2.0-3.0); ABG HCO3 26.4 mmol/L (21.0-28.0); ABG OXYGEN SATURATION 92.1 % (95.0-99.0); ABG PCO2 53 mmHg (35-48)
[2020-04-15] MEDS: KETAMINE IV SCH ×2 (06:52→17:05)
[2020-04-15] MEDS: NACL 0.9% IV SCH ×2 (06:52→17:05)
[2020-04-15] MEDS: VECURONIUM 50MG/NS 50ML IV SCH ×6 (06:56→22:53)
[2020-04-15] MEDS: ACYCLOVIR 800 MG TABLET PO SCH ×5 (07:11→23:00)
[2020-04-15] MEDS: LEVOTHYROXINE 125 MCG TABLET PO SCH (07:11)
[2020-04-15] MEDS: ASCORBIC ACID 500 MG TAB PO SCH ×3 (07:11→22:59)
[2020-04-15] MEDS: ALBUTEROL 0.083% 2.5 MG/3 ML INH IH SCH ×3 (07:12→23:34)
[2020-04-15] MEDS: VERAPAMIL HCL 80 MG TABLET PO SCH ×3 (09:40→23:00)
[2020-04-15] MEDS: BARICITINIB (EUA) 2 MG TABLET PO SCH (09:40)
[2020-04-15] MEDS: METOPROLOL TARTRATE 25 MG TAB PO SCH ×2 (09:40→22:42)
[2020-04-15] MEDS: DEXAMETHASONE SOD PHOSPHATE 4 MG/ML 1ML VIAL IVP SCH (09:40)
[2020-04-15] MEDS: ZINC SULFATE 220 CAPSULE PO SCH (09:41)
[2020-04-15] MEDS: FAMOTIDINE 20MG TAB PO SCH ×2 (09:41→22:43)
[2020-04-15] MEDS: ENOXAPARIN SODIUM 40 MG/0.4 ML SYRINGE SQ SCH ×2 (09:41→22:45)
[2020-04-15 10:13] LABS: BASOPHILS % (AUTO) 0.6 % (0.0-5.0); EOSINOPHILS % (AUTO) 1.3 % (0.0-8.0); HEMATOCRIT 36.1 % (42-54); LYMPHOCYTES % (AUTO) 10.1 % (21.0-51.0); MEAN CORPUSCULAR HEMOGLOBIN 25.4 pg (27.0-33.0); MEAN CORPUSCULAR HGB CONC 30.7 g/dL (32.0-36.0); MEAN CORPUSCULAR VOLUME 82.6 fL (79-99); NEUTROPHILS % (AUTO) 76.1 % (40.0-77.0); NUCLEATED RED BLOOD CELLS 0.2 % (0.0-0.19); PLATELET COUNT (AUTO) 543 K/uL (130-400); RED BLOOD CELL COUNT(AUTO) 4.37 MIL/uL (4.50-6.20); RED CELL DISTRIBUTION WIDTH 23.8 % (11.0-15.5)
[2020-04-15 10:20] LABS: CREATININE 0.9 mg/dL (0.5-1.5); POTASSIUM 4.6 mmol/L (3.5-5.1)
[2020-04-15] MEDS: PROPOFOL 1000 MG/100 ML 100 ML IV SCH (12:03)
[2020-04-16] VITALS (18 sets, daily range): BP systolic 93–211; BP diastolic 46–106
[2020-04-16] MEDS: FENTANYL 2500MCG+NS 250ML 250 ML IV SCH ×2 (02:14→04:24)
[2020-04-16] MEDS: MEROPENEM 1 GM VIAL IVP SCH ×3 (02:28→18:09)
[2020-04-16] MEDS: PROPOFOL 1000 MG/100 ML 100 ML IV SCH ×3 (04:28→18:11)
[2020-04-16] MEDS: ALBUTEROL 0.083% 2.5 MG/3 ML INH IH SCH (06:00)
[2020-04-16 06:37] LABS: BASOPHILS % (AUTO) 0.3 % (0.0-5.0); EOSINOPHILS % (AUTO) 2.6 % (0.0-8.0); HEMATOCRIT 30.7 % (42-54); LYMPHOCYTES % (AUTO) 28.5 % (21.0-51.0); MEAN CORPUSCULAR HEMOGLOBIN 24.8 pg (27.0-33.0); MEAN CORPUSCULAR HGB CONC 30.9 g/dL (32.0-36.0); MEAN CORPUSCULAR VOLUME 80.2 fL (79-99); MONOCYTES % (AUTO) 6.5 % (3.0-13.0); NEUTROPHILS % (AUTO) 57.3 % (40.0-77.0); PLATELET COUNT (AUTO) 561 K/uL (130-400); RED BLOOD CELL COUNT(AUTO) 3.83 MIL/uL (4.50-6.20); WHITE BLOOD COUNT (AUTO) 10.1 K/uL (4.8-10.8)
[2020-04-16 06:44] LABS: CREATININE 0.9 mg/dL (0.5-1.5); CRP QUANTITATIVE 57.9 mg/L (0.00-9.0); MAGNESIUM 1.8 mg/dL (1.80-2.40); POTASSIUM 4.5 mmol/L (3.5-5.1)
[2020-04-16] MEDS: ASCORBIC ACID 500 MG TAB PO SCH ×2 (06:51→13:15)
[2020-04-16] MEDS: LEVOTHYROXINE 125 MCG TABLET PO SCH (06:52)
[2020-04-16] MEDS: ALBUTEROL INHALER 90MCG/INH IH SCH ×2 (07:49→14:00)
[2020-04-16] MEDS: VECURONIUM 50MG/NS 50ML IV SCH ×2 (07:54)
[2020-04-16] MEDS: ACYCLOVIR 800 MG TABLET PO SCH ×3 (08:58→18:12)
[2020-04-16] MEDS: FAMOTIDINE 20MG TAB PO SCH ×2 (08:58→21:36)
[2020-04-16] MEDS: METOPROLOL TARTRATE 25 MG TAB PO SCH ×2 (08:58→21:36)
[2020-04-16] MEDS: ZINC SULFATE 220 CAPSULE PO SCH (08:58)
[2020-04-16] MEDS: DEXAMETHASONE SOD PHOSPHATE 4 MG/ML 1ML VIAL IVP SCH (08:59)
[2020-04-16 12:47] LABS: BASOPHILS % (AUTO) 0.4 % (0.0-5.0); EOSINOPHILS % (AUTO) 1.8 % (0.0-8.0); HEMATOCRIT 36.1 % (42-54); LYMPHOCYTES % (AUTO) 12.6 % (21.0-51.0); MEAN CORPUSCULAR VOLUME 80.6 fL (79-99); MONOCYTES % (AUTO) 3.2 % (3.0-13.0); NEUTROPHILS % (AUTO) 77.3 % (40.0-77.0); NUCLEATED RED BLOOD CELLS 0.1 % (0.0-0.19); PLATELET COUNT (AUTO) 338 K/uL (130-400); RED BLOOD CELL COUNT(AUTO) 4.48 MIL/uL (4.50-6.20); RED CELL DISTRIBUTION WIDTH 22.8 % (11.0-15.5); WHITE BLOOD COUNT (AUTO) 13.4 K/uL (4.8-10.8)
[2020-04-16] MEDS: VERAPAMIL HCL 80 MG TABLET PO SCH ×2 (13:09→21:50)
[2020-04-16] MEDS: BARICITINIB (EUA) 2 MG TABLET PO SCH (13:09)
[2020-04-16] MEDS: KETAMINE IV SCH (13:09)
[2020-04-16] MEDS: NACL 0.9% IV SCH (13:09)
[2020-04-16] MEDS: PANTOPRAZOLE 40 MG/VIAL IVP SCH ×2 (13:11→21:36)
[2020-04-16 15:14] LABS: ABG BASE EXCESS 1.2 mmol/L (-2.0-3.0); ABG HCO3 28.5 mmol/L (21.0-28.0); ABG OXYGEN SATURATION 93.8 % (95.0-99.0); ABG PCO2 56 mmHg (35-48)
[2020-04-16] MEDS: BALSAM PERU/CASTOR OIL 60 GM TUBE TP SCH ×2 (18:09→21:51)
[2020-04-17] VITALS (25 sets, daily range): BP systolic 70–194; BP diastolic 37–104
[2020-04-17] MEDS: ASCORBIC ACID 500 MG TAB PO SCH ×4 (01:00→22:11)
[2020-04-17] MEDS: ACYCLOVIR 800 MG TABLET PO SCH ×6 (01:00→22:11)
[2020-04-17] MEDS: MEROPENEM 1 GM VIAL IVP SCH ×3 (01:00→18:41)
[2020-04-17] MEDS: VECURONIUM 50MG/NS 50ML IV SCH ×4 (05:11→13:58)
[2020-04-17] MEDS: NACL 0.9% IV SCH (05:12)
[2020-04-17] MEDS: KETAMINE IV SCH (05:12)
[2020-04-17] MEDS: FENTANYL 2500MCG+NS 250ML 250 ML IV SCH (05:13)
[2020-04-17 05:49] LABS: CREATININE 0.8 mg/dL (0.5-1.5); CRP QUANTITATIVE 31.6 mg/L (0.00-9.0); POTASSIUM 4.6 mmol/L (3.5-5.1); THYROID STIMULATING HORMONE 4.41 uIU/mL (0.36-3.74)
[2020-04-17] MEDS: LEVOTHYROXINE 125 MCG TABLET PO SCH (06:17)
[2020-04-17 07:39] LABS: ABG BASE EXCESS 3.8 mmol/L (-2.0-3.0); ABG HCO3 30.7 mmol/L (21.0-28.0); ABG OXYGEN SATURATION 95.3 % (95.0-99.0); ABG PCO2 55 mmHg (35-48)
[2020-04-17] MEDS: PANTOPRAZOLE 40 MG/VIAL IVP SCH ×2 (09:45→22:10)
[2020-04-17] MEDS: SOLU-MEDROL 125MG VIAL IVP SCH (09:45)
[2020-04-17] MEDS: VERAPAMIL HCL 80 MG TABLET PO SCH ×3 (09:46→22:10)
[2020-04-17] MEDS: ZINC SULFATE 220 CAPSULE PO SCH (09:46)
[2020-04-17] MEDS: BARICITINIB (EUA) 2 MG TABLET PO SCH (09:46)
[2020-04-17] MEDS: METOPROLOL TARTRATE 25 MG TAB PO SCH (09:46)
[2020-04-17] MEDS: FAMOTIDINE 20MG TAB PO SCH (09:46)
[2020-04-17] MEDS: BALSAM PERU/CASTOR OIL 60 GM TUBE TP SCH ×3 (09:47→22:11)
[2020-04-17] MEDS ORDERED: ENOXAPARIN SODIUM 40 MG/0.4 ML SYRINGE SQ ONE (09:55)
[2020-04-17] MEDS: ENOXAPARIN SODIUM 40 MG/0.4 ML SYRINGE SQ SCH ×2 (10:01→21:00)
[2020-04-17] MEDS: PROPOFOL 1000 MG/100 ML 100 ML IV SCH ×2 (12:02→15:59)
[2020-04-17] MEDS ORDERED: HYDRALAZINE 20MG/ML VIAL IV PRN (14:00)
[2020-04-17 15:20] LABS: ABG BASE EXCESS 5.3 mmol/L (-2.0-3.0); ABG HCO3 33.8 mmol/L (21.0-28.0); ABG OXYGEN SATURATION 96.2 % (95.0-99.0); ABG PCO2 67 mmHg (35-48)
[2020-04-17] MEDS: AMLODIPINE 5 MG TAB PO SCH (15:57)
[2020-04-17] MEDS ORDERED: MIDAZOLAM 100MG-0.9% NS 100ML 100ML BAG IV PRN ×2 (17:15→18:15)
[2020-04-17] MEDS ORDERED: MIDAZOLAM 100MG-0.9% NS 100ML 100 ML IV SCH (17:45)
[2020-04-18] VITALS (23 sets, daily range): BP systolic 84–192; BP diastolic 38–83
[2020-04-18] MEDS: MEROPENEM 1 GM VIAL IVP SCH ×3 (02:54→17:49)
[2020-04-18] MEDS: PROPOFOL 1000 MG/100 ML 100 ML IV SCH ×3 (04:23→15:50)
[2020-04-18] MEDS: KETAMINE IV SCH ×2 (04:32→07:32)
[2020-04-18] MEDS: VECURONIUM 50MG/NS 50ML IV SCH ×6 (04:32→18:26)
[2020-04-18] MEDS: NACL 0.9% IV SCH ×2 (04:32→07:32)
[2020-04-18] MEDS: INSULIN REGULAR, HUMAN 3ML 100 UNIT in 0.9%NACL 100ML 99 ML IV PRN ×2 (04:34)
[2020-04-18 04:48] LABS: BASOPHILS % (AUTO) 0.4 % (0.0-5.0); EOSINOPHILS % (AUTO) 0.8 % (0.0-8.0); HEMATOCRIT 29.6 % (42-54); LYMPHOCYTES % (AUTO) 26.1 % (21.0-51.0); MEAN CORPUSCULAR HEMOGLOBIN 24.8 pg (27.0-33.0); MEAN CORPUSCULAR HGB CONC 31.1 g/dL (32.0-36.0); MEAN CORPUSCULAR VOLUME 79.8 fL (79-99); MONOCYTES % (AUTO) 4.9 % (3.0-13.0); NEUTROPHILS % (AUTO) 65.9 % (40.0-77.0); PLATELET COUNT (AUTO) 590 K/uL (130-400); RED BLOOD CELL COUNT(AUTO) 3.71 MIL/uL (4.50-6.20); RED CELL DISTRIBUTION WIDTH 22.6 % (11.0-15.5); WHITE BLOOD COUNT (AUTO) 9.6 K/uL (4.8-10.8)
[2020-04-18 05:07] LABS: CREATININE 0.8 mg/dL (0.5-1.5); CRP QUANTITATIVE 17.8 mg/L (0.00-9.0)
[2020-04-18] MEDS: ACYCLOVIR 800 MG TABLET PO SCH ×5 (05:42→22:30)
[2020-04-18] MEDS: ASCORBIC ACID 500 MG TAB PO SCH ×3 (05:42→22:30)
[2020-04-18] MEDS: LEVOTHYROXINE 125 MCG TABLET PO SCH (05:42)
[2020-04-18 06:14] LABS: ABG BASE EXCESS 3.7 mmol/L (-2.0-3.0); ABG HCO3 28.5 mmol/L (21.0-28.0); ABG OXYGEN SATURATION 97.8 % (95.0-99.0); ABG PCO2 44 mmHg (35-48)
[2020-04-18] MEDS: VERAPAMIL HCL 80 MG TABLET PO SCH ×2 (08:28→14:00)
[2020-04-18] MEDS: AMLODIPINE 5 MG TAB PO SCH (08:29)
[2020-04-18] MEDS: ZINC SULFATE 220 CAPSULE PO SCH (08:44)
[2020-04-18] MEDS: PANTOPRAZOLE 40 MG/VIAL IVP SCH ×2 (08:45→22:30)
[2020-04-18] MEDS: SOLU-MEDROL 125MG VIAL IVP SCH (08:45)
[2020-04-18] MEDS: BALSAM PERU/CASTOR OIL 60 GM TUBE TP SCH ×3 (08:59→22:30)
[2020-04-18] MEDS: ENOXAPARIN SODIUM 40 MG/0.4 ML SYRINGE SQ SCH (09:00)
[2020-04-18] MEDS ORDERED: ENOXAPARIN SODIUM 40 MG/0.4 ML SYRINGE SQ ONE (09:07)
[2020-04-18] MEDS: BARICITINIB (EUA) 2 MG TABLET PO SCH (09:12)
[2020-04-18] MEDS ORDERED: FENTANYL CITRATE PF 0.05 MG/ML 1,000 MCG in 0.9%NACL 100ML 100 ML IVPB SCH (12:00)
[2020-04-18] MEDS: MIDAZOLAM 100MG-0.9% NS 100ML 100 ML IV NR (13:05)
[2020-04-19] VITALS (23 sets, daily range): BP systolic 88–184; BP diastolic 43–82
[2020-04-19] MEDS: MEROPENEM 1 GM VIAL IVP SCH ×3 (03:28→17:59)
[2020-04-19] MEDS ORDERED: LEVOTHYROXINE 150 MCG TABLET ONE (04:05)
[2020-04-19 05:55] LABS: BASOPHILS % (AUTO) 0.4 % (0.0-5.0); EOSINOPHILS % (AUTO) 1.4 % (0.0-8.0); HEMATOCRIT 29.6 % (42-54); LYMPHOCYTES % (AUTO) 25.9 % (21.0-51.0); MEAN CORPUSCULAR HEMOGLOBIN 25.3 pg (27.0-33.0); MEAN CORPUSCULAR HGB CONC 31.1 g/dL (32.0-36.0); MEAN CORPUSCULAR VOLUME 81.5 fL (79-99); MONOCYTES % (AUTO) 4.8 % (3.0-13.0); NEUTROPHILS % (AUTO) 66.2 % (40.0-77.0); PLATELET COUNT (AUTO) 639 K/uL (130-400); RED BLOOD CELL COUNT(AUTO) 3.63 MIL/uL (4.50-6.20); RED CELL DISTRIBUTION WIDTH 22.2 % (11.0-15.5); WHITE BLOOD COUNT (AUTO) 10.2 K/uL (4.8-10.8)
[2020-04-19 06:21] LABS: ALBUMIN 1.9 g/dL (3.5-5.0); BILIRUBIN,TOTAL 0.2 mg/dL (0.2-1.0); CREATININE 0.7 mg/dL (0.5-1.5); CRP QUANTITATIVE 15.1 mg/L (0.00-9.0); POTASSIUM 4.1 mmol/L (3.5-5.1); TOTAL PROTEIN, SERUM 6.4 g/dL (6.0-8.3)
[2020-04-19] MEDS: LEVOTHYROXINE 150 MCG TABLET PO SCH (06:48)
[2020-04-19] MEDS: ACYCLOVIR 800 MG TABLET PO SCH ×4 (06:48→17:59)
[2020-04-19] MEDS: ASCORBIC ACID 500 MG TAB PO SCH ×2 (06:48→16:06)
[2020-04-19 07:37] LABS: ABG BASE EXCESS 5.3 mmol/L (-2.0-3.0); ABG HCO3 31.3 mmol/L (21.0-28.0); ABG OXYGEN SATURATION 91.3 % (95.0-99.0); ABG PCO2 51 mmHg (35-48)
[2020-04-19] MEDS: NACL 0.9% IV SCH (09:30)
[2020-04-19] MEDS: KETAMINE IV SCH (09:30)
[2020-04-19] MEDS: PANTOPRAZOLE 40 MG/VIAL IVP SCH ×2 (10:01→21:39)
[2020-04-19] MEDS: ZINC SULFATE 220 CAPSULE PO SCH (10:01)
[2020-04-19] MEDS: BARICITINIB (EUA) 2 MG TABLET PO SCH (10:02)
[2020-04-19] MEDS: SOLU-MEDROL 125MG VIAL IVP SCH (10:06)
[2020-04-19] MEDS: BALSAM PERU/CASTOR OIL 60 GM TUBE TP SCH ×3 (10:06→21:41)
[2020-04-19] MEDS: VECURONIUM 50MG/NS 50ML IV SCH ×2 (12:39)
[2020-04-19] MEDS: PROPOFOL 1000 MG/100 ML 100 ML IV SCH ×2 (12:43→16:20)
[2020-04-19] MEDS ORDERED: PHARMACY COMMUNICATION MISC PRN (14:00)
[2020-04-19] MEDS ORDERED: PHARMACY COMMUNICATION MISC STA (14:00)
[2020-04-19] MEDS ORDERED: FENTANYL 2500MCG+NS 250ML 250 ML IV ONE (14:28)
[2020-04-19] MEDS ORDERED: VECURONIUM 10MG/10ML IV PRN (14:45)
[2020-04-19] MEDS: CISATRACURIUM BESYLATE 100 MG in 0.9%NACL 100ML 100 ML IV SCH (16:18)
[2020-04-20] VITALS (25 sets, daily range): BP systolic 101–146; BP diastolic 47–90
[2020-04-20] MEDS: ASCORBIC ACID 500 MG TAB PO SCH ×4 (02:28→23:00)
[2020-04-20] MEDS: MEROPENEM 1 GM VIAL IVP SCH ×3 (02:29→19:43)
[2020-04-20] MEDS: ACYCLOVIR 800 MG TABLET PO SCH ×6 (02:29→23:12)
[2020-04-20 04:56] LABS: BASOPHILS % (AUTO) 0.6 % (0.0-5.0); EOSINOPHILS % (AUTO) 1.3 % (0.0-8.0); HEMATOCRIT 28.5 % (42-54); MEAN CORPUSCULAR HEMOGLOBIN 25.4 pg (27.0-33.0); MEAN CORPUSCULAR HGB CONC 31.2 g/dL (32.0-36.0); MEAN CORPUSCULAR VOLUME 81.2 fL (79-99); NEUTROPHILS % (AUTO) 62.3 % (40.0-77.0); PLATELET COUNT (AUTO) 620 K/uL (130-400); RED BLOOD CELL COUNT(AUTO) 3.51 MIL/uL (4.50-6.20); RED CELL DISTRIBUTION WIDTH 22.2 % (11.0-15.5); WHITE BLOOD COUNT (AUTO) 8.9 K/uL (4.8-10.8)
[2020-04-20 05:01] LABS: CREATININE 0.7 mg/dL (0.5-1.5)
[2020-04-20 05:27] LABS: ABG BASE EXCESS 5.4 mmol/L (-2.0-3.0); ABG OXYGEN SATURATION 94.2 % (95.0-99.0); ABG PCO2 44 mmHg (35-48)
[2020-04-20] MEDS: LEVOTHYROXINE 150 MCG TABLET PO SCH (07:04)
[2020-04-20] MEDS: ALBUTEROL INHALER 90MCG/INH IH SCH ×8 (07:50→22:00)
[2020-04-20] MEDS: ZINC SULFATE 220 CAPSULE PO SCH (08:13)
[2020-04-20] MEDS: BARICITINIB (EUA) 2 MG TABLET PO SCH (08:13)
[2020-04-20] MEDS: SOLU-MEDROL 125MG VIAL IVP SCH (08:14)
[2020-04-20] MEDS: BALSAM PERU/CASTOR OIL 60 GM TUBE TP SCH ×3 (08:14→21:00)
[2020-04-20] MEDS: PANTOPRAZOLE 40 MG/VIAL IVP SCH ×2 (08:14→21:00)
[2020-04-20] MEDS: PROPOFOL 1000 MG/100 ML 100 ML IV SCH (10:01)
[2020-04-20] MEDS ORDERED: FENTANYL 2500MCG+NS 250ML 250 ML IV ONE (10:10)
[2020-04-20] MEDS ORDERED: FUROSEMIDE 40MG VIAL IVP SCH (12:00)
[2020-04-20] MEDS: SUCRALFATE 1 GM TABLET NG SCH ×2 (15:52→19:44)
[2020-04-20] MEDS: MIDAZOLAM 100MG-0.9% NS 100ML 100 ML IV NR (16:19)
[2020-04-20] MEDS: FUROSEMIDE 40MG VIAL IVP SCH (21:00)
[2020-04-21] VITALS (53 sets, daily range): BP systolic 90–159; BP diastolic 52–77
[2020-04-21] MEDS: MEROPENEM 1 GM VIAL IVP SCH ×3 (04:12→17:22)
[2020-04-21] MEDS: SUCRALFATE 1 GM TABLET NG SCH ×4 (04:12→17:22)
[2020-04-21] MEDS: ALBUTEROL INHALER 90MCG/INH IH SCH ×3 (06:00→22:04)
[2020-04-21] MEDS: ASCORBIC ACID 500 MG TAB PO SCH ×3 (08:15→22:45)
[2020-04-21] MEDS: ACYCLOVIR 800 MG TABLET PO SCH ×5 (08:15→22:45)
[2020-04-21] MEDS: FUROSEMIDE 40MG VIAL IVP SCH ×2 (08:15→21:15)
[2020-04-21] MEDS: LEVOTHYROXINE 150 MCG TABLET PO SCH (08:15)
[2020-04-21] MEDS: BARICITINIB (EUA) 2 MG TABLET PO SCH (08:15)
[2020-04-21] MEDS: ZINC SULFATE 220 CAPSULE PO SCH (08:15)
[2020-04-21] MEDS: PANTOPRAZOLE 40 MG/VIAL IVP SCH ×2 (08:16→21:14)
[2020-04-21] MEDS: BALSAM PERU/CASTOR OIL 60 GM TUBE TP SCH ×3 (08:16→21:14)
[2020-04-21] MEDS: SOLU-MEDROL 125MG VIAL IVP SCH (08:16)
[2020-04-21 08:47] LABS: BASOPHILS % (AUTO) 0.4 % (0.0-5.0); EOSINOPHILS % (AUTO) 1.6 % (0.0-8.0); HEMATOCRIT 28.6 % (42-54); LYMPHOCYTES % (AUTO) 26.3 % (21.0-51.0); MEAN CORPUSCULAR HEMOGLOBIN 25.2 pg (27.0-33.0); MEAN CORPUSCULAR HGB CONC 31.5 g/dL (32.0-36.0); MEAN CORPUSCULAR VOLUME 80.1 fL (79-99); MONOCYTES % (AUTO) 5.2 % (3.0-13.0); NEUTROPHILS % (AUTO) 65.3 % (40.0-77.0); PLATELET COUNT (AUTO) 576 K/uL (130-400); RED BLOOD CELL COUNT(AUTO) 3.57 MIL/uL (4.50-6.20); RED CELL DISTRIBUTION WIDTH 22.5 % (11.0-15.5); WHITE BLOOD COUNT (AUTO) 11.6 K/uL (4.8-10.8)
[2020-04-21 09:02] LABS: CREATININE 0.8 mg/dL (0.5-1.5); CRP QUANTITATIVE 15.2 mg/L (0.00-9.0); POTASSIUM 3.8 mmol/L (3.5-5.1)
[2020-04-21 10:19] LABS: ABG BASE EXCESS 3.9 mmol/L (-2.0-3.0); ABG HCO3 28.7 mmol/L (21.0-28.0); ABG OXYGEN SATURATION 76.4 % (95.0-99.0); ABG PCO2 44 mmHg (35-48)
[2020-04-21 10:28] LABS: ABG BASE EXCESS 4.7 mmol/L (-2.0-3.0); ABG HCO3 28.7 mmol/L (21.0-28.0); ABG OXYGEN SATURATION 96.2 % (95.0-99.0); ABG PCO2 40 mmHg (35-48)
[2020-04-21] MEDS: CISATRACURIUM BESYLATE 100 MG in 0.9%NACL 100ML 100 ML IV SCH (11:53)
[2020-04-21] MEDS: PROPOFOL 1000 MG/100 ML 100 ML IV SCH ×3 (11:55→19:50)
[2020-04-21] MEDS: MIDAZOLAM 100MG-0.9% NS 100ML 100 ML IV NR ×2 (11:56→19:48)
[2020-04-21] MEDS ORDERED: FENTANYL 2500MCG+NS 250ML 250 ML IV ONE (14:32)
[2020-04-21] MEDS: KETAMINE IV SCH (16:20)
[2020-04-21] MEDS: NACL 0.9% IV SCH (16:20)
[2020-04-22] VITALS (49 sets, daily range): BP systolic 102–173; BP diastolic 52–89
[2020-04-22] MEDS: KETAMINE IV SCH ×2 (00:10→09:44)
[2020-04-22] MEDS: NACL 0.9% IV SCH ×2 (00:10→09:44)
[2020-04-22] MEDS: SUCRALFATE 1 GM TABLET NG SCH ×5 (00:11→23:18)
[2020-04-22] MEDS: MEROPENEM 1 GM VIAL IVP SCH ×3 (02:34→17:43)
[2020-04-22] MEDS: MIDAZOLAM 100MG-0.9% NS 100ML 100 ML IV NR ×2 (03:13→20:48)
[2020-04-22] MEDS: PROPOFOL 1000 MG/100 ML 100 ML IV SCH ×3 (03:13→17:46)
[2020-04-22 05:03] LABS: ALBUMIN 1.8 g/dL (3.5-5.0); BILIRUBIN,TOTAL 0.3 mg/dL (0.2-1.0); CREATININE 0.7 mg/dL (0.5-1.5); MAGNESIUM 1.6 mg/dL (1.80-2.40); POTASSIUM 3.1 mmol/L (3.5-5.1); TOTAL PROTEIN, SERUM 5.9 g/dL (6.0-8.3)
[2020-04-22] MEDS: ALBUTEROL INHALER 90MCG/INH IH SCH (05:32)
[2020-04-22] MEDS: POTASSIUM CHLORIDE 10% ELIXIR 20 MEQ/15 ML UDCUP PO PRN ×2 (06:06→08:52)
[2020-04-22] MEDS: FUROSEMIDE 40MG VIAL IVP SCH ×3 (06:07→21:08)
[2020-04-22] MEDS: ASCORBIC ACID 500 MG TAB PO SCH ×3 (06:07→23:00)
[2020-04-22] MEDS: ACYCLOVIR 800 MG TABLET PO SCH ×5 (06:07→23:18)
[2020-04-22] MEDS: LEVOTHYROXINE 150 MCG TABLET PO SCH (06:07)
[2020-04-22 07:14] LABS: ABG BASE EXCESS 6.2 mmol/L (-2.0-3.0); ABG HCO3 28.2 mmol/L (21.0-28.0); ABG OXYGEN SATURATION 95.1 % (95.0-99.0); ABG PCO2 33 mmHg (35-48)
[2020-04-22] MEDS: SOLU-MEDROL 125MG VIAL IVP SCH (08:51)
[2020-04-22] MEDS: PANTOPRAZOLE 40 MG/VIAL IVP SCH ×2 (08:51→21:07)
[2020-04-22] MEDS: BARICITINIB (EUA) 2 MG TABLET PO SCH (08:52)
[2020-04-22] MEDS: BALSAM PERU/CASTOR OIL 60 GM TUBE TP SCH ×3 (08:52→21:07)
[2020-04-22] MEDS: ZINC SULFATE 220 CAPSULE PO SCH (08:52)
[2020-04-22] MEDS: MAGNESIUM 2GM PREMIX 50ML 50 ML IV SCH (11:50)
[2020-04-22] MEDS ORDERED: FENTANYL CITRATE PF 0.05 MG/ML 1,000 MCG in 0.9%NACL 100ML 250 ML IVPB SCH (12:00)
[2020-04-22] MEDS: FENTANYL 2500MCG+NS 250ML 250 ML IV SCH (17:52)
[2020-04-23] VITALS (66 sets, daily range): BP systolic 83–151; BP diastolic 46–80
[2020-04-23] MEDS: MEROPENEM 1 GM VIAL IVP SCH ×3 (03:19→18:10)
[2020-04-23 04:32] LABS: BASOPHILS % (AUTO) 0.9 % (0.0-5.0); EOSINOPHILS % (AUTO) 3.7 % (0.0-8.0); HEMATOCRIT 28.8 % (42-54); LYMPHOCYTES % (AUTO) 36.5 % (21.0-51.0); MEAN CORPUSCULAR HGB CONC 32.6 g/dL (32.0-36.0); MEAN CORPUSCULAR VOLUME 79.6 fL (79-99); MONOCYTES % (AUTO) 3.2 % (3.0-13.0); NEUTROPHILS % (AUTO) 54.3 % (40.0-77.0); PLATELET COUNT (AUTO) 613 K/uL (130-400); RED BLOOD CELL COUNT(AUTO) 3.62 MIL/uL (4.50-6.20); RED CELL DISTRIBUTION WIDTH 22.9 % (11.0-15.5); WHITE BLOOD COUNT (AUTO) 9.2 K/uL (4.8-10.8)
[2020-04-23 05:15] LABS: ALBUMIN 1.9 g/dL (3.5-5.0); BILIRUBIN,TOTAL 0.2 mg/dL (0.2-1.0); CREATININE 0.8 mg/dL (0.5-1.5); CRP QUANTITATIVE 30.2 mg/L (0.00-9.0); POTASSIUM 3.3 mmol/L (3.5-5.1); TOTAL PROTEIN, SERUM 6.3 g/dL (6.0-8.3)
[2020-04-23] MEDS: ASCORBIC ACID 500 MG TAB PO SCH ×2 (06:11→12:28)
[2020-04-23] MEDS: LEVOTHYROXINE 150 MCG TABLET PO SCH (06:11)
[2020-04-23] MEDS: FUROSEMIDE 40MG VIAL IVP SCH ×2 (06:11→12:28)
[2020-04-23] MEDS: ACYCLOVIR 800 MG TABLET PO SCH ×4 (06:11→18:10)
[2020-04-23 06:53] LABS: ABG HCO3 32.3 mmol/L (21.0-28.0); ABG OXYGEN SATURATION 94.8 % (95.0-99.0); ABG PCO2 44 mmHg (35-48)
[2020-04-23] MEDS: SUCRALFATE 1 GM TABLET NG SCH ×3 (08:21→18:10)
[2020-04-23] MEDS: POTASSIUM CHLORIDE 10% ELIXIR 20 MEQ/15 ML UDCUP PO PRN ×3 (08:21→08:26)
[2020-04-23] MEDS: SOLU-MEDROL 125MG VIAL IVP SCH (08:21)
[2020-04-23] MEDS: ZINC SULFATE 220 CAPSULE PO SCH (08:21)
[2020-04-23] MEDS: PANTOPRAZOLE 40 MG/VIAL IVP SCH ×2 (08:22→21:37)
[2020-04-23] MEDS: BALSAM PERU/CASTOR OIL 60 GM TUBE TP SCH ×3 (08:22→21:37)
[2020-04-23] MEDS: BARICITINIB (EUA) 2 MG TABLET PO SCH (08:24)
[2020-04-23] MEDS: PROPOFOL 1000 MG/100 ML 100 ML IV SCH ×2 (10:41→15:37)
[2020-04-23] MEDS: KETAMINE IV SCH ×2 (10:45→18:49)
[2020-04-23] MEDS: NACL 0.9% IV SCH ×2 (10:45→18:49)
[2020-04-23] MEDS: MIDAZOLAM 100MG-0.9% NS 100ML 100 ML IV NR (18:11)
[2020-04-23] MEDS ORDERED: FUROSEMIDE 20MG VIAL IVP SCH (20:45)
[2020-04-23] MEDS ORDERED: FUROSEMIDE 40MG VIAL ONE (22:00)
[2020-04-24] VITALS (65 sets, daily range): BP systolic 97–149; BP diastolic 50–78
[2020-04-24] MEDS: ACYCLOVIR 800 MG TABLET PO SCH ×3 (01:08→11:00)
[2020-04-24] MEDS: SUCRALFATE 1 GM TABLET NG SCH ×4 (01:08→16:52)
[2020-04-24] MEDS: ASCORBIC ACID 500 MG TAB PO SCH ×4 (01:08→23:05)
[2020-04-24] MEDS: MEROPENEM 1 GM VIAL IVP SCH ×3 (04:59→16:51)
[2020-04-24 05:02] LABS: BASOPHILS % (AUTO) 0.9 % (0.0-5.0); EOSINOPHILS % (AUTO) 4.4 % (0.0-8.0); HEMATOCRIT 30.1 % (42-54); LYMPHOCYTES % (AUTO) 35.5 % (21.0-51.0); MEAN CORPUSCULAR HEMOGLOBIN 25.7 pg (27.0-33.0); MEAN CORPUSCULAR HGB CONC 31.6 g/dL (32.0-36.0); MEAN CORPUSCULAR VOLUME 81.6 fL (79-99); NEUTROPHILS % (AUTO) 51.7 % (40.0-77.0); PLATELET COUNT (AUTO) 574 K/uL (130-400); RED BLOOD CELL COUNT(AUTO) 3.69 MIL/uL (4.50-6.20); RED CELL DISTRIBUTION WIDTH 23.5 % (11.0-15.5); WHITE BLOOD COUNT (AUTO) 9.2 K/uL (4.8-10.8)
[2020-04-24 05:43] LABS: BILIRUBIN,TOTAL 0.2 mg/dL (0.2-1.0); CREATININE 0.7 mg/dL (0.5-1.5); CRP QUANTITATIVE 29.4 mg/L (0.00-9.0); MAGNESIUM 1.9 mg/dL (1.80-2.40); PHOSPHORUS 2.6 mg/dL (2.5-4.9); POTASSIUM 3.5 mmol/L (3.5-5.1); TOTAL PROTEIN, SERUM 6.7 g/dL (6.0-8.3)
[2020-04-24] MEDS: LEVOTHYROXINE 150 MCG TABLET PO SCH (06:03)
[2020-04-24] MEDS: PANTOPRAZOLE 40 MG/VIAL IVP SCH ×2 (08:52→21:39)
[2020-04-24] MEDS: SOLU-MEDROL 125MG VIAL IVP SCH (08:52)
[2020-04-24] MEDS: POTASSIUM CHLORIDE 10% ELIXIR 20 MEQ/15 ML UDCUP PO PRN (08:53)
[2020-04-24] MEDS: BALSAM PERU/CASTOR OIL 60 GM TUBE TP SCH ×3 (08:54→21:39)
[2020-04-24] MEDS: ZINC SULFATE 220 CAPSULE PO SCH (08:54)
[2020-04-24] MEDS: BARICITINIB (EUA) 2 MG TABLET PO SCH (08:54)
[2020-04-24 09:01] LABS: ABG BASE EXCESS 6.8 mmol/L (-2.0-3.0); ABG OXYGEN SATURATION 94.2 % (95.0-99.0); ABG PCO2 49 mmHg (35-48)
[2020-04-24] MEDS: PROPOFOL 1000 MG/100 ML 100 ML IV SCH ×2 (12:30→19:37)
[2020-04-24] MEDS: MIDAZOLAM 100MG-0.9% NS 100ML 100 ML IV NR (12:39)
[2020-04-25] VITALS (65 sets, daily range): BP systolic 94–200; BP diastolic 46–101
[2020-04-25] MEDS: PROPOFOL 1000 MG/100 ML 100 ML IV SCH ×4 (01:32→17:35)
[2020-04-25] MEDS: SUCRALFATE 1 GM TABLET NG SCH ×4 (01:44→17:39)
[2020-04-25] MEDS: MEROPENEM 1 GM VIAL IVP SCH ×3 (01:45→17:39)
[2020-04-25] MEDS: LEVOTHYROXINE 150 MCG TABLET PO SCH (06:06)
[2020-04-25] MEDS: ASCORBIC ACID 500 MG TAB PO SCH ×3 (06:06→22:27)
[2020-04-25 06:08] LABS: BASOPHILS % (AUTO) 0.9 % (0.0-5.0); EOSINOPHILS % (AUTO) 3.8 % (0.0-8.0); HEMATOCRIT 28.4 % (42-54); LYMPHOCYTES % (AUTO) 34.9 % (21.0-51.0); MEAN CORPUSCULAR HEMOGLOBIN 26.2 pg (27.0-33.0); MEAN CORPUSCULAR HGB CONC 31.7 g/dL (32.0-36.0); MEAN CORPUSCULAR VOLUME 82.6 fL (79-99); MONOCYTES % (AUTO) 6.5 % (3.0-13.0); NEUTROPHILS % (AUTO) 52.4 % (40.0-77.0); PLATELET COUNT (AUTO) 488 K/uL (130-400); RED BLOOD CELL COUNT(AUTO) 3.44 MIL/uL (4.50-6.20); RED CELL DISTRIBUTION WIDTH 23.5 % (11.0-15.5); WHITE BLOOD COUNT (AUTO) 8.5 K/uL (4.8-10.8)
[2020-04-25 06:27] LABS: ALBUMIN 1.9 g/dL (3.5-5.0); BILIRUBIN,TOTAL 0.2 mg/dL (0.2-1.0); CREATININE 0.6 mg/dL (0.5-1.5); POTASSIUM 3.8 mmol/L (3.5-5.1); TOTAL PROTEIN, SERUM 6.3 g/dL (6.0-8.3)
[2020-04-25] MEDS: BARICITINIB (EUA) 2 MG TABLET PO SCH (09:22)
[2020-04-25] MEDS: HYDRALAZINE 25MG TABLET PO PRN (09:22)
[2020-04-25] MEDS: ZINC SULFATE 220 CAPSULE PO SCH (09:23)
[2020-04-25] MEDS: PANTOPRAZOLE 40 MG/VIAL IVP SCH ×2 (09:23→22:27)
[2020-04-25] MEDS: BALSAM PERU/CASTOR OIL 60 GM TUBE TP SCH ×2 (09:23→13:31)
[2020-04-25] MEDS ORDERED: IPRATROPIUM/ALBUTEROL SULFATE 3 ML SOLUTION IH SCH (14:00)
[2020-04-26] VITALS (93 sets, daily range): BP systolic 97–190; BP diastolic 50–115
[2020-04-26] MEDS: MEROPENEM 1 GM VIAL IVP SCH ×3 (01:35→17:38)
[2020-04-26] MEDS: SUCRALFATE 1 GM TABLET NG SCH ×4 (01:35→19:31)
[2020-04-26 04:49] LABS: BASOPHILS % (AUTO) 0.7 % (0.0-5.0); HEMATOCRIT 30.2 % (42-54); LYMPHOCYTES % (AUTO) 26.5 % (21.0-51.0); MEAN CORPUSCULAR HGB CONC 32.8 g/dL (32.0-36.0); MEAN CORPUSCULAR VOLUME 82.5 fL (79-99); MONOCYTES % (AUTO) 6.2 % (3.0-13.0); NEUTROPHILS % (AUTO) 59.8 % (40.0-77.0); PLATELET COUNT (AUTO) 503 K/uL (130-400); RED BLOOD CELL COUNT(AUTO) 3.66 MIL/uL (4.50-6.20); WHITE BLOOD COUNT (AUTO) 8.3 K/uL (4.8-10.8)
[2020-04-26 04:59] LABS: BILIRUBIN,TOTAL 0.3 mg/dL (0.2-1.0); CREATININE 0.5 mg/dL (0.5-1.5); POTASSIUM 3.7 mmol/L (3.5-5.1); TOTAL PROTEIN, SERUM 6.2 g/dL (6.0-8.3)
[2020-04-26] MEDS: LEVOTHYROXINE 150 MCG TABLET PO SCH (06:37)
[2020-04-26] MEDS: ASCORBIC ACID 500 MG TAB PO SCH ×3 (06:38→23:46)
[2020-04-26] MEDS: ZINC SULFATE 220 CAPSULE PO SCH (08:40)
[2020-04-26] MEDS: PANTOPRAZOLE 40 MG/VIAL IVP SCH ×2 (08:40→20:05)
[2020-04-26] MEDS: ENOXAPARIN SODIUM 40 MG/0.4 ML SYRINGE SQ SCH (08:40)
[2020-04-26] MEDS: BARICITINIB (EUA) 2 MG TABLET PO SCH (08:43)
[2020-04-26] MEDS: NACL 0.9% IV SCH ×2 (10:23→22:00)
[2020-04-26] MEDS: KETAMINE IV SCH ×2 (10:23→22:00)
[2020-04-26] MEDS: PROPOFOL 1000 MG/100 ML 100 ML IV SCH ×3 (11:55→18:42)
[2020-04-26] MEDS: ALBUTEROL INHALER 90MCG/INH IH SCH ×2 (14:51→22:00)
[2020-04-26] MEDS: FENTANYL 2500MCG+NS 250ML 250 ML IV SCH (15:39)
[2020-04-27] VITALS (67 sets, daily range): BP systolic 106–222; BP diastolic 45–107
[2020-04-27] MEDS: PROPOFOL 1000 MG/100 ML 100 ML IV SCH ×5 (00:07→20:14)
[2020-04-27] MEDS: MEROPENEM 1 GM VIAL IVP SCH ×4 (02:28→17:43)
[2020-04-27] MEDS: SUCRALFATE 1 GM TABLET NG SCH ×4 (02:32→17:45)
[2020-04-27 03:48] LABS: ABG HCO3 31.6 mmol/L (21.0-28.0); ABG OXYGEN SATURATION 96.3 % (95.0-99.0); ABG PCO2 49 mmHg (35-48)
[2020-04-27 04:33] LABS: BASOPHILS % (AUTO) 0.5 % (0.0-5.0); EOSINOPHILS % (AUTO) 9.2 % (0.0-8.0); HEMATOCRIT 27.6 % (42-54); LYMPHOCYTES % (AUTO) 24.6 % (21.0-51.0); MEAN CORPUSCULAR HEMOGLOBIN 26.3 pg (27.0-33.0); MEAN CORPUSCULAR HGB CONC 31.9 g/dL (32.0-36.0); MEAN CORPUSCULAR VOLUME 82.6 fL (79-99); MONOCYTES % (AUTO) 7.8 % (3.0-13.0); PLATELET COUNT (AUTO) 450 K/uL (130-400); RED BLOOD CELL COUNT(AUTO) 3.34 MIL/uL (4.50-6.20); RED CELL DISTRIBUTION WIDTH 22.8 % (11.0-15.5); WHITE BLOOD COUNT (AUTO) 7.7 K/uL (4.8-10.8)
[2020-04-27 04:49] LABS: ALBUMIN 1.8 g/dL (3.5-5.0); BILIRUBIN,TOTAL 0.3 mg/dL (0.2-1.0); CREATININE 0.4 mg/dL (0.5-1.5); MAGNESIUM 1.8 mg/dL (1.80-2.40); PHOSPHORUS 2.1 mg/dL (2.5-4.9); POTASSIUM 3.5 mmol/L (3.5-5.1); TOTAL PROTEIN, SERUM 5.7 g/dL (6.0-8.3)
[2020-04-27] MEDS: LEVOTHYROXINE 150 MCG TABLET PO SCH (05:35)
[2020-04-27] MEDS: ALBUTEROL INHALER 90MCG/INH IH SCH (05:36)
[2020-04-27] MEDS: ASCORBIC ACID 500 MG TAB PO SCH ×3 (05:36→23:40)
[2020-04-27] MEDS: POTASSIUM CHLORIDE 10% ELIXIR 20 MEQ/15 ML UDCUP PO PRN ×2 (08:35→08:42)
[2020-04-27] MEDS: ZINC SULFATE 220 CAPSULE PO SCH (08:35)
[2020-04-27] MEDS: PANTOPRAZOLE 40 MG/VIAL IVP SCH ×2 (08:35→21:13)
[2020-04-27] MEDS: ENOXAPARIN SODIUM 40 MG/0.4 ML SYRINGE SQ SCH (08:36)
[2020-04-27] MEDS: MAGNESIUM 2GM PREMIX 50ML 50 ML IV SCH (08:43)
[2020-04-27] MEDS: ENOXAPARIN SODIUM 100 MG/1 ML SQ SCH ×2 (09:15→21:12)
[2020-04-27] MEDS ORDERED: PHARMACY COMMUNICATION MISC SCH ×2 (09:15→21:00)
[2020-04-27] MEDS: BARICITINIB (EUA) 2 MG TABLET PO SCH (13:21)
[2020-04-27] MEDS ORDERED: FENTANYL 2500MCG+NS 250ML 250 ML IV SCH (21:00)
[2020-04-28] VITALS (61 sets, daily range): BP systolic 88–197; BP diastolic 44–95
[2020-04-28] MEDS: SUCRALFATE 1 GM TABLET NG SCH ×4 (01:23→17:42)
[2020-04-28] MEDS: LEVOTHYROXINE 150 MCG TABLET PO SCH (06:29)
[2020-04-28] MEDS: ASCORBIC ACID 500 MG TAB PO SCH ×3 (06:29→21:58)
[2020-04-28 06:31] LABS: EOSINOPHILS % (AUTO) 9.9 % (0.0-8.0); HEMATOCRIT 28.5 % (42-54); LYMPHOCYTES % (AUTO) 20.9 % (21.0-51.0); MEAN CORPUSCULAR HEMOGLOBIN 26.7 pg (27.0-33.0); MEAN CORPUSCULAR HGB CONC 32.3 g/dL (32.0-36.0); MEAN CORPUSCULAR VOLUME 82.6 fL (79-99); MONOCYTES % (AUTO) 7.9 % (3.0-13.0); NEUTROPHILS % (AUTO) 59.3 % (40.0-77.0); PLATELET COUNT (AUTO) 452 K/uL (130-400); RED BLOOD CELL COUNT(AUTO) 3.45 MIL/uL (4.50-6.20); RED CELL DISTRIBUTION WIDTH 22.4 % (11.0-15.5); WHITE BLOOD COUNT (AUTO) 7.1 K/uL (4.8-10.8)
[2020-04-28] MEDS: PROPOFOL 1000 MG/100 ML 100 ML IV SCH (06:52)
[2020-04-28 06:56] LABS: ALBUMIN 1.7 g/dL (3.5-5.0); BILIRUBIN,TOTAL 0.3 mg/dL (0.2-1.0); CREATININE 0.5 mg/dL (0.5-1.5); POTASSIUM 3.8 mmol/L (3.5-5.1)
[2020-04-28] MEDS: POTASSIUM CHLORIDE 10% ELIXIR 20 MEQ/15 ML UDCUP PO PRN (08:48)
[2020-04-28] MEDS: ZINC SULFATE 220 CAPSULE PO SCH (08:51)
[2020-04-28] MEDS: KETAMINE IV SCH (08:51)
[2020-04-28] MEDS: PANTOPRAZOLE 40 MG/VIAL IVP SCH ×2 (08:51→20:46)
[2020-04-28] MEDS: ENOXAPARIN SODIUM 100 MG/1 ML SQ SCH (08:51)
[2020-04-28] MEDS: NACL 0.9% IV SCH (08:51)
[2020-04-28] MEDS: BARICITINIB (EUA) 2 MG TABLET PO SCH (09:00)
[2020-04-28] MEDS: QUETIAPINE FUMARATE 25 MG TAB NG SCH ×2 (14:52→20:47)
[2020-04-28] MEDS: DEXMEDETOMIDINE HCL 400 MCG in 0.9%NACL 100ML 100 ML IV SCH ×2 (14:56→17:52)
[2020-04-28] MEDS: HONEY 1 APPL/ML TUBE TP SCH (14:58)
[2020-04-28] MEDS: NYSTATIN 15 GM OINT TP SCH (20:47)
[2020-04-29] VITALS (65 sets, daily range): BP systolic 74–196; BP diastolic 33–84
[2020-04-29] MEDS: SUCRALFATE 1 GM TABLET NG SCH ×4 (03:00→21:51)
[2020-04-29] MEDS: DEXTROSE 50%-WATER 50 ML DISP.SYRIN IV PRN (04:05)
[2020-04-29 06:25] LABS: BASOPHILS % (AUTO) 0.7 % (0.0-5.0); EOSINOPHILS % (AUTO) 10.9 % (0.0-8.0); HEMATOCRIT 26.4 % (42-54); LYMPHOCYTES % (AUTO) 22.2 % (21.0-51.0); MEAN CORPUSCULAR HEMOGLOBIN 26.2 pg (27.0-33.0); MEAN CORPUSCULAR HGB CONC 31.4 g/dL (32.0-36.0); MEAN CORPUSCULAR VOLUME 83.3 fL (79-99); MONOCYTES % (AUTO) 7.6 % (3.0-13.0); NEUTROPHILS % (AUTO) 57.7 % (40.0-77.0); PLATELET COUNT (AUTO) 429 K/uL (130-400); RED BLOOD CELL COUNT(AUTO) 3.17 MIL/uL (4.50-6.20); RED CELL DISTRIBUTION WIDTH 22.3 % (11.0-15.5); WHITE BLOOD COUNT (AUTO) 7.5 K/uL (4.8-10.8)
[2020-04-29] MEDS: LEVOTHYROXINE 150 MCG TABLET PO SCH (06:37)
[2020-04-29] MEDS: ASCORBIC ACID 500 MG TAB PO SCH ×3 (06:37→21:51)
[2020-04-29 06:38] LABS: ALBUMIN 1.7 g/dL (3.5-5.0); BILIRUBIN,TOTAL 0.4 mg/dL (0.2-1.0); CREATININE 0.5 mg/dL (0.5-1.5); MAGNESIUM 1.9 mg/dL (1.80-2.40); TOTAL PROTEIN, SERUM 5.8 g/dL (6.0-8.3)
[2020-04-29 07:30] LABS: ABG BASE EXCESS 4.8 mmol/L (-2.0-3.0); ABG HCO3 28.3 mmol/L (21.0-28.0); ABG OXYGEN SATURATION 98.9 % (95.0-99.0); ABG PCO2 38 mmHg (35-48)
[2020-04-29] MEDS: QUETIAPINE FUMARATE 25 MG TAB NG SCH ×2 (08:49→21:51)
[2020-04-29] MEDS: PANTOPRAZOLE 40 MG/VIAL IVP SCH ×2 (08:49→21:51)
[2020-04-29] MEDS: NYSTATIN 15 GM OINT TP SCH ×2 (08:50→21:51)
[2020-04-29] MEDS: ZINC SULFATE 220 CAPSULE PO SCH (08:50)
[2020-04-29] MEDS: BARICITINIB (EUA) 2 MG TABLET PO SCH ×2 (08:50→09:00)
[2020-04-30] VITALS (54 sets, daily range): BP systolic 107–187; BP diastolic 41–87
[2020-04-30] MEDS: SUCRALFATE 1 GM TABLET NG SCH ×4 (00:17→20:47)
[2020-04-30 05:21] LABS: BASOPHILS % (AUTO) 0.7 % (0.0-5.0); EOSINOPHILS % (AUTO) 10.5 % (0.0-8.0); HEMATOCRIT 24.3 % (42-54); LYMPHOCYTES % (AUTO) 21.7 % (21.0-51.0); MEAN CORPUSCULAR HEMOGLOBIN 27.1 pg (27.0-33.0); MEAN CORPUSCULAR HGB CONC 32.9 g/dL (32.0-36.0); MEAN CORPUSCULAR VOLUME 82.4 fL (79-99); MONOCYTES % (AUTO) 10.5 % (3.0-13.0); NEUTROPHILS % (AUTO) 55.7 % (40.0-77.0); PLATELET COUNT (AUTO) 436 K/uL (130-400); RED BLOOD CELL COUNT(AUTO) 2.95 MIL/uL (4.50-6.20); RED CELL DISTRIBUTION WIDTH 21.3 % (11.0-15.5)
[2020-04-30 05:41] LABS: ALBUMIN 1.7 g/dL (3.5-5.0); BILIRUBIN,TOTAL 0.4 mg/dL (0.2-1.0); CREATININE 0.4 mg/dL (0.5-1.5); CRP QUANTITATIVE 92.3 mg/L (0.00-9.0); POTASSIUM 3.8 mmol/L (3.5-5.1); TOTAL PROTEIN, SERUM 5.6 g/dL (6.0-8.3)
[2020-04-30] MEDS: LEVOTHYROXINE 150 MCG TABLET PO SCH (06:49)
[2020-04-30] MEDS: POTASSIUM CHLORIDE 10% ELIXIR 20 MEQ/15 ML UDCUP PO PRN (06:49)
[2020-04-30] MEDS: ASCORBIC ACID 500 MG TAB PO SCH ×3 (06:49→20:47)
[2020-04-30 06:58] LABS: ABG BASE EXCESS 3.1 mmol/L (-2.0-3.0); ABG HCO3 26.2 mmol/L (21.0-28.0); ABG PCO2 36 mmHg (35-48)
[2020-04-30] MEDS: BARICITINIB (EUA) 2 MG TABLET PO SCH (09:00)
[2020-04-30] MEDS: NYSTATIN 15 GM OINT TP SCH ×2 (09:00→20:47)
[2020-04-30] MEDS: QUETIAPINE FUMARATE 25 MG TAB NG SCH ×2 (09:00→20:47)
[2020-04-30] MEDS: PANTOPRAZOLE 40 MG/VIAL IVP SCH ×2 (09:00→20:47)
[2020-04-30] MEDS: ZINC SULFATE 220 CAPSULE PO SCH (09:00)
[2020-04-30] MEDS: ALBUTEROL INHALER 90MCG/INH IH SCH (21:34)
[2020-04-30] MEDS: ACETAMINOPHEN 325 MG TAB PO PRN (23:50)
[2020-05-01] VITALS (49 sets, daily range): BP systolic 64–196; BP diastolic 39–88
[2020-05-01] MEDS: SUCRALFATE 1 GM TABLET NG SCH ×4 (01:46→18:31)
[2020-05-01 04:47] LABS: BASOPHILS % (AUTO) 0.7 % (0.0-5.0); EOSINOPHILS % (AUTO) 2.2 % (0.0-8.0); LYMPHOCYTES % (AUTO) 11.9 % (21.0-51.0); MEAN CORPUSCULAR HEMOGLOBIN 26.7 pg (27.0-33.0); MEAN CORPUSCULAR HGB CONC 32.3 g/dL (32.0-36.0); MEAN CORPUSCULAR VOLUME 82.9 fL (79-99); MONOCYTES % (AUTO) 6.1 % (3.0-13.0); NEUTROPHILS % (AUTO) 78.4 % (40.0-77.0); PLATELET COUNT (AUTO) 521 K/uL (130-400); RED BLOOD CELL COUNT(AUTO) 3.74 MIL/uL (4.50-6.20); RED CELL DISTRIBUTION WIDTH 21.4 % (11.0-15.5); WHITE BLOOD COUNT (AUTO) 12.2 K/uL (4.8-10.8)
[2020-05-01 05:15] LABS: ALBUMIN 2.3 g/dL (3.5-5.0); BILIRUBIN,TOTAL 0.7 mg/dL (0.2-1.0); CREATININE 0.6 mg/dL (0.5-1.5); CRP QUANTITATIVE 127.9 mg/L (0.00-9.0); MAGNESIUM 1.4 mg/dL (1.80-2.40); POTASSIUM 3.8 mmol/L (3.5-5.1); TOTAL PROTEIN, SERUM 7.1 g/dL (6.0-8.3)
[2020-05-01 05:37] LABS: APPEARANCE,URINE Clear (CLEAR); BILIRUBIN,URINE Negative (NEGATIVE); COLOR,URINE Yellow (YELLOW); GLUCOSE, URINE (UA) >=1000 mg/dL (NEGATIVE); KETONES,URINE >=160 mg/dL (NEGATIVE); LEUKOCYTE ESTERASE ,URINE Trace (NEGATIVE); NITRATE,URINE Negative (NEGATIVE); OCCULT BLOOD,URINE Moderate (NEGATIVE); PH,URINE 6.5 (5.0-8.0); PROTEIN,URINE POS 1+ mg/dL (NEGATIVE)
[2020-05-01] MEDS: LEVOTHYROXINE 150 MCG TABLET PO SCH (05:37)
[2020-05-01] MEDS: ASCORBIC ACID 500 MG TAB PO SCH ×3 (05:37→22:04)
[2020-05-01 05:39] LABS: ABG BASE EXCESS -3.5 mmol/L (-2.0-3.0); ABG HCO3 21.6 mmol/L (21.0-28.0); ABG OXYGEN SATURATION 97.5 % (95.0-99.0); ABG PCO2 39 mmHg (35-48)
[2020-05-01 05:47] LABS: BACTERIA,URINE Rare /HPF (None Seen); MUCUS,URINE Rare LPF (None Seen); SQUAMOUS EPITHELIAL CELL,UR Few /HPF (0-2)
[2020-05-01] MEDS: ALBUTEROL INHALER 90MCG/INH IH SCH ×2 (06:00→22:00)
[2020-05-01] MEDS ORDERED: METOPROLOL TARTRATE 1 MG/ML 5ML VIAL IV ONE (06:10)
[2020-05-01] MEDS ORDERED: METOPROLOL TARTRATE 1 MG/ML 5ML VIAL IV PRN (06:45)
[2020-05-01] MEDS ORDERED: METOPROLOL TARTRATE 1 MG/ML 5ML VIAL IV SCH (06:45)
[2020-05-01] MEDS ORDERED: LORAZEPAM 2 MG/ML 1 ML VIAL IVP SCH (08:10)
[2020-05-01] MEDS ORDERED: LORAZEPAM 2 MG/ML 1 ML VIAL ONE (08:13)
[2020-05-01] MEDS: MEROPENEM 1 GM VIAL IVP SCH ×2 (08:30→16:05)
[2020-05-01] MEDS ORDERED: FUROSEMIDE 100MG VIAL IVP SCH (08:30)
[2020-05-01] MEDS: LINEZOLID 600 MG/ISO-OSM 300 ML IV SCH ×2 (08:30→19:56)
[2020-05-01] MEDS ORDERED: ALBUMIN (HUMAN) 25% 50 ML IV SCH (08:30)
[2020-05-01] MEDS ORDERED: PROPOFOL 1000 MG/100 ML IV STA (08:47)
[2020-05-01] MEDS ORDERED: PROPOFOL 1000 MG/100 ML 100 ML IV ONE (08:49)
[2020-05-01 09:56] LABS: INR 1.1 (0.85-1.15); PROTHROMBIN TIME 11.9 SEC (9.6-11.6)
[2020-05-01 09:57] LABS: PARTIAL THROMBOPLASTIN TIME 31.9 SEC (26.3-35.5)
[2020-05-01] MEDS: PANTOPRAZOLE 40 MG/VIAL IVP SCH ×2 (10:33→19:57)
[2020-05-01] MEDS: NYSTATIN 15 GM OINT TP SCH ×2 (10:34→19:57)
[2020-05-01] MEDS: BARICITINIB (EUA) 2 MG TABLET PO SCH (10:34)
[2020-05-01] MEDS: ZINC SULFATE 220 CAPSULE PO SCH (10:34)
[2020-05-01] MEDS: QUETIAPINE FUMARATE 25 MG TAB NG SCH ×2 (10:34→19:57)
[2020-05-01] MEDS ORDERED: FENTANYL 2500MCG+NS 250ML 250 ML IV ONE (11:05)
[2020-05-01] MEDS ORDERED: FENTANYL CITRATE PF 0.05 MG/ML 1,000 MCG in 0.9%NACL 100ML 100 ML IVPB STA (11:29)
[2020-05-01 11:31] LABS: ABG BASE EXCESS 0.3 mmol/L (-2.0-3.0); ABG HCO3 27.3 mmol/L (21.0-28.0); ABG OXYGEN SATURATION 88.9 % (95.0-99.0); ABG PCO2 55 mmHg (35-48)
[2020-05-01] MEDS: PROPOFOL 1000 MG/100 ML 100 ML IV PRN ×3 (14:54→19:59)
[2020-05-01] MEDS: INSULIN REGULAR, HUMAN 3ML 100 UNIT in 0.9%NACL 100ML 99 ML IV PRN ×2 (14:54)
[2020-05-01] MEDS: POTASSIUM CHLORIDE 10% ELIXIR 20 MEQ/15 ML UDCUP PO PRN ×2 (15:07→15:08)
[2020-05-01] MEDS: MAGNESIUM 2GM PREMIX 50ML 50 ML IV SCH (15:07)
[2020-05-01] MEDS ORDERED: VECURONIUM 10MG/10ML IV PRN (16:30)
[2020-05-01] MEDS: FENTANYL 2500MCG+NS 250ML 250 ML IV SCH (22:05)
[2020-05-02] VITALS (42 sets, daily range): BP systolic 86–120; BP diastolic 47–71
[2020-05-02] MEDS ORDERED: 0.9%NACL 1000ML 500 ML IV ONE
[2020-05-02] MEDS ORDERED: NOREPINEPHRIN 4MG/NS 250ML 250 ML IV ONE (00:06)
[2020-05-02 00:35] LABS: ABG BASE EXCESS -3.6 mmol/L (-2.0-3.0); ABG HCO3 26.5 mmol/L (21.0-28.0); ABG OXYGEN SATURATION 81.6 % (95.0-99.0); ABG PCO2 72 mmHg (35-48)
[2020-05-02] MEDS ORDERED: NOREPINEPHRIN 4MG/NS 250ML 250 ML IV PRN (00:45)
[2020-05-02] MEDS: MEROPENEM 1 GM VIAL IVP SCH ×3 (00:48→17:09)
[2020-05-02] MEDS: SUCRALFATE 1 GM TABLET NG SCH ×4 (00:49→17:09)
[2020-05-02] MEDS: MIDAZOLAM 100MG-0.9% NS 100ML 100 ML IV PRN ×2 (01:37→19:00)
[2020-05-02 02:18] LABS: BASOPHILS % (AUTO) 0.7 % (0.0-5.0); EOSINOPHILS % (AUTO) 1.3 % (0.0-8.0); HEMATOCRIT 30.3 % (42-54); LYMPHOCYTES % (AUTO) 12.2 % (21.0-51.0); MEAN CORPUSCULAR HGB CONC 31.7 g/dL (32.0-36.0); MEAN CORPUSCULAR VOLUME 85.4 fL (79-99); NEUTROPHILS % (AUTO) 74.1 % (40.0-77.0); NUCLEATED RED BLOOD CELLS 0.3 % (0.0-0.19); PLATELET COUNT (AUTO) 411 K/uL (130-400); RED BLOOD CELL COUNT(AUTO) 3.55 MIL/uL (4.50-6.20); RED CELL DISTRIBUTION WIDTH 21.1 % (11.0-15.5); WHITE BLOOD COUNT (AUTO) 14.3 K/uL (4.8-10.8)
[2020-05-02 02:32] LABS: ALBUMIN 1.8 g/dL (3.5-5.0); BILIRUBIN,TOTAL 0.4 mg/dL (0.2-1.0); CREATININE 1.3 mg/dL (0.5-1.5); POTASSIUM 5.4 mmol/L (3.5-5.1); TOTAL PROTEIN, SERUM 6.3 g/dL (6.0-8.3)
[2020-05-02] MEDS: LEVOTHYROXINE 150 MCG TABLET PO SCH (05:23)
[2020-05-02] MEDS: ASCORBIC ACID 500 MG TAB PO SCH ×2 (05:23→14:45)
[2020-05-02] MEDS ORDERED: CACL 1GM SYG IVP SCH (06:15)
[2020-05-02 06:24] LABS: ABG BASE EXCESS -1.8 mmol/L (-2.0-3.0); ABG HCO3 25.6 mmol/L (21.0-28.0); ABG PCO2 57 mmHg (35-48)
[2020-05-02] MEDS: LINEZOLID 600 MG/ISO-OSM 300 ML IV SCH ×2 (08:38→20:23)
[2020-05-02] MEDS: BARICITINIB (EUA) 2 MG TABLET PO SCH (08:39)
[2020-05-02] MEDS: ZINC SULFATE 220 CAPSULE PO SCH (08:39)
[2020-05-02] MEDS: QUETIAPINE FUMARATE 25 MG TAB NG SCH ×2 (08:39→20:23)
[2020-05-02] MEDS: NYSTATIN 15 GM OINT TP SCH ×2 (08:39→20:23)
[2020-05-02] MEDS: PANTOPRAZOLE 40 MG/VIAL IVP SCH (08:43)
[2020-05-02 08:54] LABS: CREATININE 1.2 mg/dL (0.5-1.5); POTASSIUM 4.9 mmol/L (3.5-5.1)
[2020-05-02] MEDS: VECURONIUM 10MG/10ML 50 MG in 0.9%NACL 50ML 50 ML IV SCH ×3 (10:09→22:32)
[2020-05-02] MEDS: FENTANYL 2500MCG+NS 250ML 250 ML IV SCH (13:11)
[2020-05-02] MEDS: PROPOFOL 1000 MG/100 ML 100 ML IV PRN ×2 (13:11→19:00)
[2020-05-02] MEDS: FLUCONAZOLE 200 MG/NS 100 ML 100 ML IV SCH (17:09)
[2020-05-02] MEDS: PANTOPRAZOLE 40 MG TAB DR PO SCH (21:17)
[2020-05-03] VITALS (26 sets, daily range): BP systolic 97–139; BP diastolic 51–67
[2020-05-03] MEDS: MEROPENEM 1 GM VIAL IVP SCH ×3 (00:07→16:27)
[2020-05-03] MEDS: SUCRALFATE 1 GM TABLET NG SCH ×4 (00:07→18:41)
[2020-05-03] MEDS: FENTANYL 2500MCG+NS 250ML 250 ML IV SCH ×2 (00:08→20:27)
[2020-05-03] MEDS: PROPOFOL 1000 MG/100 ML 100 ML IV PRN ×5 (00:11→20:28)
[2020-05-03 04:21] LABS: HEMATOCRIT 28.4 % (42-54); MEAN CORPUSCULAR VOLUME 87.1 fL (79-99); NUCLEATED RED BLOOD CELLS 0.2 % (0.0-0.19); PLATELET COUNT (AUTO) 411 K/uL (130-400); RED BLOOD CELL COUNT(AUTO) 3.26 MIL/uL (4.50-6.20); RED CELL DISTRIBUTION WIDTH 21.2 % (11.0-15.5); WHITE BLOOD COUNT (AUTO) 11.1 K/uL (4.8-10.8)
[2020-05-03 04:32] LABS: ALBUMIN 1.8 g/dL (3.5-5.0); BILIRUBIN,TOTAL 0.3 mg/dL (0.2-1.0); CREATININE 0.8 mg/dL (0.5-1.5); POTASSIUM 4.7 mmol/L (3.5-5.1); TOTAL PROTEIN, SERUM 6.6 g/dL (6.0-8.3)
[2020-05-03 05:12] LABS: BAND NEUTROPHILS % (MANUAL) 10 % (0-2); BASOPHILS % (MANUAL) 1 % (0-2); EOSINOPHILS % (MANUAL) 8 % (1-6); LYMPHOCYTES % (MANUAL) 20 % (22-44); METAMYELOCYTES % 1 % (0-0); MONOCYTES % (MANUAL) 3 % (2-9); REACTIVE LYMPHOCYTES 1 % (0-0); SEGMENTED NEUTROPHILS % 56 % (40-70)
[2020-05-03 05:13] LABS: MAN.DIFF COMMENT-IMPRESSION MANUAL DIFFERENTIAL; PLATELET MORPHOLOGY COMMENT ADEQUATE
[2020-05-03] MEDS: LEVOTHYROXINE 150 MCG TABLET PO SCH (05:45)
[2020-05-03] MEDS: NYSTATIN 15 GM OINT TP SCH ×2 (08:07→20:26)
[2020-05-03] MEDS: LINEZOLID 600 MG/ISO-OSM 300 ML IV SCH ×2 (08:07→20:23)
[2020-05-03] MEDS: FLUCONAZOLE 200 MG/NS 100 ML 100 ML IV SCH (08:07)
[2020-05-03] MEDS: PANTOPRAZOLE 40 MG TAB DR PO SCH ×2 (08:07→20:24)
[2020-05-03] MEDS: QUETIAPINE FUMARATE 25 MG TAB NG SCH ×2 (08:07→20:24)
[2020-05-03] MEDS: BARICITINIB (EUA) 2 MG TABLET PO SCH (09:00)
[2020-05-03] MEDS: VECURONIUM 10MG/10ML 50 MG in 0.9%NACL 50ML 50 ML IV SCH ×3 (11:30→21:33)
[2020-05-03] MEDS: MIDAZOLAM 100MG-0.9% NS 100ML 100 ML IV PRN (11:32)
[2020-05-03] MEDS: INSULIN REGULAR, HUMAN 3ML 100 UNIT in 0.9%NACL 100ML 99 ML IV PRN ×2 (11:33)
[2020-05-03] MEDS: ALBUTEROL INHALER 90MCG/INH IH SCH ×2 (14:00→20:26)
[2020-05-04] VITALS (30 sets, daily range): BP systolic 97–133; BP diastolic 48–63
[2020-05-04] MEDS: MEROPENEM 1 GM VIAL IVP SCH ×3 (01:13→16:55)
[2020-05-04] MEDS: SUCRALFATE 1 GM TABLET NG SCH ×4 (01:13→18:13)
[2020-05-04] MEDS: PROPOFOL 1000 MG/100 ML 100 ML IV PRN ×4 (01:15→17:58)
[2020-05-04] MEDS: MIDAZOLAM 100MG-0.9% NS 100ML 100 ML IV PRN ×2 (01:16→17:59)
[2020-05-04 04:20] LABS: BASOPHILS % (AUTO) 0.6 % (0.0-5.0); EOSINOPHILS % (AUTO) 8.6 % (0.0-8.0); HEMATOCRIT 25.4 % (42-54); LYMPHOCYTES % (AUTO) 28.2 % (21.0-51.0); MEAN CORPUSCULAR HEMOGLOBIN 27.3 pg (27.0-33.0); MEAN CORPUSCULAR HGB CONC 31.1 g/dL (32.0-36.0); MEAN CORPUSCULAR VOLUME 87.9 fL (79-99); MONOCYTES % (AUTO) 5.1 % (3.0-13.0); NEUTROPHILS % (AUTO) 55.4 % (40.0-77.0); NUCLEATED RED BLOOD CELLS 0.2 % (0.0-0.19); PLATELET COUNT (AUTO) 361 K/uL (130-400); RED BLOOD CELL COUNT(AUTO) 2.89 MIL/uL (4.50-6.20); RED CELL DISTRIBUTION WIDTH 20.7 % (11.0-15.5); WHITE BLOOD COUNT (AUTO) 8.7 K/uL (4.8-10.8)
[2020-05-04 04:37] LABS: ALBUMIN 1.8 g/dL (3.5-5.0); BILIRUBIN,TOTAL 0.2 mg/dL (0.2-1.0); POTASSIUM 5.6 mmol/L (3.5-5.1); TOTAL PROTEIN, SERUM 6.5 g/dL (6.0-8.3)
[2020-05-04 06:09] LABS: CRP QUANTITATIVE 264.5 mg/L (0.00-9.0)
[2020-05-04 06:27] LABS: ABG HCO3 29.7 mmol/L (21.0-28.0); ABG OXYGEN SATURATION 93.5 % (95.0-99.0); ABG PCO2 85 mmHg (35-48)
[2020-05-04] MEDS: LEVOTHYROXINE 150 MCG TABLET PO SCH (06:30)
[2020-05-04] MEDS: QUETIAPINE FUMARATE 25 MG TAB NG SCH ×2 (07:53→21:10)
[2020-05-04] MEDS: NYSTATIN 15 GM OINT TP SCH ×2 (07:53→21:12)
[2020-05-04] MEDS: FLUCONAZOLE 200 MG/NS 100 ML 100 ML IV SCH (07:53)
[2020-05-04] MEDS: LINEZOLID 600 MG/ISO-OSM 300 ML IV SCH ×2 (07:53→21:09)
[2020-05-04] MEDS: PANTOPRAZOLE 40 MG TAB DR PO SCH (07:53)
[2020-05-04] MEDS ORDERED: KAYEXALATE 15GM/60ML NG SCH (08:45)
[2020-05-04] MEDS: BARICITINIB (EUA) 2 MG TABLET PO SCH (09:14)
[2020-05-04] MEDS: HONEY 1 APPL/ML TUBE TP SCH (10:00)
[2020-05-04] MEDS ORDERED: CALCIUM GLUC 1GM/10ML VIAL IV SCH (10:45)
[2020-05-04] MEDS ORDERED: CALCIUM GLUC 1GM 1 GM in 0.9%NACL 50ML 50 ML IV SCH (11:30)
[2020-05-04 11:53] LABS: ABG BASE EXCESS 1.4 mmol/L (-2.0-3.0); ABG HCO3 29.8 mmol/L (21.0-28.0); ABG OXYGEN SATURATION 91.7 % (95.0-99.0); ABG PCO2 71 mmHg (35-48)
[2020-05-04 13:29] LABS: POTASSIUM 5.3 mmol/L (3.5-5.1)
[2020-05-04] MEDS: FENTANYL 2500MCG+NS 250ML 250 ML IV SCH (14:00)
[2020-05-04] MEDS ORDERED: PHARMACY COMMUNICATION MISC SCH (14:45)
[2020-05-04 17:21] LABS: ABG BASE EXCESS 2.5 mmol/L (-2.0-3.0); ABG HCO3 31.3 mmol/L (21.0-28.0); ABG OXYGEN SATURATION 96.2 % (95.0-99.0); ABG PCO2 74 mmHg (35-48)
[2020-05-04] MEDS: FUROSEMIDE 40MG VIAL ONE ×2 (19:47→21:11)
[2020-05-04] MEDS: ACETYLCYSTEINE 10% 100MG/ML 4ML VIAL IH SCH (21:00)
[2020-05-04] MEDS: ALBUTEROL 0.042% 1.25MG/3ML IH SCH (21:00)
[2020-05-04] MEDS: FUROSEMIDE 100MG VIAL IVP SCH ×2 (21:12→22:00)
[2020-05-05] VITALS (38 sets, daily range): BP systolic 94–158; BP diastolic 41–77
[2020-05-05] MEDS: SUCRALFATE 1 GM TABLET NG SCH ×4 (01:06→20:09)
[2020-05-05] MEDS: MEROPENEM 1 GM VIAL IVP SCH ×3 (01:06→16:30)
[2020-05-05 04:13] LABS: BASOPHILS % (AUTO) 0.5 % (0.0-5.0); EOSINOPHILS % (AUTO) 9.1 % (0.0-8.0); LYMPHOCYTES % (AUTO) 30.8 % (21.0-51.0); MEAN CORPUSCULAR HEMOGLOBIN 27.6 pg (27.0-33.0); MEAN CORPUSCULAR HGB CONC 31.8 g/dL (32.0-36.0); MEAN CORPUSCULAR VOLUME 86.6 fL (79-99); MONOCYTES % (AUTO) 5.4 % (3.0-13.0); NUCLEATED RED BLOOD CELLS 0.3 % (0.0-0.19); PLATELET COUNT (AUTO) 351 K/uL (130-400); RED BLOOD CELL COUNT(AUTO) 2.54 MIL/uL (4.50-6.20); RED CELL DISTRIBUTION WIDTH 20.3 % (11.0-15.5); WHITE BLOOD COUNT (AUTO) 7.3 K/uL (4.8-10.8)
[2020-05-05 04:34] LABS: ALBUMIN 1.7 g/dL (3.5-5.0); BILIRUBIN,TOTAL 0.2 mg/dL (0.2-1.0); CREATININE 0.8 mg/dL (0.5-1.5); CRP QUANTITATIVE 137.8 mg/L (0.00-9.0); POTASSIUM 4.6 mmol/L (3.5-5.1)
[2020-05-05] MEDS ORDERED: PHARMACY COMMUNICATION MISC SCH ×2 (05:15→16:45)
[2020-05-05] MEDS: FUROSEMIDE 100MG VIAL IVP SCH ×3 (05:39→21:12)
[2020-05-05] MEDS: LEVOTHYROXINE 150 MCG TABLET PO SCH (05:39)
[2020-05-05] MEDS: PROPOFOL 1000 MG/100 ML 100 ML IV PRN ×4 (06:31→21:48)
[2020-05-05] MEDS: NYSTATIN 15 GM OINT TP SCH ×2 (08:23→21:12)
[2020-05-05] MEDS: PANTOPRAZOLE 40 MG/VIAL IV SCH ×2 (08:23→21:12)
[2020-05-05] MEDS: LINEZOLID 600 MG/ISO-OSM 300 ML IV SCH ×2 (08:23→21:12)
[2020-05-05] MEDS: QUETIAPINE FUMARATE 25 MG TAB NG SCH ×2 (08:23→21:12)
[2020-05-05] MEDS: BARICITINIB (EUA) 2 MG TABLET PO SCH (08:23)
[2020-05-05] MEDS: HONEY 1 APPL/ML TUBE TP SCH (08:24)
[2020-05-05] MEDS: FLUCONAZOLE 200 MG/NS 100 ML 100 ML IV SCH (09:42)
[2020-05-05] MEDS: FENTANYL 2500MCG+NS 250ML 250 ML IV SCH (09:52)
[2020-05-05] MEDS: ALBUTEROL 0.042% 1.25MG/3ML IH SCH ×3 (09:59→21:03)
[2020-05-05] MEDS: ACETYLCYSTEINE 10% 100MG/ML 4ML VIAL IH SCH ×3 (09:59→21:03)
[2020-05-05] MEDS ORDERED: 0.9% NACL 250ML 250 ML IV ONE (10:32)
[2020-05-05] MEDS: ALBUMIN (HUMAN) 25% 50 ML IV SCH (13:15)
[2020-05-05 15:36] LABS: BASOPHILS % (AUTO) 0.6 % (0.0-5.0); HEMATOCRIT 25.1 % (42-54); LYMPHOCYTES % (AUTO) 35.3 % (21.0-51.0); MEAN CORPUSCULAR HEMOGLOBIN 28.3 pg (27.0-33.0); MEAN CORPUSCULAR HGB CONC 32.7 g/dL (32.0-36.0); MEAN CORPUSCULAR VOLUME 86.6 fL (79-99); MONOCYTES % (AUTO) 5.5 % (3.0-13.0); NEUTROPHILS % (AUTO) 45.4 % (40.0-77.0); NUCLEATED RED BLOOD CELLS 0.4 % (0.0-0.19); PLATELET COUNT (AUTO) 355 K/uL (130-400); RED CELL DISTRIBUTION WIDTH 19.4 % (11.0-15.5); WHITE BLOOD COUNT (AUTO) 7.8 K/uL (4.8-10.8)
[2020-05-05] MEDS: VECURONIUM 10MG/10ML 50 MG in 0.9%NACL 50ML 50 ML IV SCH (18:04)
[2020-05-06] VITALS (36 sets, daily range): BP systolic 89–187; BP diastolic 41–91
[2020-05-06] MEDS: SUCRALFATE 1 GM TABLET NG SCH ×4 (00:24→20:04)
[2020-05-06] MEDS: MEROPENEM 1 GM VIAL IVP SCH ×3 (00:24→17:16)
[2020-05-06] MEDS: MIDAZOLAM 100MG-0.9% NS 100ML 100 ML IV PRN (03:10)
[2020-05-06 04:43] LABS: BASOPHILS % (AUTO) 1.1 % (0.0-5.0); EOSINOPHILS % (AUTO) 7.2 % (0.0-8.0); HEMATOCRIT 25.6 % (42-54); LYMPHOCYTES % (AUTO) 27.9 % (21.0-51.0); MEAN CORPUSCULAR HEMOGLOBIN 27.2 pg (27.0-33.0); MEAN CORPUSCULAR HGB CONC 31.6 g/dL (32.0-36.0); MEAN CORPUSCULAR VOLUME 85.9 fL (79-99); MONOCYTES % (AUTO) 5.7 % (3.0-13.0); NEUTROPHILS % (AUTO) 50.3 % (40.0-77.0); NUCLEATED RED BLOOD CELLS 0.3 % (0.0-0.19); PLATELET COUNT (AUTO) 407 K/uL (130-400); RED BLOOD CELL COUNT(AUTO) 2.98 MIL/uL (4.50-6.20); RED CELL DISTRIBUTION WIDTH 19.4 % (11.0-15.5); WHITE BLOOD COUNT (AUTO) 9.3 K/uL (4.8-10.8)
[2020-05-06 05:14] LABS: ALBUMIN 1.9 g/dL (3.5-5.0); BILIRUBIN,TOTAL 0.3 mg/dL (0.2-1.0); CREATININE 0.6 mg/dL (0.5-1.5); CRP QUANTITATIVE 78.5 mg/L (0.00-9.0); POTASSIUM 3.2 mmol/L (3.5-5.1); TOTAL PROTEIN, SERUM 6.1 g/dL (6.0-8.3)
[2020-05-06] MEDS: LEVOTHYROXINE 150 MCG TABLET PO SCH (05:52)
[2020-05-06] MEDS: FUROSEMIDE 100MG VIAL IVP SCH ×3 (05:53→21:14)
[2020-05-06] MEDS: PROPOFOL 1000 MG/100 ML 100 ML IV PRN ×2 (05:54→12:25)
[2020-05-06 06:24] LABS: ABG BASE EXCESS 14.7 mmol/L (-2.0-3.0); ABG HCO3 38.8 mmol/L (21.0-28.0); ABG OXYGEN SATURATION 98.3 % (95.0-99.0); ABG PCO2 45 mmHg (35-48)
[2020-05-06] MEDS: ALBUTEROL 0.042% 1.25MG/3ML IH SCH ×3 (06:29→21:00)
[2020-05-06] MEDS: ACETYLCYSTEINE 10% 100MG/ML 4ML VIAL IH SCH ×3 (06:29→21:00)
[2020-05-06] MEDS: QUETIAPINE FUMARATE 25 MG TAB NG SCH ×2 (07:55→20:06)
[2020-05-06] MEDS: BARICITINIB (EUA) 2 MG TABLET PO SCH (07:56)
[2020-05-06] MEDS: PANTOPRAZOLE 40 MG/VIAL IV SCH ×2 (07:56→20:06)
[2020-05-06] MEDS: FLUCONAZOLE 200 MG/NS 100 ML 100 ML IV SCH (07:57)
[2020-05-06] MEDS: LINEZOLID 600 MG/ISO-OSM 300 ML IV SCH ×2 (07:57→20:06)
[2020-05-06] MEDS: ALBUMIN (HUMAN) 25% 50 ML IV SCH (08:01)
[2020-05-06] MEDS: NYSTATIN 15 GM OINT TP SCH ×2 (08:50→20:06)
[2020-05-06] MEDS: FENTANYL 2500MCG+NS 250ML 250 ML IV SCH (09:26)
[2020-05-06] MEDS: VECURONIUM 10MG/10ML 50 MG in 0.9%NACL 50ML 50 ML IV SCH (09:27)
[2020-05-07] VITALS (35 sets, daily range): BP systolic 92–147; BP diastolic 43–68
[2020-05-07] MEDS: PROPOFOL 1000 MG/100 ML 100 ML IV PRN ×5 (00:10→23:50)
[2020-05-07] MEDS: MEROPENEM 1 GM VIAL IVP SCH ×4 (00:11→23:49)
[2020-05-07] MEDS: SUCRALFATE 1 GM TABLET NG SCH ×4 (00:41→17:37)
[2020-05-07 06:00] LABS: BASOPHILS % (AUTO) 1.1 % (0.0-5.0); EOSINOPHILS % (AUTO) 5.7 % (0.0-8.0); HEMATOCRIT 26.4 % (42-54); LYMPHOCYTES % (AUTO) 25.5 % (21.0-51.0); MEAN CORPUSCULAR HEMOGLOBIN 27.4 pg (27.0-33.0); MEAN CORPUSCULAR HGB CONC 32.2 g/dL (32.0-36.0); MEAN CORPUSCULAR VOLUME 85.2 fL (79-99); MONOCYTES % (AUTO) 5.6 % (3.0-13.0); NEUTROPHILS % (AUTO) 51.6 % (40.0-77.0); NUCLEATED RED BLOOD CELLS 0.3 % (0.0-0.19); PLATELET COUNT (AUTO) 412 K/uL (130-400); RED CELL DISTRIBUTION WIDTH 19.9 % (11.0-15.5); WHITE BLOOD COUNT (AUTO) 8.7 K/uL (4.8-10.8)
[2020-05-07 06:15] LABS: CREATININE 0.6 mg/dL (0.5-1.5); CRP QUANTITATIVE 52.2 mg/L (0.00-9.0); MAGNESIUM 1.4 mg/dL (1.80-2.40); POTASSIUM 3.2 mmol/L (3.5-5.1)
[2020-05-07] MEDS: LEVOTHYROXINE 150 MCG TABLET PO SCH (06:18)
[2020-05-07] MEDS: FUROSEMIDE 100MG VIAL IVP SCH ×2 (06:18→13:52)
[2020-05-07] MEDS: ALBUTEROL 0.042% 1.25MG/3ML IH SCH ×2 (06:23→13:34)
[2020-05-07] MEDS: ACETYLCYSTEINE 10% 100MG/ML 4ML VIAL IH SCH ×2 (06:23→13:34)
[2020-05-07] MEDS ORDERED: FENTANYL 2500MCG+NS 250ML 250 ML IV ONE (06:31)
[2020-05-07] MEDS: FENTANYL 2500MCG+NS 250ML 250 ML IV SCH (06:34)
[2020-05-07] MEDS: MIDAZOLAM 100MG-0.9% NS 100ML 100 ML IV PRN ×2 (06:34→22:31)
[2020-05-07 07:05] LABS: ABG BASE EXCESS 16.9 mmol/L (-2.0-3.0); ABG HCO3 42.4 mmol/L (21.0-28.0); ABG OXYGEN SATURATION 96.7 % (95.0-99.0); ABG PCO2 56 mmHg (35-48)
[2020-05-07] MEDS: QUETIAPINE FUMARATE 25 MG TAB NG SCH ×2 (08:53→22:30)
[2020-05-07] MEDS: PANTOPRAZOLE 40 MG/VIAL IV SCH ×2 (08:53→22:29)
[2020-05-07] MEDS: BARICITINIB (EUA) 2 MG TABLET PO SCH (08:53)
[2020-05-07] MEDS: LINEZOLID 600 MG/ISO-OSM 300 ML IV SCH ×2 (08:54→22:29)
[2020-05-07] MEDS: NYSTATIN 15 GM OINT TP SCH ×2 (08:54→22:30)
[2020-05-07] MEDS: FLUCONAZOLE 200 MG/NS 100 ML 100 ML IV SCH (08:54)
[2020-05-07] MEDS ORDERED: MAGNESIUM 2GM PREMIX 50ML 50 ML IV PRN (14:00)
[2020-05-08] VITALS (42 sets, daily range): BP systolic 100–176; BP diastolic 47–85
[2020-05-08] MEDS: SUCRALFATE 1 GM TABLET NG SCH ×4 (00:45→18:10)
[2020-05-08 06:10] LABS: BASOPHILS % (AUTO) 1.5 % (0.0-5.0); LYMPHOCYTES % (AUTO) 29.1 % (21.0-51.0); MEAN CORPUSCULAR HEMOGLOBIN 26.9 pg (27.0-33.0); MEAN CORPUSCULAR HGB CONC 31.4 g/dL (32.0-36.0); MEAN CORPUSCULAR VOLUME 85.6 fL (79-99); MONOCYTES % (AUTO) 6.9 % (3.0-13.0); NEUTROPHILS % (AUTO) 47.2 % (40.0-77.0); NUCLEATED RED BLOOD CELLS 0.4 % (0.0-0.19); PLATELET COUNT (AUTO) 476 K/uL (130-400); RED BLOOD CELL COUNT(AUTO) 3.27 MIL/uL (4.50-6.20); RED CELL DISTRIBUTION WIDTH 19.9 % (11.0-15.5); WHITE BLOOD COUNT (AUTO) 8.5 K/uL (4.8-10.8)
[2020-05-08 06:21] LABS: CREATININE 0.5 mg/dL (0.5-1.5); POTASSIUM 3.3 mmol/L (3.5-5.1)
[2020-05-08] MEDS: LEVOTHYROXINE 150 MCG TABLET PO SCH (06:30)
[2020-05-08 06:31] LABS: ABG BASE EXCESS 14.7 mmol/L (-2.0-3.0); ABG HCO3 40.7 mmol/L (21.0-28.0); ABG OXYGEN SATURATION 95.3 % (95.0-99.0); ABG PCO2 59 mmHg (35-48)
[2020-05-08] MEDS ORDERED: FENTANYL 2500MCG+NS 250ML 250 ML IV ONE (06:46)
[2020-05-08] MEDS: PROPOFOL 1000 MG/100 ML 100 ML IV PRN ×3 (06:48→22:35)
[2020-05-08] MEDS ORDERED: FENTANYL CITRATE PF 0.05 MG/ML 1,000 MCG in 0.9%NACL 100ML 100 ML IV PRN (07:00)
[2020-05-08] MEDS: PANTOPRAZOLE 40 MG/VIAL IV SCH ×2 (08:18→21:27)
[2020-05-08] MEDS: QUETIAPINE FUMARATE 25 MG TAB NG SCH ×3 (08:18→21:27)
[2020-05-08] MEDS: MEROPENEM 1 GM VIAL IVP SCH ×2 (08:18→16:37)
[2020-05-08] MEDS: LINEZOLID 600 MG/ISO-OSM 300 ML IV SCH ×2 (08:18→21:27)
[2020-05-08] MEDS: FLUCONAZOLE 200 MG/NS 100 ML 100 ML IV SCH (08:18)
[2020-05-08] MEDS: BARICITINIB (EUA) 2 MG TABLET PO SCH ×3 (08:18→09:00)
[2020-05-08] MEDS: NYSTATIN 15 GM OINT TP SCH ×2 (08:19→21:27)
[2020-05-08] MEDS ORDERED: DEXAMETHASONE SOD PHOSPHATE 10MG/ML 1ML VIAL ONE (15:55)
[2020-05-08] MEDS ORDERED: SUCCINYLCHOLINE 200MG/10ML SYR ONE (15:55)
[2020-05-08] MEDS ORDERED: LIDOCAINE PF 100MG/5ML (2%) SYRINGE 5ML ONE (15:55)
[2020-05-08] MEDS ORDERED: MIDAZOLAM HCL 1 MG/ML 2ML VIAL ONE (15:56)
[2020-05-08] MEDS ORDERED: FENTANYL CITRATE PF 50 MCG/1 ML 2ML VIAL ONE (15:56)
[2020-05-08] MEDS ORDERED: PROPOFOL 10 MG/ML 20ML VIAL IV ONE ×2 (15:56→16:51)
[2020-05-08] MEDS ORDERED: ROCURONIUM 10MG/1ML SYR 10 MG/ML ML ONE ×2 (15:56→16:49)
[2020-05-08] MEDS ORDERED: ONDANSETRON 4MG INJ ONE (15:56)
[2020-05-08] MEDS ORDERED: LACTATED RINGERS 1000ML 1,000 ML IV ONE (16:29)
[2020-05-08] MEDS ORDERED: LIDOCAINE 1%-EPI 1:100,000 20 ML VIAL IJ ONE (16:50)
[2020-05-08] MEDS ORDERED: EPHEDRINE SULFATE 50 MG/ML AMPULE ONE (16:55)
[2020-05-09] VITALS (48 sets, daily range): BP systolic 105–183; BP diastolic 46–93
[2020-05-09] MEDS: MEROPENEM 1 GM VIAL IVP SCH ×3 (01:11→15:48)
[2020-05-09] MEDS: SUCRALFATE 1 GM TABLET NG SCH ×4 (01:11→20:25)
[2020-05-09] MEDS: FENTANYL 2500MCG+NS 250ML 250 ML IV SCH (04:23)
[2020-05-09] MEDS: MIDAZOLAM 100MG-0.9% NS 100ML 100 ML IV PRN ×2 (04:24→17:15)
[2020-05-09] MEDS: PROPOFOL 1000 MG/100 ML 100 ML IV PRN ×3 (04:25→20:31)
[2020-05-09 06:08] LABS: BASOPHILS % (AUTO) 1.2 % (0.0-5.0); EOSINOPHILS % (AUTO) 4.5 % (0.0-8.0); HEMATOCRIT 29.8 % (42-54); LYMPHOCYTES % (AUTO) 26.3 % (21.0-51.0); MEAN CORPUSCULAR HEMOGLOBIN 27.1 pg (27.0-33.0); MEAN CORPUSCULAR HGB CONC 30.5 g/dL (32.0-36.0); MEAN CORPUSCULAR VOLUME 88.7 fL (79-99); MONOCYTES % (AUTO) 6.6 % (3.0-13.0); NEUTROPHILS % (AUTO) 53.6 % (40.0-77.0); PLATELET COUNT (AUTO) 554 K/uL (130-400); RED BLOOD CELL COUNT(AUTO) 3.36 MIL/uL (4.50-6.20); RED CELL DISTRIBUTION WIDTH 20.1 % (11.0-15.5); WHITE BLOOD COUNT (AUTO) 9.4 K/uL (4.8-10.8)
[2020-05-09 06:13] LABS: CREATININE 0.5 mg/dL (0.5-1.5); POTASSIUM 3.8 mmol/L (3.5-5.1)
[2020-05-09] MEDS: LEVOTHYROXINE 150 MCG TABLET PO SCH (06:27)
[2020-05-09] MEDS: FLUCONAZOLE 200 MG/NS 100 ML 100 ML IV SCH (09:11)
[2020-05-09] MEDS: PANTOPRAZOLE 40 MG/VIAL IV SCH ×2 (09:11→20:32)
[2020-05-09] MEDS: LINEZOLID 600 MG/ISO-OSM 300 ML IV SCH ×2 (09:11→22:05)
[2020-05-09] MEDS: QUETIAPINE FUMARATE 25 MG TAB NG SCH ×2 (09:11→20:32)
[2020-05-09] MEDS: NYSTATIN 15 GM OINT TP SCH ×2 (09:12→20:55)
[2020-05-09] MEDS: LACTULOSE 20 GM/30 ML UDCUP PO SCH ×2 (10:12→20:32)
[2020-05-09] MEDS ORDERED: INSULIN REGULAR, HUMAN 3ML 100 UNIT in 0.9%NACL 100ML 99 ML IV PRN ×2 (19:45)
[2020-05-10] VITALS (34 sets, daily range): BP systolic 114–192; BP diastolic 52–93
[2020-05-10] MEDS: MEROPENEM 1 GM VIAL IVP SCH ×3 (00:06→16:38)
[2020-05-10] MEDS: SUCRALFATE 1 GM TABLET NG SCH ×4 (00:08→21:31)
[2020-05-10] MEDS: PROPOFOL 1000 MG/100 ML 100 ML IV PRN ×2 (05:10→22:24)
[2020-05-10] MEDS: FENTANYL 2500MCG+NS 250ML 250 ML IV SCH (05:13)
[2020-05-10 06:13] LABS: BASOPHILS % (AUTO) 1.4 % (0.0-5.0); EOSINOPHILS % (AUTO) 4.7 % (0.0-8.0); HEMATOCRIT 30.3 % (42-54); LYMPHOCYTES % (AUTO) 21.6 % (21.0-51.0); MEAN CORPUSCULAR HEMOGLOBIN 27.6 pg (27.0-33.0); MEAN CORPUSCULAR HGB CONC 32.3 g/dL (32.0-36.0); MEAN CORPUSCULAR VOLUME 85.4 fL (79-99); MONOCYTES % (AUTO) 6.4 % (3.0-13.0); NEUTROPHILS % (AUTO) 60.8 % (40.0-77.0); PLATELET COUNT (AUTO) 529 K/uL (130-400); RED BLOOD CELL COUNT(AUTO) 3.55 MIL/uL (4.50-6.20); RED CELL DISTRIBUTION WIDTH 19.1 % (11.0-15.5); WHITE BLOOD COUNT (AUTO) 8.4 K/uL (4.8-10.8)
[2020-05-10 06:21] LABS: CREATININE 0.5 mg/dL (0.5-1.5); POTASSIUM 4.3 mmol/L (3.5-5.1)
[2020-05-10] MEDS: LEVOTHYROXINE 150 MCG TABLET PO SCH (06:23)
[2020-05-10 07:18] LABS: ABG HCO3 35.9 mmol/L (21.0-28.0); ABG OXYGEN SATURATION 97.1 % (95.0-99.0); ABG PCO2 58 mmHg (35-48)
[2020-05-10] MEDS: QUETIAPINE FUMARATE 25 MG TAB NG SCH ×2 (08:11→21:31)
[2020-05-10] MEDS: LACTULOSE 20 GM/30 ML UDCUP PO SCH ×2 (08:12→21:31)
[2020-05-10] MEDS: PANTOPRAZOLE 40 MG/VIAL IV SCH ×2 (08:14→21:31)
[2020-05-10] MEDS: FLUCONAZOLE 200 MG/NS 100 ML 100 ML IV SCH (08:14)
[2020-05-10] MEDS: INSULIN GLARGINE 100 UNITS/ML 10 ML VIAL SQ SCH (08:14)
[2020-05-10] MEDS: LINEZOLID 600 MG/ISO-OSM 300 ML IV SCH ×2 (09:14→21:35)
[2020-05-10] MEDS: NYSTATIN 15 GM OINT TP SCH ×2 (09:26→22:20)
[2020-05-10] MEDS: LABETALOL HCL 200 MG TABLET PO SCH ×2 (09:49→21:31)
[2020-05-10] MEDS ORDERED: INSULIN HUMULIN R 100 UNIT/ML 3ML SQ SCH ×2 (12:00→16:30)
[2020-05-10] MEDS ORDERED: PHARMACY COMMUNICATION MISC SCH ×2 (17:45→18:00)
[2020-05-10] MEDS: INSULIN HUMULIN R 100 UNIT/ML 3ML SQ SCH ×2 (18:00→18:45)
[2020-05-10] MEDS: ENOXAPARIN SODIUM 40 MG/0.4 ML SYRINGE SQ SCH (21:33)
[2020-05-11] VITALS (35 sets, daily range): BP systolic 98–195; BP diastolic 40–91
[2020-05-11] MEDS: SUCRALFATE 1 GM TABLET NG SCH ×4 (01:19→22:50)
[2020-05-11] MEDS: MEROPENEM 1 GM VIAL IVP SCH ×3 (01:19→18:11)
[2020-05-11] MEDS: INSULIN HUMULIN R 100 UNIT/ML 3ML SQ SCH ×8 (01:21→18:14)
[2020-05-11 05:58] LABS: BASOPHILS % (AUTO) 1.2 % (0.0-5.0); HEMATOCRIT 30.4 % (42-54); LYMPHOCYTES % (AUTO) 18.1 % (21.0-51.0); MEAN CORPUSCULAR HEMOGLOBIN 27.7 pg (27.0-33.0); MEAN CORPUSCULAR HGB CONC 32.6 g/dL (32.0-36.0); MEAN CORPUSCULAR VOLUME 85.2 fL (79-99); MONOCYTES % (AUTO) 6.8 % (3.0-13.0); NEUTROPHILS % (AUTO) 68.1 % (40.0-77.0); PLATELET COUNT (AUTO) 529 K/uL (130-400); RED BLOOD CELL COUNT(AUTO) 3.57 MIL/uL (4.50-6.20); RED CELL DISTRIBUTION WIDTH 19.1 % (11.0-15.5); WHITE BLOOD COUNT (AUTO) 10.7 K/uL (4.8-10.8)
[2020-05-11 06:16] LABS: CREATININE 0.5 mg/dL (0.5-1.5); POTASSIUM 4.8 mmol/L (3.5-5.1)
[2020-05-11] MEDS: FENTANYL 2500MCG+NS 250ML 250 ML IV SCH (06:17)
[2020-05-11] MEDS: LEVOTHYROXINE 150 MCG TABLET PO SCH (06:19)
[2020-05-11] MEDS: INSULIN GLARGINE 100 UNITS/ML 10 ML VIAL SQ SCH (06:20)
[2020-05-11] MEDS: PROPOFOL 1000 MG/100 ML 100 ML IV PRN (06:28)
[2020-05-11 07:31] LABS: ABG BASE EXCESS 8.9 mmol/L (-2.0-3.0); ABG HCO3 34.1 mmol/L (21.0-28.0); ABG OXYGEN SATURATION 90.9 % (95.0-99.0); ABG PCO2 48 mmHg (35-48)
[2020-05-11] MEDS: LABETALOL HCL 200 MG TABLET PO SCH ×2 (08:49→22:50)
[2020-05-11] MEDS: QUETIAPINE FUMARATE 25 MG TAB NG SCH ×2 (08:49→22:50)
[2020-05-11] MEDS: LACTULOSE 20 GM/30 ML UDCUP PO SCH ×2 (08:55→21:00)
[2020-05-11] MEDS: FLUCONAZOLE 200 MG/NS 100 ML 100 ML IV SCH (08:55)
[2020-05-11] MEDS: LINEZOLID 600 MG/ISO-OSM 300 ML IV SCH ×2 (08:56→22:51)
[2020-05-11] MEDS: PANTOPRAZOLE 40 MG/VIAL IV SCH ×2 (08:56→22:53)
[2020-05-11] MEDS: ENOXAPARIN SODIUM 40 MG/0.4 ML SYRINGE SQ SCH ×2 (08:57→22:51)
[2020-05-11] MEDS: NYSTATIN 15 GM OINT TP SCH ×2 (08:58→22:54)
[2020-05-11] MEDS ORDERED: PROPOFOL 1000 MG/100 ML 100 ML IV PRN (20:30)
[2020-05-12] VITALS (34 sets, daily range): BP systolic 86–149; BP diastolic 38–58
[2020-05-12] MEDS: SUCRALFATE 1 GM TABLET NG SCH ×4 (02:00→21:18)
[2020-05-12] MEDS: MEROPENEM 1 GM VIAL IVP SCH ×3 (02:00→16:29)
[2020-05-12] MEDS: INSULIN HUMULIN R 100 UNIT/ML 3ML SQ SCH ×8 (02:49→18:00)
[2020-05-12] MEDS: LEVOTHYROXINE 150 MCG TABLET PO SCH (06:12)
[2020-05-12] MEDS: MIDAZOLAM 100MG-0.9% NS 100ML 100 ML IV PRN (06:13)
[2020-05-12] MEDS: INSULIN GLARGINE 100 UNITS/ML 10 ML VIAL SQ SCH (06:31)
[2020-05-12] MEDS: FENTANYL 2500MCG+NS 250ML 250 ML IV SCH (07:43)
[2020-05-12] MEDS: PANTOPRAZOLE 40 MG/VIAL IV SCH ×2 (08:15→21:18)
[2020-05-12] MEDS: LABETALOL HCL 200 MG TABLET PO SCH ×2 (08:16→22:42)
[2020-05-12] MEDS: QUETIAPINE FUMARATE 25 MG TAB NG SCH ×2 (08:20→21:18)
[2020-05-12] MEDS: FLUCONAZOLE 200 MG/NS 100 ML 100 ML IV SCH (08:21)
[2020-05-12] MEDS: ENOXAPARIN SODIUM 40 MG/0.4 ML SYRINGE SQ SCH ×2 (08:21→21:20)
[2020-05-12] MEDS: LINEZOLID 600 MG/ISO-OSM 300 ML IV SCH ×2 (08:21→21:18)
[2020-05-12 08:23] LABS: BASOPHILS % (AUTO) 0.8 % (0.0-5.0); EOSINOPHILS % (AUTO) 1.2 % (0.0-8.0); HEMATOCRIT 28.1 % (42-54); LYMPHOCYTES % (AUTO) 13.8 % (21.0-51.0); MEAN CORPUSCULAR HEMOGLOBIN 27.5 pg (27.0-33.0); MEAN CORPUSCULAR HGB CONC 32.7 g/dL (32.0-36.0); MEAN CORPUSCULAR VOLUME 84.1 fL (79-99); MONOCYTES % (AUTO) 6.4 % (3.0-13.0); NEUTROPHILS % (AUTO) 76.7 % (40.0-77.0); NUCLEATED RED BLOOD CELLS 0.1 % (0.0-0.19); PLATELET COUNT (AUTO) 623 K/uL (130-400); RED BLOOD CELL COUNT(AUTO) 3.34 MIL/uL (4.50-6.20); RED CELL DISTRIBUTION WIDTH 18.9 % (11.0-15.5); WHITE BLOOD COUNT (AUTO) 15.4 K/uL (4.8-10.8)
[2020-05-12 08:47] LABS: ALBUMIN 2.2 g/dL (3.5-5.0); BILIRUBIN,TOTAL 0.4 mg/dL (0.2-1.0); CREATININE 0.7 mg/dL (0.5-1.5); POTASSIUM 4.1 mmol/L (3.5-5.1); TOTAL PROTEIN, SERUM 7.1 g/dL (6.0-8.3)
[2020-05-12] MEDS: LACTULOSE 20 GM/30 ML UDCUP PO SCH ×2 (08:48→21:20)
[2020-05-12] MEDS: NYSTATIN 15 GM OINT TP SCH ×2 (13:41→21:21)
[2020-05-13] VITALS (36 sets, daily range): BP systolic 99–162; BP diastolic 38–100
[2020-05-13] MEDS: MEROPENEM 1 GM VIAL IVP SCH ×4 (01:28→23:46)
[2020-05-13] MEDS: SUCRALFATE 1 GM TABLET NG SCH ×4 (01:28→20:14)
[2020-05-13] MEDS: INSULIN HUMULIN R 100 UNIT/ML 3ML SQ SCH ×8 (01:32→17:23)
[2020-05-13 06:08] LABS: BASOPHILS % (AUTO) 0.9 % (0.0-5.0); EOSINOPHILS % (AUTO) 2.7 % (0.0-8.0); HEMATOCRIT 24.2 % (42-54); LYMPHOCYTES % (AUTO) 14.6 % (21.0-51.0); MEAN CORPUSCULAR HGB CONC 32.6 g/dL (32.0-36.0); MEAN CORPUSCULAR VOLUME 85.8 fL (79-99); MONOCYTES % (AUTO) 7.3 % (3.0-13.0); NEUTROPHILS % (AUTO) 73.8 % (40.0-77.0); PLATELET COUNT (AUTO) 593 K/uL (130-400); RED BLOOD CELL COUNT(AUTO) 2.82 MIL/uL (4.50-6.20); RED CELL DISTRIBUTION WIDTH 19.1 % (11.0-15.5); WHITE BLOOD COUNT (AUTO) 13.5 K/uL (4.8-10.8)
[2020-05-13 06:34] LABS: CREATININE 0.7 mg/dL (0.5-1.5)
[2020-05-13] MEDS: LEVOTHYROXINE 150 MCG TABLET PO SCH (06:34)
[2020-05-13] MEDS: INSULIN GLARGINE 100 UNITS/ML 10 ML VIAL SQ SCH (06:37)
[2020-05-13] MEDS: LINEZOLID 600 MG/ISO-OSM 300 ML IV SCH ×2 (07:31→20:14)
[2020-05-13] MEDS: PANTOPRAZOLE 40 MG/VIAL IV SCH ×2 (08:01→20:14)
[2020-05-13] MEDS: QUETIAPINE FUMARATE 25 MG TAB NG SCH ×2 (08:01→20:14)
[2020-05-13] MEDS: LABETALOL HCL 200 MG TABLET PO SCH ×2 (08:02→20:15)
[2020-05-13] MEDS: LACTULOSE 20 GM/30 ML UDCUP PO SCH ×2 (08:03→20:15)
[2020-05-13] MEDS: ENOXAPARIN SODIUM 40 MG/0.4 ML SYRINGE SQ SCH ×2 (08:03→20:17)
[2020-05-13] MEDS: NYSTATIN 15 GM OINT TP SCH ×2 (08:06→20:22)
[2020-05-13] MEDS: FLUCONAZOLE 200 MG/NS 100 ML 100 ML IV SCH (08:47)
[2020-05-13 12:14] LABS: INR 1.09 (0.85-1.15); PROTHROMBIN TIME 11.8 SEC (9.6-11.6)
[2020-05-13] MEDS: DEXMEDETOMIDINE HCL 400 MCG in 0.9%NACL 100ML 100 ML IV SCH ×2 (15:38→22:24)
[2020-05-14] VITALS (35 sets, daily range): BP systolic 92–168; BP diastolic 37–97
[2020-05-14] MEDS: INSULIN HUMULIN R 100 UNIT/ML 3ML SQ SCH ×8 (00:34→17:55)
[2020-05-14] MEDS: SUCRALFATE 1 GM TABLET NG SCH ×4 (00:36→18:28)
[2020-05-14] MEDS: ACETAMINOPHEN 650 MG/20.3 ML UDCUP PO PRN ×2 (02:50→08:20)
[2020-05-14 05:21] LABS: BASOPHILS % (AUTO) 0.9 % (0.0-5.0); EOSINOPHILS % (AUTO) 5.1 % (0.0-8.0); HEMATOCRIT 24.7 % (42-54); LYMPHOCYTES % (AUTO) 15.6 % (21.0-51.0); MEAN CORPUSCULAR HEMOGLOBIN 27.8 pg (27.0-33.0); MONOCYTES % (AUTO) 8.1 % (3.0-13.0); NEUTROPHILS % (AUTO) 69.6 % (40.0-77.0); PLATELET COUNT (AUTO) 550 K/uL (130-400); RED BLOOD CELL COUNT(AUTO) 2.84 MIL/uL (4.50-6.20); RED CELL DISTRIBUTION WIDTH 18.6 % (11.0-15.5); WHITE BLOOD COUNT (AUTO) 10.3 K/uL (4.8-10.8)
[2020-05-14] MEDS: DEXMEDETOMIDINE HCL 400 MCG in 0.9%NACL 100ML 100 ML IV SCH ×3 (05:24→18:29)
[2020-05-14 05:36] LABS: ALBUMIN 1.9 g/dL (3.5-5.0); BILIRUBIN,TOTAL 0.4 mg/dL (0.2-1.0); CREATININE 0.6 mg/dL (0.5-1.5); POTASSIUM 3.9 mmol/L (3.5-5.1); TOTAL PROTEIN, SERUM 6.4 g/dL (6.0-8.3)
[2020-05-14 06:00] LABS: CRP QUANTITATIVE 272.4 mg/L (0.00-9.0)
[2020-05-14] MEDS: LEVOTHYROXINE 150 MCG TABLET PO SCH (06:21)
[2020-05-14] MEDS: INSULIN GLARGINE 100 UNITS/ML 10 ML VIAL SQ SCH (06:36)
[2020-05-14 06:43] LABS: ABG BASE EXCESS 9.4 mmol/L (-2.0-3.0); ABG HCO3 36.5 mmol/L (21.0-28.0); ABG OXYGEN SATURATION 97.8 % (95.0-99.0); ABG PCO2 59 mmHg (35-48)
[2020-05-14 08:14] LABS: MAGNESIUM 1.8 mg/dL (1.80-2.40); PHOSPHORUS 1.5 mg/dL (2.5-4.9)
[2020-05-14] MEDS: MEROPENEM 1 GM VIAL IVP SCH ×2 (08:20→16:33)
[2020-05-14] MEDS: PANTOPRAZOLE 40 MG/VIAL IV SCH ×2 (08:20→21:41)
[2020-05-14] MEDS: FLUCONAZOLE 200 MG/NS 100 ML 100 ML IV SCH (08:20)
[2020-05-14] MEDS: QUETIAPINE FUMARATE 25 MG TAB NG SCH ×2 (08:20→21:41)
[2020-05-14] MEDS: LABETALOL HCL 200 MG TABLET PO SCH ×2 (08:20→21:41)
[2020-05-14] MEDS: LINEZOLID 600 MG/ISO-OSM 300 ML IV SCH ×2 (08:20→21:51)
[2020-05-14] MEDS: ENOXAPARIN SODIUM 40 MG/0.4 ML SYRINGE SQ SCH ×2 (08:21→21:40)
[2020-05-14] MEDS: LACTULOSE 20 GM/30 ML UDCUP PO SCH ×2 (08:23→21:00)
[2020-05-14] MEDS: HONEY 1 APPL/ML TUBE TP SCH ×2 (09:37→21:44)
[2020-05-14] MEDS: NYSTATIN 15 GM OINT TP SCH ×2 (09:37→21:45)
[2020-05-14] MEDS ORDERED: SOD PHOSPHATE IV PRN (11:30)
[2020-05-14] MEDS ORDERED: NACL 0.9% IV PRN ×2 (11:30)
[2020-05-14] MEDS ORDERED: POTASSIUM PHOSPHATE IV PRN (11:30)
[2020-05-14] MEDS ORDERED: [UNRECOGNIZED DRUG - OTHER] IV PRN (11:30)
[2020-05-14] MEDS: MAGNESIUM 2GM PREMIX 50ML 50 ML IV SCH (12:51)
[2020-05-14] MEDS: SOD PHOSPHATE IV PRN (12:52)
[2020-05-14] MEDS: POTASSIUM CHLORIDE 20MEQ/100ML 100 ML IV PRN (12:52)
[2020-05-14] MEDS: [UNRECOGNIZED DRUG - OTHER] IV PRN (12:52)
[2020-05-14] MEDS: NACL 0.9% IV PRN (12:52)
[2020-05-14] MEDS ORDERED: ALTEPLASE 2MG VIAL 2 MG/VIAL VIAL IVCATH SCH (17:50)
[2020-05-15] VITALS (41 sets, daily range): BP systolic 110–167; BP diastolic 40–118
[2020-05-15] MEDS: MEROPENEM 1 GM VIAL IVP SCH ×2 (01:08→21:16)
[2020-05-15] MEDS: ACETAMINOPHEN 650 MG/20.3 ML UDCUP PO PRN (01:08)
[2020-05-15] MEDS: SUCRALFATE 1 GM TABLET NG SCH ×4 (01:08→18:09)
[2020-05-15 01:26] LABS: PHOSPHORUS 2.2 mg/dL (2.5-4.9); POTASSIUM 3.9 mmol/L (3.5-5.1)
[2020-05-15] MEDS: INSULIN HUMULIN R 100 UNIT/ML 3ML SQ SCH ×8 (01:27→17:31)
[2020-05-15] MEDS: DEXMEDETOMIDINE HCL 400 MCG in 0.9%NACL 100ML 100 ML IV SCH ×4 (05:56→20:50)
[2020-05-15 05:58] LABS: BASOPHILS % (AUTO) 0.9 % (0.0-5.0); EOSINOPHILS % (AUTO) 4.6 % (0.0-8.0); HEMATOCRIT 22.8 % (42-54); LYMPHOCYTES % (AUTO) 16.7 % (21.0-51.0); MEAN CORPUSCULAR HEMOGLOBIN 27.9 pg (27.0-33.0); MEAN CORPUSCULAR HGB CONC 32.5 g/dL (32.0-36.0); MONOCYTES % (AUTO) 10.3 % (3.0-13.0); NEUTROPHILS % (AUTO) 66.9 % (40.0-77.0); PLATELET COUNT (AUTO) 549 K/uL (130-400); RED BLOOD CELL COUNT(AUTO) 2.65 MIL/uL (4.50-6.20); RED CELL DISTRIBUTION WIDTH 18.2 % (11.0-15.5); WHITE BLOOD COUNT (AUTO) 8.5 K/uL (4.8-10.8)
[2020-05-15] MEDS: LEVOTHYROXINE 150 MCG TABLET PO SCH (06:03)
[2020-05-15 06:12] LABS: POTASSIUM 3.5 mmol/L (3.5-5.1)
[2020-05-15] MEDS: INSULIN GLARGINE 100 UNITS/ML 10 ML VIAL SQ SCH (06:23)
[2020-05-15 06:38] LABS: CREATININE 0.5 mg/dL (0.5-1.5); CRP QUANTITATIVE 186.5 mg/L (0.00-9.0)
[2020-05-15 06:55] LABS: ABG BASE EXCESS 8.6 mmol/L (-2.0-3.0); ABG HCO3 34.5 mmol/L (21.0-28.0); ABG OXYGEN SATURATION 96.2 % (95.0-99.0); ABG PCO2 52 mmHg (35-48)
[2020-05-15 07:45] LABS: MAGNESIUM 1.9 mg/dL (1.80-2.40)
[2020-05-15] MEDS: POTASSIUM CHLORIDE 20MEQ/100ML 100 ML IV PRN ×2 (08:04→09:10)
[2020-05-15] MEDS: FLUCONAZOLE 200 MG/NS 100 ML 100 ML IV SCH (08:04)
[2020-05-15] MEDS: QUETIAPINE FUMARATE 25 MG TAB NG SCH ×2 (08:05→21:17)
[2020-05-15] MEDS: PANTOPRAZOLE 40 MG/VIAL IV SCH ×2 (08:05→21:17)
[2020-05-15] MEDS: LABETALOL HCL 200 MG TABLET PO SCH ×2 (08:05→21:17)
[2020-05-15] MEDS: LACTULOSE 20 GM/30 ML UDCUP PO SCH ×2 (08:06→21:00)
[2020-05-15] MEDS: ENOXAPARIN SODIUM 40 MG/0.4 ML SYRINGE SQ SCH ×2 (08:06→21:17)
[2020-05-15] MEDS: NYSTATIN 15 GM OINT TP SCH ×2 (08:07→21:18)
[2020-05-15] MEDS: HONEY 1 APPL/ML TUBE TP SCH ×2 (08:07→21:18)
[2020-05-15 11:24] LABS: RETICULOCYTE % (AUTO) 1.56 % (0.42-2.23)
[2020-05-15 11:32] LABS: % IRON SATURATION 15.3 % (30-44)
[2020-05-15] MEDS ORDERED: MEROPENEM 1 GM VIAL IVP SCH (12:30)
[2020-05-15] MEDS ORDERED: COMPOUND IV MISC 1 EACH IVSOLN MISC PRN (13:30)
[2020-05-15] MEDS: IRON SUCROSE COMPLEX 100 MG in 0.9%NACL 50ML 50 ML IV SCH (14:22)
[2020-05-15 15:50] LABS: CREATININE 0.5 mg/dL (0.5-1.5); MAGNESIUM 1.9 mg/dL (1.80-2.40); PHOSPHORUS 3.8 mg/dL (2.5-4.9); POTASSIUM 4.2 mmol/L (3.5-5.1)
[2020-05-15] MEDS: FUROSEMIDE 100MG VIAL IVP SCH (21:17)
[2020-05-16] VITALS (49 sets, daily range): BP systolic 119–177; BP diastolic 47–78
[2020-05-16] MEDS: INSULIN HUMULIN R 100 UNIT/ML 3ML SQ SCH ×10 (00:34→23:24)
[2020-05-16] MEDS: SUCRALFATE 1 GM TABLET NG SCH ×4 (00:48→18:28)
[2020-05-16] MEDS: DEXMEDETOMIDINE HCL 400 MCG in 0.9%NACL 100ML 100 ML IV SCH ×5 (00:54→23:16)
[2020-05-16] MEDS: LEVOTHYROXINE 150 MCG TABLET PO SCH (05:53)
[2020-05-16] MEDS: MEROPENEM 1 GM VIAL IVP SCH (05:53)
[2020-05-16] MEDS: INSULIN GLARGINE 100 UNITS/ML 10 ML VIAL SQ SCH (06:00)
[2020-05-16 06:45] LABS: ABG BASE EXCESS 7.2 mmol/L (-2.0-3.0); ABG HCO3 31.6 mmol/L (21.0-28.0); ABG OXYGEN SATURATION 95.8 % (95.0-99.0); ABG PCO2 44 mmHg (35-48)
[2020-05-16 07:34] LABS: ALBUMIN 2.1 g/dL (3.5-5.0); BILIRUBIN,TOTAL 0.3 mg/dL (0.2-1.0); CREATININE 0.6 mg/dL (0.5-1.5); CRP QUANTITATIVE 147.7 mg/L (0.00-9.0); MAGNESIUM 1.7 mg/dL (1.80-2.40); PHOSPHORUS 2.1 mg/dL (2.5-4.9); TOTAL PROTEIN, SERUM 6.6 g/dL (6.0-8.3)
[2020-05-16 07:34] LABS: HEMATOCRIT 23.3 % (42-54); MEAN CORPUSCULAR HGB CONC 33.5 g/dL (32.0-36.0); MEAN CORPUSCULAR VOLUME 86.6 fL (79-99); NUCLEATED RED BLOOD CELLS 0.5 % (0.0-0.19); PLATELET COUNT (AUTO) 614 K/uL (130-400); RED BLOOD CELL COUNT(AUTO) 2.69 MIL/uL (4.50-6.20); RED CELL DISTRIBUTION WIDTH 18.3 % (11.0-15.5); WHITE BLOOD COUNT (AUTO) 8.8 K/uL (4.8-10.8)
[2020-05-16] MEDS ORDERED: CALCIUM GLUC 1GM 1 GM in 0.9%NACL 100ML 100 ML IV PRN (07:45)
[2020-05-16] MEDS: IRON SUCROSE COMPLEX 100 MG in 0.9%NACL 50ML 50 ML IV SCH (07:57)
[2020-05-16] MEDS: FLUCONAZOLE 200 MG/NS 100 ML 100 ML IV SCH (07:58)
[2020-05-16] MEDS: ACETAMINOPHEN 650 MG/20.3 ML UDCUP PO PRN (08:01)
[2020-05-16] MEDS: ENOXAPARIN SODIUM 40 MG/0.4 ML SYRINGE SQ SCH ×2 (08:01→19:57)
[2020-05-16] MEDS: FUROSEMIDE 100MG VIAL IVP SCH ×2 (08:02→19:56)
[2020-05-16] MEDS: PANTOPRAZOLE 40 MG/VIAL IV SCH ×2 (08:02→19:55)
[2020-05-16] MEDS: QUETIAPINE FUMARATE 25 MG TAB NG SCH ×2 (08:03→19:55)
[2020-05-16] MEDS: FENTANYL CITRATE PF 50 MCG/1 ML 2ML VIAL IVP PRN (08:03)
[2020-05-16] MEDS: LABETALOL HCL 200 MG TABLET PO SCH ×2 (08:03→19:56)
[2020-05-16] MEDS: LACTULOSE 20 GM/30 ML UDCUP PO SCH ×2 (08:04→19:55)
[2020-05-16] MEDS: HONEY 1 APPL/ML TUBE TP SCH ×2 (08:04→19:57)
[2020-05-16] MEDS: NYSTATIN 15 GM OINT TP SCH ×2 (08:04→19:57)
[2020-05-16 08:26] LABS: LYMPHOCYTES % (MANUAL) 12 % (22-44); MAN.DIFF COMMENT-IMPRESSION MANUAL DIFFERENTIAL; MONOCYTES % (MANUAL) 17 % (2-9); SEGMENTED NEUTROPHILS % 71 % (40-70)
[2020-05-16 08:27] LABS: PLATELET MORPHOLOGY COMMENT SLIGHT INCREASED
[2020-05-16] MEDS: CALCIUM GLUC 1GM 1 GM in 0.9%NACL 100ML 100 ML IV PRN ×2 (08:30→18:27)
[2020-05-16] MEDS: ZOSYN 3.375GM+NS 50ML 50 ML IV SCH ×2 (09:00→17:00)
[2020-05-16] MEDS: MAGNESIUM 2GM PREMIX 50ML 50 ML IV SCH (09:10)
[2020-05-16] MEDS: [UNRECOGNIZED DRUG - OTHER] IV PRN (09:47)
[2020-05-16] MEDS: SOD PHOSPHATE IV PRN (09:47)
[2020-05-16] MEDS: NACL 0.9% IV PRN (09:47)
[2020-05-16] MEDS ORDERED: PHARMACY COMMUNICATION MISC SCH (10:00)
[2020-05-16 17:22] LABS: CREATININE 0.5 mg/dL (0.5-1.5); POTASSIUM 4.1 mmol/L (3.5-5.1)
[2020-05-17] VITALS (52 sets, daily range): BP systolic 132–186; BP diastolic 52–94
[2020-05-17] MEDS: ZOSYN 3.375GM+NS 50ML 50 ML IV SCH ×3 (00:48→17:00)
[2020-05-17] MEDS: SUCRALFATE 1 GM TABLET NG SCH ×4 (00:48→17:47)
[2020-05-17] MEDS: FENTANYL CITRATE PF 50 MCG/1 ML 2ML VIAL IVP PRN (01:43)
[2020-05-17] MEDS ORDERED: ONDANSETRON 4MG INJ ONE (02:28)
[2020-05-17] MEDS: ONDANSETRON 4MG INJ IVP SCH (02:30)
[2020-05-17] MEDS: DEXMEDETOMIDINE HCL 400 MCG in 0.9%NACL 100ML 100 ML IV SCH ×5 (03:39→21:24)
[2020-05-17] MEDS ORDERED: LABETALOL 20MG SYG IV PRN (04:00)
[2020-05-17] MEDS ORDERED: LORAZEPAM 2 MG/ML 1 ML VIAL IVP ONE (04:00)
[2020-05-17] MEDS ORDERED: LORAZEPAM 2 MG/ML 1 ML VIAL ONE (04:04)
[2020-05-17 04:26] LABS: HEMATOCRIT 24.8 % (42-54); MEAN CORPUSCULAR HEMOGLOBIN 27.9 pg (27.0-33.0); MEAN CORPUSCULAR HGB CONC 32.7 g/dL (32.0-36.0); MEAN CORPUSCULAR VOLUME 85.5 fL (79-99); NUCLEATED RED BLOOD CELLS 0.4 % (0.0-0.19); PLATELET COUNT (AUTO) 624 K/uL (130-400); WHITE BLOOD COUNT (AUTO) 10.4 K/uL (4.8-10.8)
[2020-05-17 04:38] LABS: ALBUMIN 2.2 g/dL (3.5-5.0); BILIRUBIN,TOTAL 0.4 mg/dL (0.2-1.0); CREATININE 0.6 mg/dL (0.5-1.5); MAGNESIUM 1.4 mg/dL (1.80-2.40); PHOSPHORUS 3.3 mg/dL (2.5-4.9); TOTAL PROTEIN, SERUM 6.8 g/dL (6.0-8.3)
[2020-05-17 05:11] LABS: BAND NEUTROPHILS % (MANUAL) 1 % (0-2); BASOPHILS % (MANUAL) 2 % (0-2); EOSINOPHILS % (MANUAL) 4 % (1-6); LYMPHOCYTES % (MANUAL) 14 % (22-44); MAN.DIFF COMMENT-IMPRESSION MANUAL DIFFERENTIAL; MONOCYTES % (MANUAL) 4 % (2-9); SEGMENTED NEUTROPHILS % 75 % (40-70)
[2020-05-17 05:12] LABS: PLATELET MORPHOLOGY COMMENT SLIGHT INCREASED
[2020-05-17] MEDS: MAGNESIUM 2GM PREMIX 50ML 50 ML IV SCH (05:41)
[2020-05-17] MEDS: LEVOTHYROXINE 150 MCG TABLET PO SCH (06:38)
[2020-05-17] MEDS: INSULIN HUMULIN R 100 UNIT/ML 3ML SQ SCH ×6 (06:43→17:47)
[2020-05-17] MEDS: INSULIN GLARGINE 100 UNITS/ML 10 ML VIAL SQ SCH (06:45)
[2020-05-17 06:58] LABS: ABG BASE EXCESS 6.1 mmol/L (-2.0-3.0); ABG HCO3 30.7 mmol/L (21.0-28.0); ABG OXYGEN SATURATION 94.6 % (95.0-99.0); ABG PCO2 44 mmHg (35-48)
[2020-05-17] MEDS: FLUCONAZOLE 200 MG/NS 100 ML 100 ML IV SCH (08:10)
[2020-05-17] MEDS: IRON SUCROSE COMPLEX 100 MG in 0.9%NACL 50ML 50 ML IV SCH (08:11)
[2020-05-17] MEDS: CALCIUM GLUC 1GM 1 GM in 0.9%NACL 100ML 100 ML IV PRN (08:11)
[2020-05-17] MEDS: LACTULOSE 20 GM/30 ML UDCUP PO SCH (09:00)
[2020-05-17] MEDS: ENOXAPARIN SODIUM 40 MG/0.4 ML SYRINGE SQ SCH ×2 (09:00→21:00)
[2020-05-17] MEDS: LABETALOL HCL 200 MG TABLET PO SCH ×2 (09:03→21:19)
[2020-05-17] MEDS: QUETIAPINE FUMARATE 25 MG TAB NG SCH (09:03)
[2020-05-17] MEDS: PANTOPRAZOLE 40 MG/VIAL IV SCH ×2 (09:03→21:19)
[2020-05-17] MEDS: FUROSEMIDE 100MG VIAL IVP SCH (09:03)
[2020-05-17] MEDS: NYSTATIN 15 GM OINT TP SCH (09:04)
[2020-05-17] MEDS: HONEY 1 APPL/ML TUBE TP SCH ×2 (09:04→21:21)
[2020-05-17] MEDS ORDERED: ALTEPLASE 2MG VIAL 2 MG/VIAL VIAL IVCATH SCH (10:15)
[2020-05-17 12:07] LABS: CREATININE 0.6 mg/dL (0.5-1.5); MAGNESIUM 2.1 mg/dL (1.80-2.40)
[2020-05-17] MEDS ORDERED: LACTULOSE 20 GM/30 ML UDCUP PO PRN (16:45)
[2020-05-17] MEDS ORDERED: PHARMACY COMMUNICATION MISC SCH (16:45)
[2020-05-17] MEDS ORDERED: SUCRALFATE 1 GM TABLET NG SCH (18:34)
[2020-05-17] MEDS: QUETIAPINE FUMARATE 25 MG TAB PO SCH (21:20)
[2020-05-18] VITALS (61 sets, daily range): BP systolic 110–179; BP diastolic 41–70
[2020-05-18] MEDS: ONDANSETRON 4MG INJ IVP SCH (00:25)
[2020-05-18] MEDS: INSULIN HUMULIN R 100 UNIT/ML 3ML SQ SCH ×8 (00:30→17:00)
[2020-05-18] MEDS: ZOSYN 3.375GM+NS 50ML 50 ML IV SCH ×3 (00:42→16:28)
[2020-05-18] MEDS: SUCRALFATE 1 GM TABLET NG SCH ×4 (00:42→16:28)
[2020-05-18] MEDS: ZOLPIDEM TARTRATE 5 MG TAB PO PRN (00:42)
[2020-05-18] MEDS: DEXMEDETOMIDINE HCL 400 MCG in 0.9%NACL 100ML 100 ML IV SCH ×3 (02:37→13:33)
[2020-05-18 05:35] LABS: BASOPHILS % (AUTO) 1.3 % (0.0-5.0); EOSINOPHILS % (AUTO) 3.6 % (0.0-8.0); HEMATOCRIT 23.8 % (42-54); LYMPHOCYTES % (AUTO) 23.2 % (21.0-51.0); MEAN CORPUSCULAR HEMOGLOBIN 28.1 pg (27.0-33.0); MEAN CORPUSCULAR HGB CONC 32.8 g/dL (32.0-36.0); MEAN CORPUSCULAR VOLUME 85.6 fL (79-99); NEUTROPHILS % (AUTO) 60.8 % (40.0-77.0); NUCLEATED RED BLOOD CELLS 0.2 % (0.0-0.19); PLATELET COUNT (AUTO) 603 K/uL (130-400); RED BLOOD CELL COUNT(AUTO) 2.78 MIL/uL (4.50-6.20); RED CELL DISTRIBUTION WIDTH 17.9 % (11.0-15.5); WHITE BLOOD COUNT (AUTO) 11.6 K/uL (4.8-10.8)
[2020-05-18 05:49] LABS: ALBUMIN 2.2 g/dL (3.5-5.0); BILIRUBIN,TOTAL 0.4 mg/dL (0.2-1.0); CREATININE 0.7 mg/dL (0.5-1.5); CRP QUANTITATIVE 117.8 mg/L (0.00-9.0); POTASSIUM 3.8 mmol/L (3.5-5.1); TOTAL PROTEIN, SERUM 6.8 g/dL (6.0-8.3)
[2020-05-18] MEDS: LEVOTHYROXINE 150 MCG TABLET PO SCH (06:02)
[2020-05-18] MEDS: POTASSIUM CHLORIDE 20MEQ/100ML 100 ML IV PRN (06:27)
[2020-05-18] MEDS: INSULIN GLARGINE 100 UNITS/ML 10 ML VIAL SQ SCH (07:00)
[2020-05-18 07:06] LABS: ABG BASE EXCESS 4.6 mmol/L (-2.0-3.0); ABG HCO3 29.1 mmol/L (21.0-28.0); ABG OXYGEN SATURATION 94.3 % (95.0-99.0); ABG PCO2 43 mmHg (35-48)
[2020-05-18] MEDS: IRON SUCROSE COMPLEX 100 MG in 0.9%NACL 50ML 50 ML IV SCH (08:47)
[2020-05-18] MEDS: FLUCONAZOLE 200 MG/NS 100 ML 100 ML IV SCH (08:47)
[2020-05-18] MEDS: PANTOPRAZOLE 40 MG/VIAL IV SCH ×2 (08:48→21:25)
[2020-05-18] MEDS: QUETIAPINE FUMARATE 25 MG TAB NG SCH (09:00)
[2020-05-18] MEDS: SENNOSIDES 8.6 MG TABLET PO SCH (09:00)
[2020-05-18] MEDS: HONEY 1 APPL/ML TUBE TP SCH ×2 (09:00→21:15)
[2020-05-18] MEDS: LABETALOL HCL 200 MG TABLET PO SCH ×2 (09:00→21:00)
[2020-05-18] MEDS: ENOXAPARIN SODIUM 40 MG/0.4 ML SYRINGE SQ SCH ×2 (09:00→21:12)
[2020-05-18] MEDS ORDERED: MIDAZOLAM HCL 1 MG/ML 2ML VIAL ONE (10:48)
[2020-05-18] MEDS ORDERED: MIDAZOLAM HCL 1 MG/ML 2ML VIAL IVP ONE (11:00)
[2020-05-18] MEDS ORDERED: MIDAZOLAM HCL 1 MG/ML 2ML VIAL IVP SCH (11:30)
[2020-05-18 13:50] LABS: CREATININE 0.6 mg/dL (0.5-1.5); MAGNESIUM 1.9 mg/dL (1.80-2.40); PHOSPHORUS 3.5 mg/dL (2.5-4.9); POTASSIUM 4.3 mmol/L (3.5-5.1)
[2020-05-18] MEDS: QUETIAPINE FUMARATE 25 MG TAB PO SCH (21:13)
[2020-05-19] VITALS (87 sets, daily range): BP systolic 103–176; BP diastolic 45–101
[2020-05-19] MEDS: SUCRALFATE 1 GM TABLET NG SCH ×4 (00:42→17:02)
[2020-05-19] MEDS: ZOSYN 3.375GM+NS 50ML 50 ML IV SCH ×3 (00:43→16:59)
[2020-05-19] MEDS: INSULIN HUMULIN R 100 UNIT/ML 3ML SQ SCH ×8 (00:44→17:04)
[2020-05-19] MEDS: DEXMEDETOMIDINE HCL 400 MCG in 0.9%NACL 100ML 100 ML IV SCH ×4 (00:59→19:29)
[2020-05-19] MEDS: ONDANSETRON 4MG INJ IVP SCH (01:03)
[2020-05-19 05:34] LABS: BASOPHILS % (AUTO) 1.5 % (0.0-5.0); EOSINOPHILS % (AUTO) 6.3 % (0.0-8.0); HEMATOCRIT 25.3 % (42-54); LYMPHOCYTES % (AUTO) 31.6 % (21.0-51.0); MEAN CORPUSCULAR HEMOGLOBIN 27.8 pg (27.0-33.0); MEAN CORPUSCULAR HGB CONC 32.4 g/dL (32.0-36.0); MEAN CORPUSCULAR VOLUME 85.8 fL (79-99); MONOCYTES % (AUTO) 8.6 % (3.0-13.0); NEUTROPHILS % (AUTO) 51.1 % (40.0-77.0); PLATELET COUNT (AUTO) 566 K/uL (130-400); RED BLOOD CELL COUNT(AUTO) 2.95 MIL/uL (4.50-6.20); RED CELL DISTRIBUTION WIDTH 18.5 % (11.0-15.5); WHITE BLOOD COUNT (AUTO) 10.3 K/uL (4.8-10.8)
[2020-05-19 05:50] LABS: ALBUMIN 2.3 g/dL (3.5-5.0); BILIRUBIN,TOTAL 0.4 mg/dL (0.2-1.0); CREATININE 0.6 mg/dL (0.5-1.5); TOTAL PROTEIN, SERUM 7.2 g/dL (6.0-8.3)
[2020-05-19] MEDS: INSULIN GLARGINE 100 UNITS/ML 10 ML VIAL SQ SCH (07:34)
[2020-05-19] MEDS: QUETIAPINE FUMARATE 25 MG TAB NG SCH (08:02)
[2020-05-19] MEDS: FLUCONAZOLE 200 MG/NS 100 ML 100 ML IV SCH (08:03)
[2020-05-19] MEDS: IRON SUCROSE COMPLEX 100 MG in 0.9%NACL 50ML 50 ML IV SCH (08:03)
[2020-05-19] MEDS: SENNOSIDES 8.6 MG TABLET PO SCH (08:03)
[2020-05-19] MEDS: LABETALOL HCL 200 MG TABLET PO SCH ×2 (08:08→21:00)
[2020-05-19] MEDS: PANTOPRAZOLE 40 MG/VIAL IV SCH ×2 (08:08→20:48)
[2020-05-19] MEDS: ENOXAPARIN SODIUM 40 MG/0.4 ML SYRINGE SQ SCH ×2 (08:09→20:49)
[2020-05-19] MEDS: HONEY 1 APPL/ML TUBE TP SCH ×2 (08:10→20:49)
[2020-05-19 08:40] LABS: ABG BASE EXCESS 1.2 mmol/L (-2.0-3.0); ABG HCO3 25.4 mmol/L (21.0-28.0); ABG OXYGEN SATURATION 97.4 % (95.0-99.0); ABG PCO2 39 mmHg (35-48)
[2020-05-19] MEDS: FENTANYL CITRATE PF 50 MCG/1 ML 2ML VIAL IVP PRN (12:55)
[2020-05-19] MEDS ORDERED: GUAIFENESIN-CODEINE 5 ML SYRUP ONE (13:14)
[2020-05-19] MEDS: GUAIFENESIN-CODEINE 5 ML SYRUP PO PRN ×2 (13:22→17:00)
[2020-05-19] MEDS: QUETIAPINE FUMARATE 25 MG TAB PO SCH (20:48)
[2020-05-20] VITALS (25 sets, daily range): BP systolic 151–184; BP diastolic 53–100
[2020-05-20] MEDS: SUCRALFATE 1 GM TABLET NG SCH ×3 (00:50→12:38)
[2020-05-20] MEDS ORDERED: ENALAPRILAT DIHYDRATE 1.25MG/ML 1ML VIAL IV PRN (01:00)
[2020-05-20] MEDS: ZOSYN 3.375GM+NS 50ML 50 ML IV SCH ×2 (01:00→08:48)
[2020-05-20] MEDS: ONDANSETRON 4MG INJ IVP SCH (01:43)
[2020-05-20] MEDS: ZOLPIDEM TARTRATE 5 MG TAB PO PRN (03:10)
[2020-05-20 05:29] LABS: BASOPHILS % (AUTO) 1.2 % (0.0-5.0); EOSINOPHILS % (AUTO) 7.1 % (0.0-8.0); HEMATOCRIT 25.8 % (42-54); LYMPHOCYTES % (AUTO) 28.9 % (21.0-51.0); MEAN CORPUSCULAR HGB CONC 32.6 g/dL (32.0-36.0); MONOCYTES % (AUTO) 8.6 % (3.0-13.0); PLATELET COUNT (AUTO) 561 K/uL (130-400); RED CELL DISTRIBUTION WIDTH 18.3 % (11.0-15.5); WHITE BLOOD COUNT (AUTO) 10.5 K/uL (4.8-10.8)
[2020-05-20] MEDS: INSULIN HUMULIN R 100 UNIT/ML 3ML SQ SCH ×6 (05:36→12:46)
[2020-05-20] MEDS: DEXMEDETOMIDINE HCL 400 MCG in 0.9%NACL 100ML 100 ML IV SCH (05:47)
[2020-05-20 05:59] LABS: ALBUMIN 2.3 g/dL (3.5-5.0); BILIRUBIN,TOTAL 0.4 mg/dL (0.2-1.0); CREATININE 0.6 mg/dL (0.5-1.5); MAGNESIUM 1.7 mg/dL (1.80-2.40); PHOSPHORUS 3.2 mg/dL (2.5-4.9); POTASSIUM 3.9 mmol/L (3.5-5.1); TOTAL PROTEIN, SERUM 7.1 g/dL (6.0-8.3)
[2020-05-20] MEDS: MAGNESIUM 2GM PREMIX 50ML 50 ML IV SCH (06:40)
[2020-05-20] MEDS: FLUCONAZOLE 200 MG/NS 100 ML 100 ML IV SCH (08:48)
[2020-05-20] MEDS: PANTOPRAZOLE 40 MG/VIAL IV SCH (08:48)
[2020-05-20] MEDS: QUETIAPINE FUMARATE 25 MG TAB NG SCH (08:49)
[2020-05-20] MEDS: LABETALOL HCL 200 MG TABLET PO SCH (08:49)
[2020-05-20] MEDS: ENOXAPARIN SODIUM 40 MG/0.4 ML SYRINGE SQ SCH (08:50)
[2020-05-20] MEDS: SENNOSIDES 8.6 MG TABLET PO SCH (09:00)
[2020-05-20] MEDS: INSULIN GLARGINE 100 UNITS/ML 10 ML VIAL SQ SCH (09:26)
[2020-05-20] MEDS: IRON SUCROSE COMPLEX 100 MG in 0.9%NACL 50ML 50 ML IV SCH (09:29)
[2020-05-20 09:54] LABS: ABG BASE EXCESS -1.3 mmol/L (-2.0-3.0); ABG HCO3 22.3 mmol/L (21.0-28.0); ABG OXYGEN SATURATION 98.1 % (95.0-99.0); ABG PCO2 35 mmHg (35-48)
[2020-05-20] MEDS: HONEY 1 APPL/ML TUBE TP SCH (14:29)
== END 2020-05-20 16:33 | DRG 4 ==
LOC: EDH 20:28 → EDHIP 22:42 → 4AH 04-03 04:05 → 2AH 04-05 00:55 → 2BH 04-20 06:40
PROVIDERS: ADMIT Family Medicine; ATTEND Family Medicine
PROC: XW13325 Transfusion of Convalescent Plasma (Nonautologous) into Peripheral Vein, Percutaneous Approach, New Technology Group 5 (ICD-10-PCS; 2020-04-03)
PROC: 5A1955Z Respiratory Ventilation, Greater than 96 Consecutive Hours (ICD-10-PCS; 2020-04-05)
PROC: 5A09357 Assistance with Respiratory Ventilation, Less than 24 Consecutive Hours, Continuous Positive Airway Pressure (ICD-10-PCS; 2020-04-05)
PROC: 0BH17EZ Insertion of Endotracheal Airway into Trachea, Via Natural or Artificial Opening (ICD-10-PCS; 2020-04-05)
PROC: 02HV33Z Insertion of Infusion Device into Superior Vena Cava, Percutaneous Approach (ICD-10-PCS; 2020-04-08)
PROC: B548ZZA Ultrasonography of Superior Vena Cava, Guidance (ICD-10-PCS; 2020-04-08)
PROC: XW033E5 Introduction of Remdesivir Anti-infective into Peripheral Vein, Percutaneous Approach, New Technology Group 5 (ICD-10-PCS; 2020-04-08)
PROC: 0BJ08ZZ Inspection of Tracheobronchial Tree, Via Natural or Artificial Opening Endoscopic (ICD-10-PCS; 2020-04-20)
PROC: 0BC78ZZ Extirpation of Matter from Left Main Bronchus, Via Natural or Artificial Opening Endoscopic (ICD-10-PCS; 2020-05-01)
PROC: 0BC38ZZ Extirpation of Matter from Right Main Bronchus, Via Natural or Artificial Opening Endoscopic (ICD-10-PCS; 2020-05-01)
PROC: 5A1955Z Respiratory Ventilation, Greater than 96 Consecutive Hours (ICD-10-PCS; 2020-05-01)
PROC: 5A09357 Assistance with Respiratory Ventilation, Less than 24 Consecutive Hours, Continuous Positive Airway Pressure (ICD-10-PCS; 2020-05-01)
PROC: 0BH17EZ Insertion of Endotracheal Airway into Trachea, Via Natural or Artificial Opening (ICD-10-PCS; 2020-05-01)
PROC: 30233N1 Transfusion of Nonautologous Red Blood Cells into Peripheral Vein, Percutaneous Approach (ICD-10-PCS; 2020-05-05)
PROC: 0B110F4 Bypass Trachea to Cutaneous with Tracheostomy Device, Open Approach (ICD-10-PCS; principal; 2020-05-08 16:39)
PROC: 5A09357 Assistance with Respiratory Ventilation, Less than 24 Consecutive Hours, Continuous Positive Airway Pressure (ICD-10-PCS; 2020-05-14)
PROC: 0DH63UZ Insertion of Feeding Device into Stomach, Percutaneous Approach (ICD-10-PCS; 2020-05-18)
DX: U07.1 COVID-19 (principal); A41.89 Other specified sepsis; J12.82 Pneumonia due to coronavirus disease 2019; N17.0 Acute kidney failure with tubular necrosis; R65.21 Severe sepsis with septic shock; J80 Acute respiratory distress syndrome; E87.1 Hypo-osmolality and hyponatremia; E87.0 Hyperosmolality and hypernatremia; J95.851 Ventilator associated pneumonia; K56.7 Ileus, unspecified; N39.0 Urinary tract infection, site not specified; Z16.12 Extended spectrum beta lactamase (ESBL) resistance; Z16.24 Resistance to multiple antibiotics; Z99.11 Dependence on respirator [ventilator] status; J93.82 Other air leak; B97.89 Other viral agents as the cause of diseases classified elsewhere; E86.1 Hypovolemia; I12.9 Hypertensive chronic kidney disease with stage 1 through stage 4 chronic kidney disease, or unspecified chronic kidney disease; E11.649 Type 2 diabetes mellitus with hypoglycemia without coma; D50.9 Iron deficiency anemia, unspecified; L89.159 Pressure ulcer of sacral region, unspecified stage; L89.309 Pressure ulcer of unspecified buttock, unspecified stage; K76.0 Fatty (change of) liver, not elsewhere classified; D72.810 Lymphocytopenia; E11.22 Type 2 diabetes mellitus with diabetic chronic kidney disease; E11.65 Type 2 diabetes mellitus with hyperglycemia; E03.9 Hypothyroidism, unspecified; E78.5 Hyperlipidemia, unspecified; K52.9 Noninfective gastroenteritis and colitis, unspecified; E66.9 Obesity, unspecified; E83.42 Hypomagnesemia; E87.5 Hyperkalemia; E87.6 Hypokalemia; E88.09 Other disorders of plasma-protein metabolism, not elsewhere classified; B96.1 Klebsiella pneumoniae [K. pneumoniae] as the cause of diseases classified elsewhere; N18.9 Chronic kidney disease, unspecified; N28.1 Cyst of kidney, acquired; R13.12 Dysphagia, oropharyngeal phase; R63.3 Feeding difficulties; T38.0X5A Adverse effect of glucocorticoids and synthetic analogues, initial encounter; Z68.30 Body mass index [BMI] 30.0-30.9, adult; Z74.01 Bed confinement status; Z87.730 Personal history of (corrected) cleft lip and palate; Z83.3 Family history of diabetes mellitus; Z82.49 Family history of ischemic heart disease and other diseases of the circulatory system; B96.20 Unspecified Escherichia coli [E. coli] as the cause of diseases classified elsewhere; Y83.8 Other surgical procedures as the cause of abnormal reaction of the patient, or of later complication, without mention of misadventure at the time of the procedure; Y82.8 Other medical devices associated with adverse incidents; Y92.89 Other specified places as the place of occurrence of the external cause
CPT/HCPCS: 31500; 36415; 36430; 36569; 36600; 43246; 71045; 71250; 74018; 76700; 80048; 80053; 81001; 82270; 82306; 82340; 82435; 82436; 82550; 82728; 82803; 82947; 82948; 83036; 83540; 83550; 83605; 83615; 83735; 83880; 83935; 84100; 84105; 84132; 84133; 84145; 84156; 84295; 84300; 84439; 84443; 84478; 84484; 85018; 85025; 85045; 85378; 85610; 85730; 86140; 86850; 86900; 86901; 86923; 86927; 87040; 87070; 87071; 87076; 87077; 87088; 87116; 87177; 87186; 87205; 87206; 87426; 87804; 93005; 93306; 93308; 93356; 93970; 94002; 94003; 94640; 94660; 99291; C1894; C9113; G0378; J0330; J0360; J0456; J0610; J0692; J0696; J1100; J1450; J1650; J1756; J1815; J1940; J2001; J2020; J2060; J2185; J2250; J2405; J2543; J2704; J2930; J2997; J3010; J3475; J3480; J3490; J7040; J7050; J7070; J7120; J7608; P9016; P9047; U0003

== ENCOUNTER → 2021-04-29 | Outpatient (CLI) | payer MEDICARE ==
[~2021-04-29] MED LIST changes: +CHOL500051 PO; -DOXA1TAB2 PO; -HYDR25TA PO; +INSU100I3 SQ; +INSU200I4 SQ; -INSU500I SQ; +OLME20TA22 PO
== END | disposition home or self-care (01) ==
LOC: RAH 09:42
PROVIDERS: ATTEND Internal Medicine
DX: R63.30 Feeding difficulties, unspecified (principal); R13.12 Dysphagia, oropharyngeal phase
CPT/HCPCS: 74230; 92611

== ENCOUNTER → 2021-11-10 | Outpatient (CLI) | payer MEDICARE ==
[~2021-11-10] MED LIST changes: +IOHEXOL 350 MG/ML 100ML INFUS..BTL IV ONE
== END | disposition home or self-care (01) ==
LOC: RAH 09:29
PROVIDERS: ATTEND Student in an Organized Health Care Education/Training Program
DX: R10.11 Right upper quadrant pain (principal); Z90.49 Acquired absence of other specified parts of digestive tract
CPT/HCPCS: 74177; Q9967

== ENCOUNTER 2022-01-27 10:19 | Day surgery (SDC) | payer MEDICARE ==
[2022-01-27] VITALS (11 sets, daily range): BP systolic 105–140; BP diastolic 53–69
[~2022-01-27] VITALS: Ht 157.5 cm; Wt 83.5 kg
[~2022-01-27 10:19] MED LIST changes: +AMLO-257 PO; +ASPI-1197 PO; +ATOR10 PO; +CHOL400C9 PO; +DOCU100T PO; +DULO30CA52 PO; +EMPA25TA PO; +FOLIC ACID PO; +GABA300S PO; +HYDR25TA PO; -INSU100I3 SQ; -IOHEXOL 350 MG/ML 100ML INFUS..BTL IV ONE; +IRON PO; +Insulin Aspart SQ; +LABE100T7 PO; +LORA10TA7 PO; +LOSA50TA64 PO; +MONT-39 PO; +VITAMIN B12 PO
[2022-01-27] MEDS ORDERED: 0.9%NACL 1000ML 1,000 ML IV ONE (11:03)
[2022-01-27] MEDS ORDERED: PROPOFOL 10 MG/ML 20ML VIAL IV ONE ×2 (11:46→14:15)
[2022-01-27] MEDS ORDERED: MECL-160 PO (11:59)
== END 2022-01-27 15:30 | disposition home or self-care (01) ==
LOC: ENDO 10:19 → DAH 10:19 → ENDO 15:30
PROVIDERS: ATTEND Internal Medicine Gastroenterology
DX: Z12.11 Encounter for screening for malignant neoplasm of colon (principal); Z20.822 Contact with and (suspected) exposure to COVID-19; K64.0 First degree hemorrhoids; K21.00 Gastro-esophageal reflux disease with esophagitis, without bleeding; K29.50 Unspecified chronic gastritis without bleeding; K44.9 Diaphragmatic hernia without obstruction or gangrene; K22.2 Esophageal obstruction; I10 Essential (primary) hypertension; E11.9 Type 2 diabetes mellitus without complications; E78.5 Hyperlipidemia, unspecified; E03.9 Hypothyroidism, unspecified; Z79.899 Other long term (current) drug therapy; Z98.890 Other specified postprocedural states; Z86.16 Personal history of COVID-19; Z82.49 Family history of ischemic heart disease and other diseases of the circulatory system; Z83.3 Family history of diabetes mellitus; Z83.438 Family history of other disorder of lipoprotein metabolism and other lipidemia; Z79.82 Long term (current) use of aspirin
CPT/HCPCS: 87426; 43249; 82948; 88305; 88342; 43239; G0121; J7030 ×2; J2704 ×2; A4620; A4215; A4223; A4222; A4221; A4663; A4606; 45378; 93005

== ENCOUNTER 2022-12-23 07:50 | Emergency (ER) | payer MEDICARE ==
[~2022-12-23] VITALS: Ht 157.5 cm; Wt 89.8 kg
[~2022-12-23 07:50] MED LIST changes: +AA8/1CAP3 PO; +ACET325T51 PO; -AMLO-258 PO; +BUDE0.5A3 IH; +CHOL1CRY2 MC; -CHOL400C9 PO; +DOCU100P PO; +FOLI0.8T2 PO; -GABA300S PO; +GABA300S3 PO; +GUAI-899 PO; -IRON PO; +LACT10SO9 PO; +LEVO100T12 PO; -MECL-160 PO; +MECL-302 PO; +NUTR1PAC14 PO; +POLY119P17 PO; -PRAV80TA21 PO
[2022-12-23 08:30] LABS: BASOPHILS # (AUTO) 0.04 K/uL (0.00-0.20); BASOPHILS % (AUTO) 0.6 % (0.0-5.0); EOSINOPHILS # (AUTO) 0.07 K/uL (0.00-0.70); HEMATOCRIT 41.9 % (42-54); IMMATURE GRANULOCYTE ABSOLUTE 0.03 K/uL (0-1); LYMPHOCYTES # (AUTO) 1.6 K/uL (1.0-4.8); LYMPHOCYTES % (AUTO) 21.5 % (21.0-51.0); MEAN CORPUSCULAR HEMOGLOBIN 29.5 pg (27.0-33.0); MEAN CORPUSCULAR HGB CONC 34.1 g/dL (32.0-36.0); MEAN CORPUSCULAR VOLUME 86.6 fL (79-99); MONOCYTES # (AUTO) 0.7 K/uL (0.1-1.0); MONOCYTES % (AUTO) 9.2 % (3.0-13.0); NEUTROPHILS # (AUTO) 4.9 K/uL (1.8-7.7); NEUTROPHILS % (AUTO) 67.3 % (40.0-77.0); PLATELET COUNT (AUTO) 268 K/uL (130-400); RED BLOOD CELL COUNT(AUTO) 4.84 MIL/uL (4.50-6.20); RED CELL DISTRIBUTION WIDTH 13.2 % (11.0-15.5); WHITE BLOOD COUNT (AUTO) 7.3 K/uL (4.8-10.8)
[2022-12-23 08:47] LABS: ALBUMIN 3.5 g/dL (3.5-5.0); BILIRUBIN,TOTAL 0.3 mg/dL (0.2-1.0); TOTAL PROTEIN, SERUM 8.4 g/dL (6.0-8.3)
[2022-12-23] MEDS ORDERED: BENZONATATE 100 MG CAPSULE PO ONE (09:00)
[2022-12-23] MEDS ORDERED: MORPHINE 4 MG SYG IVP ONE (09:00)
[2022-12-23] MEDS ORDERED: ALBUTEROL 0.083% 2.5 MG/3 ML INH IH ONE (09:00)
[2022-12-23] MEDS ORDERED: SOLU-MEDROL 125MG VIAL IVP ONE (09:00)
[2022-12-23] MEDS ORDERED: 0.9%NACL 1000ML 546 ML IV ONE (09:00)
[2022-12-23 09:26] VITALS: PULSE 95; RESP 24
[2022-12-23 10:39] LABS: APPEARANCE,URINE CLEAR (CLEAR); BILIRUBIN,URINE NEGATIVE (NEGATIVE); COLOR,URINE COLORLESS (YELLOW); GLUCOSE, URINE (UA) >=1000 mg/dL (NEGATIVE); KETONES,URINE 20 mg/dL (NEGATIVE); LEUKOCYTE ESTERASE ,URINE NEGATIVE Leu/uL (NEGATIVE); NITRATE,URINE NEGATIVE (NEGATIVE); PROTEIN,URINE 50 mg/dL (NEGATIVE); UROBILINOGEN,URINE 0.2 mg/dL (0.2-1.0)
[2022-12-23 10:40] LABS: ADD UA MICROSCOPIC YES
[2022-12-23 10:41] LABS: RBC,URINE 0-1 /HPF (0-1); SQUAMOUS EPITHELIAL CELL,UR RARE /HPF (0-2)
[2022-12-23] MEDS ORDERED: IOHEXOL-350 75 ML VIAL IV ONE (11:18)
[2022-12-23] MEDS ORDERED: AUD IH (12:25)
[2022-12-23] MEDS ORDERED: ALBUHFA IH (12:25)
[2022-12-23] MEDS ORDERED: POTASSIUM BICARB/CIT AC 25 MEQ TABLET.EFF PO ONE (15:30)
[2022-12-23 15:37] VITALS: BP 155/75; PULSE 88; RESP 20; O2SAT 96
== END 2022-12-23 15:45 | disposition home or self-care (01) ==
LOC: EDH 07:50
DX: J45.909 Unspecified asthma, uncomplicated (principal); E86.0 Dehydration; E87.6 Hypokalemia; E11.9 Type 2 diabetes mellitus without complications; E78.00 Pure hypercholesterolemia, unspecified; I10 Essential (primary) hypertension; Z79.82 Long term (current) use of aspirin; Z79.84 Long term (current) use of oral hypoglycemic drugs; Z79.890 Hormone replacement therapy; Z79.899 Other long term (current) drug therapy; Z86.73 Personal history of transient ischemic attack (TIA), and cerebral infarction without residual deficits
CPT/HCPCS: 99285; 74178; 96374; 71045; 96375; 84484; 80053; 83690; 85025; 81001; 36415; 74021; 93005; 94640; J2930; J2270; Q9967

== ENCOUNTER → 2024-01-11 | Outpatient (CLI) | payer MEDICARE ==
[~2024-01-11] MED LIST changes: +ACET-3859 PO; -ACET325T51 PO; +ALBUHFA IH; +AUD IH; -OLME20TA22 PO; +OLME20TA68 PO
--- NOTE | 2024-01-11 12:31 | HMCIMG ---
US ABDOMINAL COMPLETE REASON: unspecified abd pain COMPARISON: 04/05/2020 FINDINGS: There is normal sonographic appearance of the liver. There are no focal mass lesions. The liver is not enlarged.There are stones present in an otherwise normal-appearing gallbladder. There is no wall thickening or edema. There is 1.4 cm cyst upper pole right kidney and a 2.2 cm cyst lower pole left kidney. Kidneys appear otherwise normal in size and appearance. There is no evidence of mass, stone or hydronephrosis. Spleen and common duct appear normal. Aorta and inferior vena cava appear normal. The pancreas appears normal as well. IMPRESSION: 1. Small bilateral renal cysts. 2. Cholelithiasis without evidence of acute cholecystitis. 3. No acute finding.
== END | disposition home or self-care (01) ==
LOC: RAH 09:33
PROVIDERS: ATTEND Nurse Practitioner Family
DX: N28.1 Cyst of kidney, acquired (principal); K80.20 Calculus of gallbladder without cholecystitis without obstruction; R10.9 Unspecified abdominal pain
CPT/HCPCS: 76700